=== PATIENT | female | born 1935 | race Caucasian/White ===

== ENCOUNTER → 2016-07-12 | Outpatient (CLI) | payer MEDICARE ==
[2015-09-02 19:00] VITALS: BP 165/85
[~2016-07-12] MED LIST: ALIS300T PO; DILT300C23 PO; MELO-156 PO; ORPH100T PO; TRAM50TA PO
--- NOTE | 2016-07-12 14:53 | RAD ---
Indication screening for osteoporosis. The lumbar spine and right hip were evaluated. Note is made of a previous examination 08/26/2008. The lumbar spine the average bone mineral density is approximately 1.28 g/cc. The average T score is 0.8 however the T score at L1 is -1.6 indicative of some demineralization associated with this vertebral body segment. In the right hip the average bone mineral density is approximately 0.84 g/cc. T score of -1.3 is indicative of osteopenia. Note is made that the right hip was osteopenic on the previous examination as well IMPRESSION: Bony demineralization at L1. The remainder of the lumbar vertebral body segments have normal bone mineral density. Osteopenic right hip similar to the previous exam
--- NOTE | 2016-07-12 15:47 | RAD ---
Indication calcification in the neck. Grayscale color Doppler and spectral imaging was performed. Examination was targeted to the carotid bifurcations. On the left there is some moderate atherosclerotic plaquing. The color Doppler images do not suggest significant turbulence. The common carotid waveform and velocities are normal. The internal carotid is somewhat tortuous. The waveform and velocities associated with the internal carotid are normal. The external carotid has a normal appearance. The left vert demonstrates antegrade flow. On the right there is some plaquing at the carotid bifurcations similar to the contralateral side. The color Doppler images do not suggest significant turbulence. The common carotid waveform and velocities are normal. The internal carotid waveform and velocities are normal. The internal carotid is noted to be tortuous similar to the contralateral side. The external carotid has a normal appearance. The vertebral is patent and demonstrates normal directional flow. IMPRESSION: Modest atherosclerotic plaquing at the carotid bifurcations. No evidence of hemodynamically significant stenosis at either carotid bifurcation. Stenosis 0-50%. Note: Stenosis calculations for CT, MR and conventional angiography are based upon determination of the distal ICA diameter in accordance with the NASCET methodology. Stenosis calculations for doppler studies are derived from validated velocity criteria which are known to correlate with NASCET methodology of determining stenosis.
--- NOTE | 2016-07-12 16:29 | RAD ---
DATE: 07/12/2016 EXAM: MAMMO PATEL SCREENING BILATERAL HISTORY: Screening COMPARISON: Digitized film screening examination 10/17/2012 This study was interpreted with the benefit of Computerized Aided Detection (CAD). FINDINGS: The breast parenchyma shows scattered fibroglandular densities. Breast parenchyma level B. There has been no significant change in the appearance of the breasts compared to the previous exam IMPRESSION: Benign finding BI-RADS CATEGORY: 2 BENIGN FINDING(S) RECOMMENDED FOLLOW-UP: 12M 12 MONTH FOLLOW-UP PQRS compliance statement: Patient information was entered into a reminder system with a target due date 07/12/2017 for the next mammogram. Mammography is a sensitive method for finding small breast cancers, but it does not detect them all and is not a substitute for careful clinical examination. A negative mammogram does not negate a clinically suspicious finding and should not result in delay in biopsying a clinically suspicious abnormality. "Our facility is accredited by the [employer] Mammography Program."
== END | disposition home or self-care (01) ==
LOC: US 13:03
PROVIDERS: ATTEND Family Medicine
DX: Z12.31 Encounter for screening mammogram for malignant neoplasm of breast (principal); Z13.820 Encounter for screening for osteoporosis; M85.80 Other specified disorders of bone density and structure, unspecified site; Z78.0 Asymptomatic menopausal state; I65.23 Occlusion and stenosis of bilateral carotid arteries; R22.1 Localized swelling, mass and lump, neck
CPT/HCPCS: 77063; 77080; 93880; G0202; 77067

== ENCOUNTER → 2016-09-29 | Outpatient (CLI) | payer MEDICARE ==
[2015-09-02 19:00] VITALS: BP 165/85
[~2016-09-29] MED LIST changes: -MELO-156 PO; +MELO7.5T29 PO; +ORPH-16 PO; -ORPH100T PO
--- NOTE | 2016-09-29 15:34 | RAD ---
CT of the chest without contrast, 09/29/2016: History: Infiltrates, COPD Noncontrast scans were obtained as requested. Comparison is made to a study from 06/16/2016. There are mild emphysematous changes in the lungs. Scattered linear parenchymal opacities are compatible with scars. There is unchanged right apical scarring. The small groundglass opacity seen posteriorly in the left upper lobe on the previous study is unchanged. It is currently best visualized on image 35 of series #2 and measures approximately 10 mm. No solid component is seen. A similar groundglass type opacity is noted in the right upper lobe on image 47 of series #2. It measures approximately 12 mm and is unchanged. A smaller hazy groundglass opacity in the superior segment of the right lower lobe as seen on image 80 of series #4 is also unchanged. No new or enlarging pulmonary opacities are seen. There is no evidence of pleural fluid. There is moderate calcific plaquing of the thoracic aorta and the coronary arteries. A small hiatal hernia is noted. Several small mediastinal lymph nodes are seen. The largest of these lies at the AP window level and measures 9 mm in short axis dimension. No definite adenopathy is seen. Incidental note is made of a nonobstructing intrarenal calculus in the upper pole of the left kidney. IMPRESSION: 1. Emphysema with bilateral parenchymal scarring. 2. Unchanged small bilateral groundglass opacities as described above. While these may represent scars, the possibility of atypical adenomatous hyperplasia or adenocarcinoma in situ persists. Further CT follow-up is suggested. According to the latest Fleischner guidelines (2017), follow-up CT in 2 years may be considered. 3. Extensive coronary artery calcifications. 4. Small hiatal hernia. 5. Small left intrarenal calculus. PQRS Compliance Statement: One or more of the following individualized dose reduction techniques were utilized for this examination: 1. Automated exposure control 2. Adjustment of the mA and/or kV according to patient size 3. Use of iterative reconstruction technique
== END | disposition home or self-care (01) ==
LOC: CT 12:41
PROVIDERS: ATTEND Internal Medicine Pulmonary Disease
DX: I25.10 Atherosclerotic heart disease of native coronary artery without angina pectoris (principal); J44.9 Chronic obstructive pulmonary disease, unspecified; K44.9 Diaphragmatic hernia without obstruction or gangrene; Z87.891 Personal history of nicotine dependence
CPT/HCPCS: 71250

== ENCOUNTER → 2016-11-22 | Outpatient (CLI) | payer MEDICARE ==
[2015-09-02 19:00] VITALS: BP 165/85
--- NOTE | 2016-11-22 10:10 | CARD ---
APPROVED REPORT EXAM: Two-dimensional and M-mode echocardiogram with Doppler and color Doppler. Other Information Quality : Average Rhythm : NSR INDICATION Cardiac Disease: CAD 2D DIMENSIONS RVDd3.0 (2.9-3.5cm)Left Atrium(2D)3.0 (1.6-4.0cm) IVSd0.8 (0.7-1.1cm)Aortic Root(2D)2.2 (2.0-3.7cm) LVDd4.4 (3.9-5.9cm)LVOT Diameter2.0 (1.8-2.4cm) PWd0.8 (0.7-1.1cm)LVDs2.9 (2.5-4.0cm) FS (%) 31.3 %SV53.8 ml LVEF(%)60.1 (>50%) Aortic Valve AoV Peak Calvin.121.9cm/sAoV VTI27.8cm AO Peak GR.5.9mmHgLVOT Peak Calvin.84.6cm/s LVOT VTI 22.05cmAO Mean GR.3mmHg FRANCESCO (VMAX)2.42aw9ZRL (VTI)2.50cm2 Mitral Valve MV E Bfmzhkft06.8cm/sMV DECEL DBCN899bt MV A Jpatkxsl80.3cm/sMV MMK42hi E/A Ratio0.7MV A Hrgovhvr344fg MVA (PHT)3.16cm2 Tricuspid Valve TR P. Otbtrnty014rt/sRAP KZMOMOAM9mcVc TR Peak Gr.19jqPfYHFI09niGt Pulmonary Vein S1 Iuxzvilw56.5cm/sD2 Bxwzqygv94.3cm/s LEFT VENTRICLE The left ventricle is normal size. There is normal left ventricular wall thickness. Left ventricle sy stolic function is normal. The Ejection Fraction is 55-60%. There is normal LV segmental wall motion. Tissue Doppler imaging reveals mild left ventricular diastolic dysfunction. There is no ventricular septal defect visualized. RIGHT VENTRICLE The right ventricle is normal size. The right ventricular systolic function is normal. ATRIA The left atrium size is normal. The right atrium size is normal. The interatrial septum is intact wit h no evidence for an atrial septal defect or patent foramen ovale as noted on 2-D or Doppler imaging. AORTIC VALVE The aortic valve is mildly sclerotic and grossly cannot determine if it is trileaflet but the valve a ppears to open well. Doppler and Color Flow revealed no significant aortic regurgitation. There is no significant aortic valvular stenosis. MITRAL VALVE Mitral annular calcification is mild. There is no mitral valve stenosis. Doppler and Color Flow revea led no mitral valve regurgitation noted. TRICUSPID VALVE The tricuspid valve is normal in structure and function. There is tricuspid annular calcification. Do ppler and Color Flow revealed trace to mild tricuspid regurgitation. The PA pressure was estimated at 36 mmHg. There is no tricuspid valve stenosis. PULMONIC VALVE The pulmonic valve is not well visualized. Doppler and Color Flow revealed no pulmonic valvular regur gitation. There is no pulmonic valvular stenosis. GREAT VESSELS The aortic root is normal in size. The ascending aorta is normal in size. Normal pulmonary venous katarina w (Doppler). The IVC is normal in size and collapses >50% with inspiration. PERICARDIAL EFFUSION There is no evidence of significant pericardial effusion. Critical Notification Critical Value: No <Conclusion> Left ventricle systolic function is normal. The Ejection Fraction is 55-60%. There is normal LV segmental wall motion.
== END | disposition home or self-care (01) ==
LOC: ECHO 09:04
PROVIDERS: ATTEND Internal Medicine Cardiovascular Disease
DX: I25.10 Atherosclerotic heart disease of native coronary artery without angina pectoris (principal)
CPT/HCPCS: 93306

== ENCOUNTER → 2017-03-03 | Outpatient (CLI) | payer MEDICARE ==
[2015-09-02 19:00] VITALS: BP 165/85
--- NOTE | 2017-03-03 12:31 | RAD ---
CT study of chest without contrast Indications: Lung nodule follow-up. COPD. Former smoker. Comparison: September 29, 2016. Technique: Noncontrast helical CT scanning of the chest was performed. Without contrast, the sensitivity to detect organ pathology is decreased. PQRS Compliance Statement: One or more of the following individualized dose reduction techniques were utilized for this examination: 1. Automated exposure control 2. Adjustment of the mA and/or kV according to patient size 3. Use of iterative reconstruction technique Findings: No enlarged thoracic lymphadenopathy is evident. Extensive calcified atheromatous disease of the coronary arteries is seen. The heart size is normal. Small hiatal hernia is evident. No focal aneurysmal dilatation of the thoracic aorta is seen. Groundglass nodular lung infiltrate is seen without solid component within the posterior segment of the left upper lobe and hasn't changed significantly. This is seen best on image 117 and series 2. Again seen is a groundglass nodular lung infiltrate within the lateral aspect of the right upper lobe seen best on image 145 and series 2. No solid component is seen. Again seen is chronic scarring within the lingula and both lower lobes and the lateral aspect of the right middle lobe which are stable. No new lung infiltrate is seen. No pleural effusion or pneumothorax is seen. The proximal bronchial tree is stable. No adrenal mass is seen. Punctate renal stone of the upper pole of the left kidney is seen. No osteolytic process is seen. Again seen is a mild compression fracture of T12 which is stable. IMPRESSION: Stable groundglass lung nodules. Recommend follow-up noncontrast chest CT in 2 years as per recommendations of Fleischner criteria guidelines. No acute lung infiltrate. Calcified atheromatous disease of the coronary arteries.
== END | disposition home or self-care (01) ==
LOC: CT 08:44
PROVIDERS: ATTEND Internal Medicine Cardiovascular Disease
DX: J98.4 Other disorders of lung (principal); I25.10 Atherosclerotic heart disease of native coronary artery without angina pectoris; K44.9 Diaphragmatic hernia without obstruction or gangrene; M48.54XD Collapsed vertebra, not elsewhere classified, thoracic region, subsequent encounter for fracture with routine healing; N20.0 Calculus of kidney
CPT/HCPCS: 71250

== ENCOUNTER → 2017-03-21 | Outpatient (CLI) | payer MEDICARE ==
[2015-09-02 19:00] VITALS: BP 165/85
[~2017-03-21] MED LIST changes: +IOHEXOL 300 MG/ML 75 ML VIAL. IV ONE
[2017-03-21 13:33] LABS: CALCIUM 9.3 mg/dL (8.5-10.1); CREATININE 0.9 mg/dL (0.6-1.0); GFR 60.4; POTASSIUM 3.6 mmol/L (3.5-5.1)
--- NOTE | 2017-03-21 15:09 | RAD ---
CT angiogram of the abdomen and pelvis Indication: Leg pain for last 2 days. Physician could not feel femoral pulse. Evaluate for AAA. Technique: CT angiogram of the abdomen and pelvis with 75 mL of Omnipaque 300 with multiplanar MIP reformats. Comparison: None Findings: Heart is normal in size. No pericardial or pleural effusion. Subsegmental atelectasis or scarring in the right lung base. Liver is normal in morphology without focal hepatic lesion. Spleen is not enlarged. Gallstone noted. No pericholecystic fluid or gallbladder wall thickening. Pancreas show no focal lesion. Adrenal glands are within normal limits. No suspicious renal lesion. 1.7 cm simple left renal cyst. No retroperitoneal or pelvic adenopathy. No bowel obstruction. No abnormal bowel wall thickening or enhancement. Bladder within normal limits. Uterus is present. No solid adnexal lesions. Bilateral ovaries are visualized and are within normal limits. Moderate sliding hiatal hernia. Diffuse atherosclerotic disease of the abdominal aorta noted. The infrarenal abdominal aorta measures 1.9 cm in diameter without aneurysmal dilation. Moderate atherosclerotic disease noted at the origin of the celiac axis. The left gastric artery, splenic artery, common hepatic artery are patent. Atherosclerotic disease of the splenic artery noted. SMA is patent with mild atherosclerotic disease at the level of the first jejunal branch takeoff. There is early bifurcation of the right renal artery after its origin without atherosclerotic disease at its origin. Mild atherosclerotic disease noted at the region of the left renal artery which is patent.. ZARIA is thin caliber but patent. There is partially calcified aortic wall with nodular mural thrombus in the infrarenal aorta. Severe atherosclerotic disease with multifocal areas of stenosis seen in the bilateral common iliac arteries and bilateral external/internal iliac arteries with segments demonstrating more than 70% stenosis. More than 70% stenosis noted of the bilateral common femoral arteries. Bilateral profunda femoris arteries are patent. Moderate to severe atherosclerotic disease noted of the bilateral proximal SFA. Old healed fracture deformity of the bilateral inferior pubic rami noted. No suspicious bony lesion. Degenerative disc disease noted at L2-L3 and L5-S1. Impression: 1. No evidence of abdominal aortic aneurysm or dissection. 2. Advanced atherosclerotic disease of the abdominal aorta and bilateral iliac arteries with multifocal areas of stenosis (more than 70%) as discussed above. 3. Cholelithiasis without acute cholecystitis. PQRS Compliance Statement: One or more of the following individualized dose reduction techniques were utilized for this examination: 1. Automated exposure control 2. Adjustment of the mA and/or kV according to patient size 3. Use of iterative reconstruction technique
== END | disposition home or self-care (01) ==
LOC: LAB 12:55
PROVIDERS: ATTEND Family Medicine
DX: I73.89 Other specified peripheral vascular diseases (principal); K44.9 Diaphragmatic hernia without obstruction or gangrene; I70.0 Atherosclerosis of aorta; K80.20 Calculus of gallbladder without cholecystitis without obstruction
CPT/HCPCS: 36415; 74174; 80048; Q9967

== ENCOUNTER 2017-03-22 06:01 | Emergency (ER) | payer MEDICARE ==
[~2017-03-22] VITALS: Ht 170.2 cm; Wt 74.9 kg
[~2017-03-22 06:01] MED LIST changes: -IOHEXOL 300 MG/ML 75 ML VIAL. IV ONE
--- NOTE | 2017-03-22 06:40 | EKG ---
[address] [address] Test Date: 2017-03-22 Test Time: 06:38:08 Pat Name: YOLA MENDOZA Department: Room: Gender: F Pattern Stamper: ALEX : 1935 Requested By: CHARITY WILSON Order Number: [id number] Reading MD: Rubio Velasco Measurements Intervals [place] Rate: 91 P: 39 AR: 134 QRS: -66 QRSD: 88 T: 65 QT: 354 QTc: 437 Interpretive Statements SINUS RHYTHM ABNORMAL LEFT AXIS DEVIATION LEFT ANTERIOR FASCICULAR BLOCK QRS(T) CONTOUR ABNORMALITY CONSIDER ANTEROSEPTAL MYOCARDIAL DAMAGE ABNORMAL ECG Electronically Signed On 03-27-2017 16:41:13 ARCHITECTURAL EXAMINER by Rubio Velasco
[2017-03-22 07:16] LABS: BASO % 0 % (0-3); EOS % 0 % (0-3); HEMATOCRIT 41.9 % (36.0-47.0); LYMPH % 20 % (24-48); MEAN CORPUSCULAR HEMOGLOBIN 31 pg (25-35); MEAN CORPUSCULAR HGB CONC 34 g/dL (31-37); MEAN CORPUSCULAR VOLUME 92 fL (79-100); MONO # 0.8 x10^3/uL (0.0-1.1); MONO % 8 % (0-9); NEUT # 7.3 x10^3uL (1.8-7.7); NEUT % 72 % (31-73); PLATELET COUNT 277 x10^3/uL (140-400); RED BLOOD COUNT 4.54 x10^6/uL (3.50-5.40); RED CELL DISTRIBUTION WIDTH 14.1 % (11.5-14.5); WHITE BLOOD COUNT 10.1 x10^3/uL (4.0-11.0)
--- NOTE | 2017-03-22 07:18 | RAD ---
Portable chest, 03/22/2017: History: COPD, shortness of breath Comparison is made to a study from 01/16/2015. The heart size is normal. There are minimal parenchymal scars. No pulmonary infiltrates are seen. There is no evidence of pleural fluid. IMPRESSION: No acute cardiopulmonary abnormality is detected.
--- NOTE | 2017-03-22 07:24 | PHYS DOC ---
Past History Past Medical History: COPD, Hypothyroid Past Surgical History: Tonsillectomy Alcohol Use: None Drug Use: None Adult General Chief Complaint Chief Complaint: SHORTNESS OF BREATH HPI HPI Patient is a 81-year-old female with a history of COPD who presents by EMS from home with shortness of air. Patient has been somewhat short of air lately. She saw her doctor recently and was started on an antibiotic and prednisone. She has been taking nebulized albuterol treatments at home. She does wear oxygen at night only. Patient was waking every 3 hours overnight last night to take albuterol treatments. This morning she woke up very short of air. Called 911. In route she was given 1 DuoNeb, 1 albuterol treatment, and Solu-Medrol 125 IV. On arrival she states she is feeling much better. PCP Dr. Bonds [employer] Dr. Jama Review of Systems Review of Systems Constitutional: Denies fever or chills [] Respiratory: As in history of present illness Cardiovascular: Denies chest pain GI: Denies vomiting, has had "a little bit" of diarrhea : Denies dysuria or hematuria [] Musculoskeletal: Denies back pain or joint pain [] Integument: Denies rash or skin lesions [] Neurologic: Denies headache, focal weakness or sensory changes [] All other systems were reviewed and found to be within normal limits, except as documented in this note. Allergies Allergies Allergies Coded Allergies Type Severity Reaction Last Updated Verified Tkqrbby-Mqj-Hcl Reductase Inhibitor Allergy Intermediate 03/22/17 Yes Physical Exam Physical Exam Constitutional: Well developed, well nourished, alert, mentating normally, warm and dry. She is mildly dyspneic at rest on the cart, persistent her lips to exhale, speaks in full sentences. HENT: Normocephalic, atraumatic, bilateral external ears normal, oropharynx moist, nose normal. [] Eyes: conjunctiva normal, no discharge. [] Neck: Normal range of motion, no stridor. [] Cardiovascular:Heart rate regular rhythm, no murmur [] Lungs & Thorax: Breath sounds are mildly decreased throughout. Prolonged expiratory phase. Expiratory wheezes present throughout. No consolidative changes. Abdomen: soft, no tenderness, no masses, no pulsatile masses. [] Skin: Warm, dry, no erythema, no rash. [] Extremities: No tenderness, no cyanosis, no clubbing, ROM intact, no edema. [] Neurologic: Alert and oriented X 3, normal motor function, no focal deficits noted. [] Current Patient Data Vital Signs Vital Signs Date Time Temp Pulse Resp B/P (MAP) Pulse Ox O2 Delivery O2 Flow Rate FiO2 03/22/17 06:28 98.5 87 18 94 Nasal Cannula 3.0 EKG EKG 12-lead EKG read by me. Sinus rhythm. Heart rate 91. There are no acute ST or T wave changes indicative of ischemia or infarction. No STEMI. [id number][] Radiology/Procedures Radiology/Procedures One view portable chest x-ray read by me. No acute infiltrates. Heart size normal. No pulmonary edema.[] Course & Med Decision Making Course & Med Decision Making Pertinent Labs and Imaging studies reviewed. (See chart for details) 81-year-old female with a history of COPD presents by EMS with shortness of air. EMS describes the patient as significantly dyspneic and an extremist on their arrival, however, she was given a DuoNeb plus an albuterol treatment plus Solu-Medrol 125 IV by EMS and on arrival to the ED she has improved. She remains slightly dyspneic at rest wearing oxygen, which is not her usual baseline. She will need to be hospitalized for pulmonary toilet, oxygen, IV steroids. I discussed this with the patient. Labs returned with elevated troponin. I revisited the patient. She has not had any chest pain. I reviewed the EKG. There is no STEMI pattern. I reviewed the patient's record. She did have a very similar presentation in 2014 when she presented with apparent COPD exacerbation, had elevated troponin, was transferred to [facility] for urgent cardiac catheterization where she had 3 stents placed. I discussed the case with Dr. Rodriguez, [facility]. She would like to consult cardiology on disposition [facility] versus [facility]. I discussed the case with Dr. Rowan, cardiology. He reviewed the patient's cardiac catheter and records. He recommends transfer to [facility] for hospitalization, cardiology evaluation. He feels that she may end up needing a heart catheter and so he wants her to be at [facility]. I discussed admission and transferred to [facility] with the patient and her family who are agreeable. The patient prefers not to be admitted to the hospital at all, but I discussed the reasoning behind admitting her and her family is agreeable to admitting her to [facility]. I discussed the case with Dr. Rangel, [facility]. He will accept the patient. Transfer paperwork was completed. The patient will be transferred in stable condition to [facility] for admission. We will give the patient aspirin and heparin here prior to transfer. Critical care time 60 minutes including bedside evaluation and reevaluation, evaluation and treatment of non-STEMI, reading EKG, discussion with [facility] hospitalist, discussion with die barber, discussion with [facility] hospitalist, discussion of diagnosis and transfer plans with patient and family, initiation of heparin, review of old records, documentation, writing orders, transfer arrangements. [] Dragon Disclaimer Dragon Disclaimer This electronic medical record was generated, in whole or in part, using a voice recognition dictation system. Departure Departure: Impression: Primary Impression: Non-STEMI (non-ST elevated myocardial infarction) Additional Impression: COPD exacerbation Referrals: IAN BONDS MD (PCP) Problem Qualifiers CHARITY WILSON MD Mar 22, 2017 07:24
[2017-03-22 07:42] LABS: ALBUMIN 3.4 g/dL (3.4-5.0); CALCIUM 8.9 mg/dL (8.5-10.1); GFR 53.5; POTASSIUM 3.7 mmol/L (3.5-5.1); TOTAL BILIRUBIN 0.3 mg/dL (0.2-1.0); TOTAL PROTEIN 6.9 g/dL (6.4-8.2)
[2017-03-22] MEDS ORDERED: HEPARIN 25,000UTS/500ML PREMIX 500 ML IV PRN (08:45)
[2017-03-22] MEDS ORDERED: ASPIRIN 81 MG TAB.CHEW PO ONE (09:00)
[2017-03-22] MEDS ORDERED: HEPARIN for IV BOLUS 10,000 UNIT/10 ML VIAL. IV ONE (09:00)
[2017-03-22] MEDS ORDERED: IPRATRPIUM/ALBUTEROL 0.5/2.5MG 3 ML NEBU. NEB ONE (10:00)
[2017-03-22 10:20] VITALS: BP 124/85
== END 2017-03-22 10:50 | disposition short-term general hospital (02) ==
LOC: ER 06:01
DX: J44.1 Chronic obstructive pulmonary disease with (acute) exacerbation (principal); I21.4 Non-ST elevation (NSTEMI) myocardial infarction; E03.9 Hypothyroidism, unspecified; Z99.81 Dependence on supplemental oxygen; Z88.8 Allergy status to other drugs, medicaments and biological substances
CPT/HCPCS: 36415; 71010; 80053; 82553; 83880; 84484; 85025; 93005; 94640; 96365; 96366; 99291; J1644; J7620

== ENCOUNTER 2017-06-02 15:37 | Emergency (ER) | payer MEDICARE ==
[~2017-06-02] VITALS: Ht 170.2 cm; Wt 74.9 kg
[2017-06-02] MEDS ORDERED: ASPIRIN 81 MG TAB.CHEW PO ONE (16:00)
[2017-06-02] MEDS ORDERED: methylPREDNISolone SOD SUCC PF 125 MG/2 ML VIAL. IV ONE (16:00)
[2017-06-02 16:14] LABS: BASO # 0.1 x10^3/uL (0.0-0.2); BASO % 1 % (0-3); EOS # 0.2 x10^3/uL (0.0-0.7); EOS % 2 % (0-3); HEMATOCRIT 44.4 % (36.0-47.0); HEMOGLOBIN 14.8 g/dL (12.0-15.5); LYMPH # 2.1 x10^3/uL (1.0-4.8); LYMPH % 20 % (24-48); MEAN CORPUSCULAR HEMOGLOBIN 30 pg (25-35); MEAN CORPUSCULAR HGB CONC 33 g/dL (31-37); MEAN CORPUSCULAR VOLUME 91 fL (79-100); MONO # 0.7 x10^3/uL (0.0-1.1); MONO % 7 % (0-9); NEUT # 7.4 x10^3uL (1.8-7.7); NEUT % 71 % (31-73); PLATELET COUNT 314 x10^3/uL (140-400); RED BLOOD COUNT 4.87 x10^6/uL (3.50-5.40); WHITE BLOOD COUNT 10.4 x10^3/uL (4.0-11.0)
--- NOTE | 2017-06-02 16:14 | RAD ---
Examination: Single frontal view the chest HISTORY: History of shortness of breath COMPARISON: None available FINDINGS: The cardiomediastinal silhouette grossly appears unremarkable. There is no acute infiltrate or visualized pneumothorax identified. IMPRESSION: No acute cardiopulmonary findings. Electronically signed by: Nagi Minor MD (06/02/2017 4:11 PM) [id number]
[2017-06-02 16:38] LABS: ALBUMIN 3.7 g/dL (3.4-5.0); ALBUMIN/GLOBULIN RATIO 1.1 (1.0-1.7); CALCIUM 10.2 mg/dL (8.5-10.1); CREATININE 0.9 mg/dL (0.6-1.0); GFR 60.4; INFLUENZA A PATIENT NEGATIVE (NEGATIVE); INFLUENZA B PATIENT NEGATIVE (NEGATIVE); POTASSIUM 4.1 mmol/L (3.5-5.1); TOTAL BILIRUBIN 0.4 mg/dL (0.2-1.0); TOTAL PROTEIN 7.1 g/dL (6.4-8.2)
--- NOTE | 2017-06-02 16:45 | PHYS DOC ---
General Chief Complaint: SHORTNESS OF BREATH Stated Complaint: SOA Time Seen by MD: 15:45 Source: patient Exam Limitations: no limitations Problems: History of Present Illness Initial Comments Patient is a 81-year-old female with history of COPD brought to the ED by EMS dyspnea. Patient states for the past 24 hours she's had shortness of breath and nonproductive cough. She has history of COPD and has home O2 for nighttime use however has been using it throughout the day today. She denies any chest pain fever chills or body aches, dyspnea primarily with activity none at rest. EMS reports symptomatic improvement with nebulizer treatment en route, on arrival vital signs: 98.1, 66, 20, 164/75, 93% on room air. Timing/Duration: 24 hours Severity: severe Modifying Factors: worse with movement, improves with rest Associated Symptoms: cough, shortness of breath, weakness Allergies: Coded Allergies: Kizofvz-Fgr-Tyi Reductase Inhibitor (Verified Allergy, Intermediate, 03/22) Past Medical History Medical History: other (COPD, hypothyroid) Surgical History: tonsillectomy Social History Smoker: quit greater than 1 year Alcohol: none Drugs: none Review of Systems Constitutional: see HPI Respiratory: see HPI Cardiovascular: denies chest pain, denies palpitations Gastrointestinal: denies abdominal pain, denies vomiting Musculoskeletal: denies back pain, denies joint swelling, denies neck pain Psychiatric/Neurological: denies headache, denies numbness, denies paresthesia Hematologic/Lymphatic: denies blood clots, denies easy bleeding, denies easy bruising Physical Exam General Appearance: WD/WN, mild distress Eyes: bilateral eye normal inspection, bilateral eye PERRL, bilateral eye EOMI Ear, Nose, Throat: hearing grossly normal, normal ENT inspection, normal pharynx Neck: non-tender, supple Respiratory: chest non-tender, respiratory distress, other (decreased breath sounds with fair air movement and slight wheeze, accessory muscle use,) Cardiovascular: normal peripheral pulses, regular rate, rhythm Gastrointestinal: non tender, soft Extremities: non-tender, normal inspection, no calf tenderness Neurologic/Psychiatric: ophthalmic asst II-XII nml as tested, no motor/sensory deficits, alert, normal mood/affect, oriented x 3 Skin: normal color, warm/dry Orders, Labs, Meds EKG: Normal sinus rhythm 64 bpm, no ST segment elevation interpreted by me PATIENT: YOLA MENDOZA ACCOUNT: [id number] : 1935 LOCATION: ER AGE: 81 SEX: F EXAM STATUS: REG ER ORD. PHYSICIAN: LIA IVERSON DO REASON: sob PROCEDURE: PORTABLE CHEST 1V Examination: Single frontal view the chest HISTORY: History of shortness of breath COMPARISON: None available FINDINGS: The cardiomediastinal silhouette grossly appears unremarkable. There is no acute infiltrate or visualized pneumothorax identified. IMPRESSION: No acute cardiopulmonary findings. Electronically signed by: Nagi Minor MD (06/02/2017 4:11 PM) [facility] DICTATED AND SIGNED BY: NAGI MINOR MD DATE: 06/02/171607 CC: IAN ALVARADO MD; LIA IVERSON DO ~ ABG: PH 7.446, PCO2 43.9, PO2 54, base excess 6, bicarbonate 30.2, PCO2 32, oxygen saturation 89% FiO2 21% Patient received multiple nebulizer treatments as well as Solu-Medrol 125 mg IV. Labs unremarkable influenza studies negative I discussed the need with the patient for inpatient treatment. Patient states that she will refused inpatient treatment as she wants to go home. She feels like she is doing better and oxygen saturation is hovering right at 90% on room air. With any activity or conversation does drop into the high 80s. I discussed risks and benefits of staying versus leaving. Potential benefits of staying are lifesaving, potential risks of leaving or loss of quality of life, worsening of condition, and . Patient asks to be ambulated and after ambulation the medic reports that her sats maintained above 90% on room air. Once she sat down sats intermittently drops to 89% with conversation. I reiterated the need for inpatient treatment, patient's family arrived and had a prolonged discussion with her proceeding with her to stay. Ultimately the patient has decided to leave AGAINST MEDICAL ADVICE she is alert and oriented 3 and not under the influence of any intoxicating substance, she exhibits UCAR capacity. I discussed departure instructions [id number] with her and advised her to return if she changed her mind. She expressed agreement and understanding of treatment plan. Departure Time of Disposition: 18:19 Disposition: 01 HOME, SELF-CARE Diagnosis: COPD Exac, Acute on Chronic Resp Failure Condition: GUARDED Patient Instructions: Chronic Obstructive Pulmonary Disease Exacerbation, Easy- to-Read, Hypoxemia Additional Instructions: As discussed, inpatient treatment has been recommended to you however you have declined for now. Risks and benefits of staying versus leaving have been discussed with you in detail and you are aware that you may return at any time for evaluation and treatment. Rest, no strenuous activity. Continue home medications including albuterol nebulizer treatments every 4 hours as needed. Prescription: DuoNeb, prednisone, Zithromax Follow-up with your doctor on Monday for recheck. Return to the ED if you change your mind or if new or changing symptoms. LIA IVERSON DO Jun 02, 2017 16:45
[2017-06-02] MEDS ORDERED: IPRATRPIUM/ALBUTEROL 0.5/2.5MG 3 ML NEBU. NEB ONE (17:00)
[2017-06-02 17:20] LABS: BGAS PH 7.45 (7.35-7.45)
[2017-06-02] MEDS ORDERED: PRED20TA PO (18:18)
[2017-06-02] MEDS ORDERED: IPRA3AMP NEB (18:18)
[2017-06-02] MEDS ORDERED: AZIT250T PO (18:18)
[2017-06-02 18:34] VITALS: BP 143/74
--- NOTE | 2017-06-02 19:06 | EKG ---
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 ABNORMAL ECG RI6.01 Compared to ECG 03/22/2017 06:38:08 No significant changes Electronically Signed On 06-05-2017 16:19:21 [employer] by Abdiel Mosher
== END 2017-06-02 18:36 | disposition home or self-care (01) ==
LOC: ER 15:37
DX: J44.1 Chronic obstructive pulmonary disease with (acute) exacerbation (principal); J96.20 Acute and chronic respiratory failure, unspecified whether with hypoxia or hypercapnia; E03.9 Hypothyroidism, unspecified; Z99.81 Dependence on supplemental oxygen; Z87.891 Personal history of nicotine dependence; Z88.8 Allergy status to other drugs, medicaments and biological substances
CPT/HCPCS: 36415; 71045; 80053; 82550; 82803; 83690; 83880; 84484; 85025; 87804; 93005; 94640; 96374; 99285; J2930; J7620

== ENCOUNTER 2017-06-12 18:47 | Inpatient (IN) | payer MEDICARE ==
[~2017-06-12] VITALS: Ht 170.2 cm; Wt 73.7 kg
[~2017-06-12 18:47] MED LIST changes: +AZIT250T PO; +IPRA3AMP NEB; +PRED20TA PO
--- NOTE | 2017-06-12 19:09 | ED.ADGEN ---
Past History Past Medical History: COPD, Hypothyroid Past Surgical History: Tonsillectomy Alcohol Use: None Drug Use: None Adult General Chief Complaint Chief Complaint "...I more short of breath again... " " I ve been in to [facility] three times over the past year..." " I do wear oxygen at night... " " But I am a lot more short of breath today..." HPI HPI Patient is a 81 year old female who presents with above hx and compliant of increased dyspnea. She has a history of COPD, 2 prior MIs, and episodes of bronchitis. Patient denies any travel or specific ill contacts. Patient noted she cannot walk across marked dyspnea. Patient ambulatory sat here in the emergency department was less than 80% upon walking to the bathroom. Patient normally follows with Dr. Bonds. Review of Systems Review of Systems Constitutional: subjective fever or chills [] Eyes: Denies change in visual acuity, redness, or eye pain [] HENT: Denies nasal congestion or sore throat [] Respiratory: Hx. cough and shortness of breath [] Cardiovascular: No additional information not addressed in HPI [] GI: Denies abdominal pain, nausea, vomiting, bloody stools or diarrhea [] : Denies dysuria or hematuria [] Musculoskeletal: Denies back pain or joint pain [] Integument: Denies rash or skin lesions [] Neurologic: Denies headache, focal weakness or sensory changes [] Endocrine: Denies polyuria or polydipsia [] All other systems were reviewed and found to be within normal limits, except as documented in this note. Family History Family History Non- contributory Current Medications Current Medications Current Medications Medications (Trade) Dose Ordered Sig/Chris Start Time Stop Time Status Last Admin Dose Admin Albuterol/ Ipratropium (Duoneb) 3 ml 1X ONCE 06/12/17 19:30 06/12/17 19:31 DC 06/12/17 19:45 3 ML Aspirin (Children'S Aspirin) 324 mg 1X ONCE 06/12/17 19:30 06/12/17 19:31 DC 06/12/17 19:57 324 MG Ceftriaxone Sodium 1 gm/ Sodium Chloride 50 ml @ 100 mls/hr 1X ONCE 06/12/17 19:15 06/12/17 19:44 UNV Ceftriaxone Sodium (Rocephin) 1 gm 1X ONCE 06/12/17 19:45 06/12/17 19:46 DC 06/12/17 20:36 1 GM Iohexol (Omnipaque 300 Mg/ml) 75 ml 1X ONCE 06/12/17 20:45 06/12/17 20:46 DC 06/12/17 20:52 75 ML Methylprednisolone Sodium Succinate (SOLU-Medrol 125MG VIAL) 125 mg 1X ONCE 06/12/17 19:30 06/12/17 19:31 DC 06/12/17 19:59 125 MG Allergies Allergies Allergies Coded Allergies Type Severity Reaction Last Updated Verified Rdxaunq-Xfh-Hzc Reductase Inhibitor Allergy Intermediate 03/22/17 Yes Physical Exam Physical Exam Constitutional: om acute distress, non-toxic appearance. [] HENT: Normocephalic, atraumatic, bilateral external ears normal, oropharynx moist, no oral exudates, nose rhinorrhea. Eyes: PERRLA, EOMI, conjunctiva normal, no discharge. [] Neck: Normal range of motion, no tenderness, supple, no stridor. [] Cardiovascular:Heart rate regular rhythm, no murmur []PMI to Lt. Lungs & Thorax: Bilateral breath sounds equal with scattered wheezes on auscultation [] Abdomen: Bowel sounds normal, soft, no tenderness, no masses, no pulsatile masses. [] Skin: Warm, dry, no erythema, no rash. [] Back: No tenderness, no CVA tenderness. [] Extremities: No tenderness, no cyanosis, no clubbing, ROM intact, no edema. Arthritis. No cording appreciated Neurologic: Alert and oriented X 3, normal motor function, normal sensory function, no focal deficits noted. [] Psychologic: Affect anxious, judgement normal, mood normal. [] Current Patient Data Vital Signs Vital Signs Date Time Temp Pulse Resp B/P (MAP) Pulse Ox O2 Delivery O2 Flow Rate FiO2 06/12/17 21:30 61 16 136/76 (96) 98 Nasal Cannula 2.0 06/12/17 18:50 98.4 Lab Results Laboratory Tests Test 06/12/17 19:18 06/12/17 19:25 06/12/17 19:35 Influenza Type A (Rapid) Negative (NEGATIVE) Influenza Type B (Rapid) Negative (NEGATIVE) Group A Streptococcus Rapid Negative (NEGATIVE) White Blood Count 14.0 x10^3/uL (4.0-11.0) H Red Blood Count 4.91 x10^6/uL (3.50-5.40) Hemoglobin 14.8 g/dL (12.0-15.5) Hematocrit 44.7 % (36.0-47.0) Mean Corpuscular Volume 91 fL (79-100) Mean Corpuscular Hemoglobin 30 pg (25-35) Mean Corpuscular Hemoglobin Concent 33 g/dL (31-37) Red Cell Distribution Width 13.8 % (11.5-14.5) Platelet Count 335 x10^3/uL (140-400) Neutrophils (%) (Auto) 60 % (31-73) Lymphocytes (%) (Auto) 26 % (24-48) Monocytes (%) (Auto) 10 % (0-9) H Eosinophils (%) (Auto) 4 % (0-3) H Basophils (%) (Auto) 1 % (0-3) Neutrophils # (Auto) 8.3 x10^3uL (1.8-7.7) H Lymphocytes # (Auto) 3.7 x10^3/uL (1.0-4.8) Monocytes # (Auto) 1.4 x10^3/uL (0.0-1.1) H Eosinophils # (Auto) 0.5 x10^3/uL (0.0-0.7) Basophils # (Auto) 0.1 x10^3/uL (0.0-0.2) Segmented Neutrophils % 54 % (35-66) Band Neutrophils % 4 % (0-9) Lymphocytes % 31 % (24-48) Monocytes % 10 % (0-10) Eosinophils % 1 % (0-5) Platelet Estimate Adequate (ADEQUATE) Prothrombin Time < 9.3 SEC (9.4-11.4) L Prothrombin Time INR 0.9 (0.9-1.1) PTT 23 SEC (23-33) D-Dimer (Lindsey) 0.91 mg/L (0.00-0.50) H Urine Collection Type Unknown Urine Color Yellow Urine Clarity Clear Urine pH 7.0 Urine Specific [place] 1.010 Urine Protein Neg (NEG-TRACE) Urine Glucose (UA) Neg mg/dL (NEG) Urine Ketones (Stick) Neg mg/dL (NEG) Urine Blood Neg (NEG) Urine Nitrite Neg (NEG) Urine Bilirubin Neg (NEG) Urine Urobilinogen Dipstick 0.2 mg/dL (0.2 mg/dL) Urine Leukocyte Esterase Neg (NEG) Urine RBC 0 /HPF (0-2) Urine WBC Occ /HPF (0-4) Urine Squamous Epithelial Cells Occ /LPF Urine Bacteria 0 /HPF (0-FEW) Sodium Level 139 mmol/L (136-145) Potassium Level 5.0 mmol/L (3.5-5.1) Chloride Level 99 mmol/L (98-107) Carbon Dioxide Level 34 mmol/L (21-32) H Anion Gap 6 (6-14) Blood Urea Nitrogen 11 mg/dL (7-20) Creatinine 0.8 mg/dL (0.6-1.0) Estimated GFR (Cockcroft-Gault) 69.2 Glucose Level 91 mg/dL (70-99) Lactic Acid Level 1.8 mmol/L (0.4-2.0) Calcium Level 9.3 mg/dL (8.5-10.1) Magnesium Level 2.0 mg/dL (1.8-2.4) Total Bilirubin 0.4 mg/dL (0.2-1.0) Direct Bilirubin < 0.1 mg/dL (0.0-0.2) Aspartate Amino Transferase (AST) 38 U/L (15-37) H Alanine Aminotransferase (ALT) 31 U/L (14-59) Alkaline Phosphatase 67 U/L (46-116) Creatine Kinase 99 U/L (26-192) Creatine Kinase MB (Mass) 3.1 ng/mL (0.0-3.6) Creatine Kinase MB Relative Index 3.1 % (0-4) Troponin I Quantitative < 0.017 ng/mL (0-0.055) PF-Cso-F-Type Natriuretic Peptide 393 pg/mL (0-449) Total Protein 7.2 g/dL (6.4-8.2) Albumin 3.5 g/dL (3.4-5.0) Lipase 231 U/L (73-393) Blood pH 7.42 (7.35-7.45) Blood Gas PCO2 46 mmHg (35-45) H Blood Gas PO2 62 mmHg (71-100) L Blood Gas HCO3 30 mmol/L (22-26) H Arterial Bld O2 Saturation (Calc) 91 % (92-99) L FiO2 21 % EKG EKG My interpretation EKG shows a sinus rhythm at 63 bpm. There is a left axis deviation. A fascicular block. There is some nonspecific anterior septal changes but no findings acute STEMI of contralateral changes.[] Radiology/Procedures Radiology/Procedures My interpretation of chest x-ray shows[] hyperexpansion since findings consistent with emphysema and COPD. No large consolidation appreciated. CT chest shows no findings of pulmonary embolism. Does have some apical findings consistent with chronic/possible infiltrates. See formal report when available Course & Med Decision Making Course & Med Decision Making Pertinent Labs and Imaging studies reviewed. (See chart for details) Discussed presentation, testing and treatment plan with Dr. Rodriguez . Will admit for further evaluation and treatment [] Final Impression Final Impression 1. Respiratory Failure- Hypoxia 2. COPD/Emphysema Exacerbation 3. Leukocytosis 4. Elevated D-dimer[] 5. Atypical pneumonia/ infiltrate Problems: Dragon Disclaimer Dragon Disclaimer This electronic medical record was generated, in whole or in part, using a voice recognition dictation system. MICHEAL MARTIN MD Jun 12, 2017 19:09
[2017-06-12] MEDS ORDERED: methylPREDNISolone SOD SUCC PF 125 MG/2 ML VIAL. IV ONE (19:30)
[2017-06-12] MEDS ORDERED: ASPIRIN 81 MG TAB.CHEW PO ONE (19:30)
[2017-06-12] MEDS ORDERED: IPRATRPIUM/ALBUTEROL 0.5/2.5MG 3 ML NEBU. NEB ONE ×2 (19:30→23:15)
[2017-06-12] MEDS ORDERED: cefTRIAXone IV Push 1 GM VIAL. IVP ONE (19:45)
[2017-06-12 19:49] LABS: BGAS PH 7.42 (7.35-7.45)
[2017-06-12 19:57] LABS: BASO # 0.1 x10^3/uL (0.0-0.2); BASO % 1 % (0-3); EOS # 0.5 x10^3/uL (0.0-0.7); EOS % 4 % (0-3); HEMATOCRIT 44.7 % (36.0-47.0); HEMOGLOBIN 14.8 g/dL (12.0-15.5); LYMPH # 3.7 x10^3/uL (1.0-4.8); LYMPH % 26 % (24-48); MEAN CORPUSCULAR HEMOGLOBIN 30 pg (25-35); MEAN CORPUSCULAR HGB CONC 33 g/dL (31-37); MEAN CORPUSCULAR VOLUME 91 fL (79-100); MONO # 1.4 x10^3/uL (0.0-1.1); MONO % 10 % (0-9); NEUT # 8.3 x10^3uL (1.8-7.7); NEUT % 60 % (31-73); PLATELET COUNT 335 x10^3/uL (140-400); RED BLOOD COUNT 4.91 x10^6/uL (3.50-5.40); RED CELL DISTRIBUTION WIDTH 13.8 % (11.5-14.5)
[2017-06-12 20:20] LABS: ALBUMIN 3.5 g/dL (3.4-5.0); ALK PHOS 67 U/L (46-116); ALT (SGPT) 31 U/L (14-59); ANION GAP 6 (6-14); AST (SGOT) 38 U/L (15-37); BLOOD UREA NITROGEN 11 mg/dL (7-20); CALCIUM 9.3 mg/dL (8.5-10.1); CARBON DIOXIDE 34 mmol/L (21-32); CHLORIDE 99 mmol/L (98-107); CREATININE 0.8 mg/dL (0.6-1.0); GFR 69.2; GLUCOSE 91 mg/dL (70-99); LIPASE 231 U/L (73-393); SODIUM 139 mmol/L (136-145); TOTAL BILIRUBIN 0.4 mg/dL (0.2-1.0); TOTAL PROTEIN 7.2 g/dL (6.4-8.2)
[2017-06-12 20:21] LABS: DIRECT BILIRUBIN < 0.1 mg/dL (0.0-0.2)
[2017-06-12 20:35] LABS: INFLUENZA A PATIENT NEGATIVE (NEGATIVE); INFLUENZA B PATIENT NEGATIVE (NEGATIVE)
[2017-06-12] MEDS ORDERED: IOHEXOL 300 MG/ML 75 ML VIAL. IV ONE (20:45)
--- NOTE | 2017-06-12 21:20 | RAD ---
EXAM: CT angiography of the chest with intravenous contrast. HISTORY: Dyspnea. TECHNIQUE: Computed tomographic images of the chest were obtained following the administration of 75 cc Omnipaque 300 intravenous contrast according to angiography protocol. Multiplanar reformatting was performed and 3-dimensional maximum intensity projection images were obtained. *One or more of the following individualized dose reduction techniques were utilized for this examination: 1. Automated exposure control. 2. Adjustment of the mA and/or kV according to patient size. 3. Use of iterative reconstruction technique. COMPARISON: 06/16/2016. FINDINGS: There is no pulmonary embolism. The heart is normal in size. There is coronary artery atherosclerosis. There is no aortic aneurysm or dissection. The left vertebral artery originates directly from the aortic arch, a normal there. No pathologically enlarged mediastinal or hilar lymph node is seen. There is pulmonary emphysema. There is no pneumothorax or pleural effusion. There is bilateral basilar atelectasis or scarring. There are irregular groundglass opacities within the bilateral upper lobes, measuring approximately 1.8 cm on the right and 1.7 cm on the left. There is biapical scarring. There is a small hiatal hernia. There is cholelithiasis. There are calcifications along the head of the pancreas which are likely extraparenchymal. There is a 3 mm nonobstructing left renal stone. There is no suspicious osseous lesion. IMPRESSION: 1. No evidence of pulmonary embolism. 2. Pulmonary emphysema. 3. 1.8 cm right and 1.7 cm left upper lobe groundglass opacities. These are similar compared to the prior study. These may be postinflammatory or postinfectious. However, continued CT follow-up is recommended to exclude a neoplasm such as bronchoalveolar cell carcinoma. 4. Cholelithiasis and left nephrolithiasis. Electronically signed by: Lisa Vuong MD (06/12/2017 9:16 PM) [facility]
[2017-06-12 22:08] LABS: BACTERIA,URINE 0 /HPF (0-FEW); BILIRUBIN,URINE NEG (NEG); CLARITY,URINE CLEAR; COLOR,URINE YELLOW; GLUCOSE,URINE NEG (NEG); NITRITE,URINE NEG (NEG); RBC,URINE 0 /HPF (0-2); SQUAMOUS EPITHELIAL CELL,UR OCC /LPF; UROBILINOGEN,URINE 0.2 mg/dL (0.2 mg/dL); WBC,URINE OCC /HPF (0-4)
[2017-06-12] MEDS ORDERED: ENOXAPARIN ** NOTE DOSE ** SYRINGE SQ ONE (22:30)
[2017-06-12] MEDS ORDERED: ONDANSETRON PF 4 MG/2 ML VIAL. IV PRN (22:30)
[2017-06-12] MEDS ORDERED: AZITHROMYCIN 250 MG TABLET. PO ONE (22:45)
[2017-06-12 23:23] LABS: % BANDS 4 % (0-9); % EOS 1 % (0-5); % LYMPHS 31 % (24-48); % MONOS 10 % (0-10); % SEGS 54 % (35-66)
[2017-06-12 23:24] LABS: PLT ESTIMATE ADEQUATE (ADEQUATE)
[2017-06-13 00:35] VITALS: BP 147/84
[2017-06-13 05:14] VITALS: BP 140/70
[2017-06-13] MEDS ORDERED: IPRATRPIUM/ALBUTEROL 0.5/2.5MG 3 ML NEBU. ONE (05:18)
[2017-06-13] MEDS: IPRATRPIUM/ALBUTEROL 0.5/2.5MG 3 ML NEBU. NEB SCH ×5 (06:13→21:54)
[2017-06-13 06:46] LABS: BASO % 0 % (0-3); EOS % 0 % (0-3); HEMATOCRIT 40.6 % (36.0-47.0); HEMOGLOBIN 13.4 g/dL (12.0-15.5); LYMPH # 1.5 x10^3/uL (1.0-4.8); LYMPH % 12 % (24-48); MEAN CORPUSCULAR HEMOGLOBIN 30 pg (25-35); MEAN CORPUSCULAR HGB CONC 33 g/dL (31-37); MEAN CORPUSCULAR VOLUME 91 fL (79-100); MONO # 0.2 x10^3/uL (0.0-1.1); MONO % 1 % (0-9); NEUT # 11.2 x10^3uL (1.8-7.7); NEUT % 87 % (31-73); PLATELET COUNT 296 x10^3/uL (140-400); RED BLOOD COUNT 4.44 x10^6/uL (3.50-5.40); WHITE BLOOD COUNT 12.8 x10^3/uL (4.0-11.0)
[2017-06-13 06:56] LABS: CALCIUM 9.4 mg/dL (8.5-10.1); CREATININE 1.1 mg/dL (0.6-1.0); GFR 47.9; POTASSIUM 3.9 mmol/L (3.5-5.1)
[2017-06-13] MEDS: methylPREDNISolone SOD SUCC PF 125 MG/2 ML VIAL. IV SCH (07:12)
[2017-06-13] MEDS ORDERED: LEVO75TA5 PO (07:53)
--- NOTE | 2017-06-13 08:30 | EKG ---
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
--- NOTE | 2017-06-13 08:50 | RAD ---
2 view CXR: Clinical indications: Dyspnea tonight. Comparison: June 02, 2017 Findings: Hyperinflation is seen consistent with COPD. No acute lung infiltrate or pleural effusion or pulmonary edema or lung mass or pneumothorax is seen. The heart size, pulmonary vasculature, mediastinum and both kala are unremarkable. The osseous structures appear intact. Impression: No acute radiographic abnormality is seen. COPD.
[2017-06-13] MEDS ORDERED: ENOXAPARIN ** NOTE DOSE ** SYRINGE SQ SCH (09:00)
[2017-06-13] MEDS ORDERED: CLOP75TA PO (10:00)
[2017-06-13] MEDS ORDERED: METO25TA4 PO (10:00)
[2017-06-13] MEDS ORDERED: LOSA100T6 PO (10:00)
[2017-06-13] MEDS ORDERED: PARO20TA3 PO (10:00)
[2017-06-13] MEDS ORDERED: MULT1TAB52 PO (10:07)
[2017-06-13] MEDS ORDERED: ASCO1TAB2 PO (10:07)
[2017-06-13] MEDS ORDERED: CHOL10003 PO (10:07)
[2017-06-13] MEDS ORDERED: GLUC1TAB33 PO (10:07)
[2017-06-13 10:25] VITALS: BP 166/70
--- NOTE | 2017-06-13 12:23 | RAD ---
Left leg venous Doppler study: Clinical indications: Left leg swelling and pain. Hypoxia. Elevated d-dimer. Findings: Duplex sonography (including menjivar scale evaluation and color flow and waveform spectral analysis) of the proximal aspect of the greater saphenous vein and the proximal aspect of the profunda femoral vein and the entire length of the common femoral and superficial femoral and popliteal veins and the tibioperoneal trunk and the proximal aspect of the posterior tibial and peroneal veins of the left leg was performed. Normal compressibility, augmentation of color Doppler flow after calf compression, and respiratory variation of Doppler flow is seen. Thus, there are no sonographic findings of deep venous thrombosis within these veins. Impression: There are no sonographic findings of deep venous thrombosis within the veins discussed above of the left lower extremity. Right leg venous Doppler study: Clinical indications: Right leg swelling and pain. Hypoxia. Elevated d-dimer. Findings: Duplex sonography (including menjivar scale evaluation and color flow and waveform spectral analysis) of the proximal aspect of the greater saphenous vein and proximal aspect of the profunda femoral vein and the entire length of the common femoral and superficial femoral and popliteal veins and the tibioperoneal trunk and the proximal aspect of the posterior tibial and peroneal veins of the right leg was performed. Normal compressibility, augmentation of color Doppler flow after calf compression, and respiratory variation of Doppler flow is seen. Thus, there are no sonographic findings of deep venous thrombosis within these veins. Impression: There are no sonographic findings of deep venous thrombosis within the veins discussed above of the right lower extremity.
[2017-06-13] MEDS ORDERED: CALCIUM CARBONATE 500 MG TAB.CHEW PO PRN (13:45)
--- NOTE | 2017-06-13 13:50 | HP ---
ADMIT DATE: 06/12/2017 REASON FOR ADMISSION: This is a 81-year-old female patient of Dr. Erasmo Bonds who presented to the Emergency Room complaining of increased dyspnea. She had been seen in Dr. Bonds's office and had been prescribed a Z-ISRAEL on 06/06. She has been able to be eating and drinking. She has been doing her breathing treatments. Denies fever, but she states her sats were less than 90 with exertion and they are in the 90s with rest. She uses nighttime oxygen. PAST MEDICAL HISTORY: COPD, acute bronchitis, anxiety, hypothyroidism, coronary artery disease, chronic bronchitis, major depression, hypercalcemia, peripheral vascular disease, intermittent claudication, hyperlipidemia, and osteoarthritis. She has a stress test scheduled for tomorrow actually for followup of her coronary artery disease. HEALTH MAINTENANCE: Last tetanus shot in 2002, pneumococcal PCV13 in 2015, flu shot in 2016, Pneumovax 23 in 2003, shingles vaccine in 2008. ALLERGIES: STATIN intolerance, SINGULAIR itching. MEDICATIONS: Reviewed and verified with the patient and corrected. REVIEW OF SYSTEMS: As per HPI. SOCIAL HISTORY: The patient quit smoking 3 years ago. Previous to that, she smoked 1 pack per day since age 22. No alcohol. REVIEW OF SYSTEMS: Denies fever, chills, or sputum production. Positive shortness of breath. Positive intermittent chest pain. Denies any bladder or bowel issues. OBJECTIVE: VITAL SIGNS: Blood pressure 140/70, temperature 98, pulse 81, respirations 20, pulse ox 96% on 2 liters, height 67 inches, weight 160 pounds. GENERAL: A 81-year-old mildly dyspneic with prolonged conversation. HEENT: Her ears were normal. Eyes were clear. Nose was patent. Throat with some postnasal drip. NECK: Supple, without adenopathy. LUNGS: With coarse breath sounds and expiratory wheezes. CARDIOVASCULAR: Regular rhythm and rate, 2/6 systolic murmur. ABDOMEN: Soft, nontender. EXTREMITIES: With trace edema. Lower extremity ultrasound negative. IMAGING: CT of the chest shows no pulmonary emphysema, 1.8 cm right and 1.7 cm left ground-glass opacities similar to previous study. She has cholelithiasis and nephrolithiasis as well. LABORATORY DATA: White count was 14.0, 12.8 this morning. Chemistry: Creatinine slightly elevated at 1.1. Urine is clear. D-dimer was 0.91. ABG shows mild hypercapnic hypoxemic respiratory failure. ASSESSMENT: 1. Hypercapnic hypoxemic respiratory failure. 2. Acute exacerbation of chronic obstructive pulmonary disease. 3. Hypertension. 4. Hypothyroidism. 5. History of coronary artery disease with stents. PLAN: IV steroids, breathing treatments, oxygen. We will schedule her stress test tomorrow if she can tolerate it and we will continue to support. SVETLANA REDDY DO DR: ADAMA/victorino JOB#: [id number] / [id number]
[2017-06-13] MEDS: CHOLECALCIFEROL (VITAMIN D3) 1,000 UNIT TABLET PO SCH (14:09)
[2017-06-13] MEDS: GLUCOSAMINE/CHOND 500/400MG CAPSULE PO SCH (14:09)
[2017-06-13] MEDS: LACTOBACILLUS RHAMNOSUS GG 1 CAPSULE. PO SCH ×2 (14:09→20:15)
[2017-06-13] MEDS: ASCORBIC ACID 500 MG TABLET PO SCH (14:10)
[2017-06-13] MEDS: PARoxetine 20 MG TABLET PO SCH (14:10)
[2017-06-13] MEDS: AZITHROMYCIN 250 MG TABLET. PO SCH (14:10)
[2017-06-13] MEDS: MULTIVITAMIN with MINERAL TABLET. PO SCH (14:10)
[2017-06-13] MEDS: LEVOTHYROXINE 75 MCG TABLET PO SCH (14:11)
[2017-06-13] MEDS: CLOPIDOGREL BISULFATE 75 MG TABLET PO SCH (14:11)
[2017-06-13] MEDS: LOSARTAN 50 MG TABLET. PO SCH (14:12)
[2017-06-13 15:00] VITALS: BP 145/78
[2017-06-13 19:57] VITALS: BP 185/71
[2017-06-13] MEDS ORDERED: cefTRIAXone IV Push 1 GM VIAL. IVP SCH (20:00)
[2017-06-13] MEDS: METOPROLOL TART IMMED RELEASE 25 MG TABLET PO SCH (20:16)
[2017-06-13 22:56] VITALS: BP 143/72
[2017-06-14 05:11] VITALS: BP 150/92
[2017-06-14] MEDS: methylPREDNISolone SOD SUCC PF 125 MG/2 ML VIAL. IV SCH (05:14)
[2017-06-14] MEDS: LEVOTHYROXINE 75 MCG TABLET PO SCH (05:14)
[2017-06-14] MEDS: IPRATRPIUM/ALBUTEROL 0.5/2.5MG 3 ML NEBU. NEB SCH ×3 (06:06→15:33)
[2017-06-14 07:16] LABS: BASO % 0 % (0-3); EOS % 0 % (0-3); HEMATOCRIT 40.4 % (36.0-47.0); HEMOGLOBIN 13.1 g/dL (12.0-15.5); LYMPH % 9 % (24-48); MEAN CORPUSCULAR HEMOGLOBIN 30 pg (25-35); MEAN CORPUSCULAR HGB CONC 32 g/dL (31-37); MEAN CORPUSCULAR VOLUME 92 fL (79-100); MONO # 1.2 x10^3/uL (0.0-1.1); MONO % 6 % (0-9); NEUT # 18.3 x10^3uL (1.8-7.7); NEUT % 85 % (31-73); PLATELET COUNT 302 x10^3/uL (140-400); RED BLOOD COUNT 4.42 x10^6/uL (3.50-5.40); WHITE BLOOD COUNT 21.6 x10^3/uL (4.0-11.0)
[2017-06-14 07:24] LABS: ALBUMIN 3.1 g/dL (3.4-5.0); CALCIUM 9.4 mg/dL (8.5-10.1); GFR 53.5; MAGNESIUM 1.9 mg/dL (1.8-2.4); POTASSIUM 4.1 mmol/L (3.5-5.1); TOTAL BILIRUBIN 0.2 mg/dL (0.2-1.0); TOTAL PROTEIN 6.2 g/dL (6.4-8.2)
[2017-06-14] MEDS ORDERED: REGADENOSON 0.4 MG/5 ML DISP.SYRIN. IV ONE (08:30)
[2017-06-14] MEDS ORDERED: ENOXAPARIN 30 MG/0.3 ML DISP.SYRIN. SQ SCH (09:00)
[2017-06-14 10:20] VITALS: BP 161/78
[2017-06-14 11:37] LABS: % BANDS 3 % (0-9); % LYMPHS 12 % (24-48); % MONOS 5 % (0-10); % SEGS 80 % (35-66); PLATELET CLUMP PRESENT; PLT ESTIMATE ADEQUATE (ADEQUATE)
--- NOTE | 2017-06-14 12:01 | PDOC2 ---
CONSULT Date of Admission DATE: 06/14/17 TIME: :29 Reason for Consult: CAD Problem List Problems Medical Problems: (1) Respiratory failure Status: Acute History of Present Illness Ms Stockton is a 81-year-old female with a history of coronary artery disease, s/ p PCI stents with NSTEMI in Nov, PAD, hypertension, hyperlipidemia and COPD who was scheduled for an outpatient stress test today to evaluate for progression of coronary disease. She presented to her PCP office on 06/06 with complaints of increasing dyspnea and was prescribed azithromycin. She apparently became progressively more dyspneic and her Sao2 levels were low at home so she presented to the ED, she was admitted for evaluation and management of her copd exacerbation and consult was called for coronary artery disease and the scheduled stress test. She is feeling better today with improved shortness of breath. She is currently free of chest pain though with her prior MIs she did not have typical angina. She denies palpitations, lightheadedness or syncope. Past Medical History Cardiovascular: CAD, HTN, [place], Hyperlipidemia, Other (carotid artery disease) Pulmonary: COPD Hepatobiliary: Cholelithiasis Psych: Anxiety Musculoskeletal: Osteoarthritis Rheumatologic: No pertinent hx Infectious disease: No pertinent hx ENT: No pertinent hx Renal/: No pertinent hx Endocrine: Hypothyroidism, Osteopenia Dermatology: No pertinent hx ECHOCARDIOGRAM ECHOCARDIOGRAM 03/22/17 Left ventricle systolic function is normal. The Ejection Fraction is 55-60%. Trace mitral regurgitation. Trace tricuspid regurgitation. The PA pressure was estimated at 21 mmHg. There is no evidence of significant pericardial effusion. Echo DATE: 05/28/15 1358 Severe hypokinesis of mid to distal segments globally and normal function of basal segments of myocardium, pattern suggestive of Takotsubo's cardiomyopathy. The Ejection Fraction is estimated at 25%. Transmitral Doppler flow pattern is Grade I-abnormal relaxation pattern. Trace mitral valve regurgitation. Trace tricuspid regurgitation. The PA pressure was estimated at 49 mmHg. There is no evidence of significant pericardial effusion. HEART CATH 03/22/17 FINDINGS 1. Hemodynamics: Left ventricular end-diastolic pressure of 19 mmHg. No pullback gradient across the aortic valve. 2. Coronary angiography: a. The left main coronary artery arose from the left sinus of Valsalva, gave rise to the left anterior descending and left circumflex arteries and showed 20 % proximal segment stenosis. b. The left anterior descending artery showed widely patent stent in the midsegment. c. The left circumflex artery showed widely patent stent in the midsegment. d. The right coronary artery was a large and dominant vessel arising from the right sinus of Valsalva that showed widely patent stent in the mid to distal segment. Conclusion No significant coronary artery disease with widely patent previously placed stents in the left anterior descending, left circumflex and right coronary arteries. Recommendations Optimization of medical therapy and cardiovascular risk factor reduction for coronary artery disease. Check 2-D echo to assess LV function in lieu of her history of Takotsubo's cardiomyopathy. Cardiac cath DATE: 01/17/15819 Conclusion Successful multivessel PCI/drug eluting stents placement to the right coronary artery, posterior descending branch, left circumflex artery and the left anterior descending artery. Recommendations 1. ASA 325 mg daily 2. Effient 10 mg daily for preferably one year 3. Cardiovascular risk factor modification including smoking cessation Past Surgical History PCI/ML to RCA, LCx, and LAD; bunionectomy; back surgery Family History noncontributory to CV Social History Smoke: Quit ALCOHOL: none Drugs: None Lives: with Family Current Medications Current Medications Aspirin (Children'S Aspirin) 324 mg 1X ONCE PO Last administered on 06/12/17at 19:57; Start 06/12/17 at 19:30; Stop 06/12/17 at 19:31; Status DC Albuterol/ Ipratropium (Duoneb) 3 ml 1X ONCE NEB Last administered on at 19:45; Start 06/12/17 at 19:30; Stop 06/12/17 at 19:31; Status DC Methylprednisolone Sodium Succinate (SOLU-Medrol 125MG VIAL) 125 mg 1X ONCE IV Last administered on 06/12/17at 19:59; Start 06/12/17 at 19:30; Stop 06/12/17 at 19:31; Status DC Ceftriaxone Sodium 1 gm/ Sodium Chloride 50 ml @ 100 mls/hr 1X ONCE IV ; Start 06/12/17 at 19:15; Stop 06/12/17 at 19:44; Status UNV Ceftriaxone Sodium (Rocephin) 1 gm 1X ONCE IVP Last administered on 06/12/17at 20:36; Start 06/12/17 at 19:45; Stop 06/12/17 at 19:46; Status DC Iohexol (Omnipaque 300 Mg/ml) 75 ml 1X ONCE IV Last administered on 06/12/17at 20:52; Start 06/12/17 at 20:45; Stop 06/12/17 at 20:46; Status DC Enoxaparin Sodium (Lovenox 80mg Syringe) 80 mg 1X ONCE SQ Last administered on 06/12/17at 23:27; Start 06/12/17 at 22:30; Stop 06/12/17 at 22:31; Status DC Azithromycin (Zithromax) 500 mg 1X ONCE PO Last administered on 06/12/17at 23: 30; Start 06/12/17 at 22:45; Stop 06/12/17 at 22:46; Status DC Ondansetron HCl (Zofran) 4 mg PRN Q4HRS PRN IV NAUSEA/VOMITING Last administered on 06/13/17at 14:09; Start 06/12/17 at 22:30; Stop 06/13/17 at 22:29 ; Status DC Enoxaparin Sodium (Lovenox 80mg Syringe) 70 mg BID SQ ; Start 06/13/17 at 09:00 ; Stop 06/13/17 at 09:59; Status DC Methylprednisolone Sodium Succinate (SOLU-Medrol 125MG VIAL) 125 mg DAILY06 IV Last administered on 06/14/17at 05:14; Start 06/13/17 at 06:00 Ceftriaxone Sodium 1 gm/ Sodium Chloride 50 ml @ 100 mls/hr 1X ONCE IV ; Start 06/12/17 at 22:30; Stop 06/12/17 at 22:59; Status UNV Azithromycin (Zithromax) 250 mg DAILY PO Last administered on 06/13/17at 14:10; Start 06/13/17 at 09:00 Albuterol/ Ipratropium (Duoneb) 3 ml RTQID NEB Last administered on 06/13/17at 09:58; Start 06/13/17 at 08:00; Stop 06/13/17 at 12:42; Status DC Ceftriaxone Sodium (Rocephin) 1 gm Q24H IVP Last administered on 06/13/17at 20: 16; Start 06/13/17 at 20:00 Lactobacillus Rhamnosus (Culturelle) 1 cap BID PO Last administered on at 20:15; Start 06/13/17 at 09:00 Albuterol/ Ipratropium (Duoneb) 3 ml 1X ONCE NEB Last administered on at 23:15; Start 06/12/17 at 23:15; Stop 06/12/17 at 23:16; Status DC Albuterol/ Ipratropium (Duoneb) 3 ml STK-MED ONCE .ROUTE ; Start 06/13/17 at 05: 18; Stop 06/13/17 at 05:19; Status DC Enoxaparin Sodium (Lovenox) 30 mg DAILY SQ ; Start 06/14/17 at 09:00; Stop 06/14 at 11:23; Status DC Vitamin D (Vitamin D3) 1,000 unit DAILY PO Last administered on 06/13/17at 14:09 ; Start 06/13/17 at 13:00 Clopidogrel Bisulfate (Plavix) 75 mg DAILY PO Last administered on 06/13/17at 14 :11; Start 06/13/17 at 13:00 Albuterol/ Ipratropium (Duoneb) 3 ml QID NEB Last administered on 06/14/17at 06: 06; Start 06/13/17 at 13:00 Levothyroxine Sodium (Synthroid) 75 mcg DAILY07 PO Last administered on at 05:14; Start 06/13/17 at 13:00 Metoprolol Tartrate (Lopressor) 25 mg BID PO Last administered on 06/13/17at 20: 16; Start 06/13/17 at 21:00 Paroxetine HCl (Paxil) 20 mg DAILY PO Last administered on 06/13/17at 14:10; Start 06/13/17 at 13:00 Ascorbic Acid (Vitamin C) 500 mg DAILY PO Last administered on 06/13/17at 14:10 ; Start 06/13/17 at 13:00 Glucosamine/ Chondroitin (Glucosamine-Chondroitin 500/400mg) 1 cap DAILY PO Last administered on 06/13/17at 14:09; Start 06/13/17 at 13:00 Losartan Potassium (Cozaar) 100 mg DAILY PO Last administered on 06/13/17at 14: 12; Start 06/13/17 at 13:00 Multivitamins/ Calcium (Thera-M Plus) 1 tab DAILY PO Last administered on at 14:10; Start 06/13/17 at 13:00 Calcium Carbonate/ Glycine (Tums) 500 mg PRN AFTMEALHC PRN PO INDIGESTION Last administered on 06/13/17at 14:09; Start 06/13/17 at 13:45 Regadenoson (Lexiscan) 0.4 mg 1X ONCE IV ; Start 06/14/17 at 08:30; Stop at 08:31; Status DC Enoxaparin Sodium (Lovenox) 40 mg DAILY SQ ; Start 06/15/17 at 09:00 Active Scripts Active Duoneb 0.5-3(2.5) Mg/3 Ml (Albuterol/Ipratropium) 3 Ml Ampul.neb 3 Ml NEB QID 7 Days Reported Glucosamine Chondroitin Tab (Gluc Simon/Chondro Simon A/Vit C/Mn) 1 Each Tablet 1 Each PO DAILY Multivitamins (Multivitamin) 1 Each Tablet 1 Tab PO DAILY Vitamin D3 (Cholecalciferol (Vitamin D3)) 1,000 Unit Tablet 1 Tab PO DAILY Jovita-C 500 Mg Tablet (Ascorbate Calcium/Bioflavonoid) 1 Each Tablet 1 Each PO DAILY Losartan Potassium 100 Mg Tablet 100 Mg PO DAILY Metoprolol Tartrate 25 Mg Tablet 25 Mg PO BID Paroxetine Hcl 20 Mg Tablet 20 Mg PO DAILY Clopidogrel (Clopidogrel Bisulfate) 75 Mg Tablet 75 Mg PO DAILY Levothyroxine Sodium 75 Mcg Tablet 75 Mcg PO DAILY07 Allergies: Coded Allergies: Rndclrz-Jap-Zrk Reductase Inhibitor (Verified Allergy, Intermediate, 03/22) Review of System as per HPI General: Alert, Oriented X3, Cooperative, No acute distress HEENT: Atraumatic, EOMI Lungs: Other (decreased bases) Heart: Regular rate, Normal S1, Normal S2 Abdomen: Normal bowel sounds, Soft Extremities: No cyanosis, No edema Neuro: Normal speech, Strength at 5/5 X4 ext Psych/Mental Status: Mental status NL, Mood NL VITALS Vital Signs Date Time Temp Pulse Resp B/P (MAP) Pulse Ox O2 Delivery O2 Flow Rate FiO2 06/14/17 10:20 97.7 84 20 161/78 (105) 94 Room Air 06/14/17 05:11 2.0 Labs Laboratory Tests Test 06/12/17 19:18 06/12/17 19:25 06/12/17 19:35 06/13/17 06:25 Influenza Type A (Rapid) Negative (NEGATIVE) Influenza Type B (Rapid) Negative (NEGATIVE) Group A Streptococcus Rapid Negative (NEGATIVE) White Blood Count 14.0 x10^3/uL (4.0-11.0) 12.8 x10^3/uL (4.0-11.0) Red Blood Count 4.91 x10^6/uL (3.50-5.40) 4.44 x10^6/uL (3.50-5.40) Hemoglobin 14.8 g/dL (12.0-15.5) 13.4 g/dL (12.0-15.5) Hematocrit 44.7 % (36.0-47.0) 40.6 % (36.0-47.0) Mean Corpuscular Volume 91 fL (79-100) 91 fL (79-100) Mean Corpuscular Hemoglobin 30 pg (25-35) 30 pg (25-35) Mean Corpuscular Hemoglobin Concent 33 g/dL (31-37) 33 g/dL (31-37) Red Cell Distribution Width 13.8 % (11.5-14.5) 14.0 % (11.5-14.5) Platelet Count 335 x10^3/uL (140-400) 296 x10^3/uL (140-400) Neutrophils (%) (Auto) 60 % (31-73) 87 % (31-73) Lymphocytes (%) (Auto) 26 % (24-48) 12 % (24-48) Monocytes (%) (Auto) 10 % (0-9) 1 % (0-9) Eosinophils (%) (Auto) 4 % (0-3) 0 % (0-3) Basophils (%) (Auto) 1 % (0-3) 0 % (0-3) Neutrophils # (Auto) 8.3 x10^3uL (1.8-7.7) 11.2 x10^3uL (1.8-7.7) Lymphocytes # (Auto) 3.7 x10^3/uL (1.0-4.8) 1.5 x10^3/uL (1.0-4.8) Monocytes # (Auto) 1.4 x10^3/uL (0.0-1.1) 0.2 x10^3/uL (0.0-1.1) Eosinophils # (Auto) 0.5 x10^3/uL (0.0-0.7) 0.0 x10^3/uL (0.0-0.7) Basophils # (Auto) 0.1 x10^3/uL (0.0-0.2) 0.0 x10^3/uL (0.0-0.2) Segmented Neutrophils % 54 % (35-66) Band Neutrophils % 4 % (0-9) Lymphocytes % 31 % (24-48) Monocytes % 10 % (0-10) Eosinophils % 1 % (0-5) Platelet Estimate Adequate (ADEQUATE) Prothrombin Time < 9.3 SEC (9.4-11.4) Prothromb Time International Ratio 0.9 (0.9-1.1) Activated Partial Thromboplast Time 23 SEC (23-33) D-Dimer (Lindsey) 0.91 mg/L (0.00-0.50) Urine Collection Type Unknown Urine Color Yellow Urine Clarity Clear Urine pH 7.0 Urine Specific Melrude 1.010 Urine Protein Neg (NEG-TRACE) Urine Glucose (UA) Neg mg/dL (NEG) Urine Ketones (Stick) Neg mg/dL (NEG) Urine Blood Neg (NEG) Urine Nitrite Neg (NEG) Urine Bilirubin Neg (NEG) Urine Urobilinogen Dipstick 0.2 mg/dL (0.2 mg/dL) Urine Leukocyte Esterase Neg (NEG) Urine RBC 0 /HPF (0-2) Urine WBC Occ /HPF (0-4) Urine Squamous Epithelial Cells Occ /LPF Urine Bacteria 0 /HPF (0-FEW) Sodium Level 139 mmol/L (136-145) 137 mmol/L (136-145) Potassium Level 5.0 mmol/L (3.5-5.1) 3.9 mmol/L (3.5-5.1) Chloride Level 99 mmol/L (98-107) 100 mmol/L (98-107) Carbon Dioxide Level 34 mmol/L (21-32) 28 mmol/L (21-32) Anion Gap 6 (6-14) 9 (6-14) Blood Urea Nitrogen 11 mg/dL (7-20) 15 mg/dL (7-20) Creatinine 0.8 mg/dL (0.6-1.0) 1.1 mg/dL (0.6-1.0) Estimated GFR (Cockcroft-Gault) 69.2 47.9 Glucose Level 91 mg/dL (70-99) 192 mg/dL (70-99) Lactic Acid Level 1.8 mmol/L (0.4-2.0) Calcium Level 9.3 mg/dL (8.5-10.1) 9.4 mg/dL (8.5-10.1) Magnesium Level 2.0 mg/dL (1.8-2.4) Total Bilirubin 0.4 mg/dL (0.2-1.0) Direct Bilirubin < 0.1 mg/dL (0.0-0.2) Aspartate Amino Transf (AST/SGOT) 38 U/L (15-37) Alanine Aminotransferase (ALT/SGPT) 31 U/L (14-59) Alkaline Phosphatase 67 U/L (46-116) Creatine Kinase 99 U/L (26-192) Creatine Kinase MB (Mass) 3.1 ng/mL (0.0-3.6) Creatine Kinase MB Relative Index 3.1 % (0-4) Troponin I Quantitative < 0.017 ng/mL (0-0.055) CW-Slk-B-Type Natriuretic Peptide 393 pg/mL (0-449) Total Protein 7.2 g/dL (6.4-8.2) Albumin 3.5 g/dL (3.4-5.0) Lipase 231 U/L (73-393) Thyroid Stimulating Hormone (TSH) 1.380 uIU/mL (0.358-3.740) Blood Gas pH 7.42 (7.35-7.45) Blood Gas PCO2 46 mmHg (35-45) Blood Gas PO2 62 mmHg (71-100) Blood Gas HCO3 30 mmol/L (22-26) Arterial Bld O2 Saturation (Calc) 91 % (92-99) FiO2 21 % Test 06/14/17 06:45 White Blood Count 21.6 x10^3/uL (4.0-11.0) Red Blood Count 4.42 x10^6/uL (3.50-5.40) Hemoglobin 13.1 g/dL (12.0-15.5) Hematocrit 40.4 % (36.0-47.0) Mean Corpuscular Volume 92 fL (79-100) Mean Corpuscular Hemoglobin 30 pg (25-35) Mean Corpuscular Hemoglobin Concent 32 g/dL (31-37) Red Cell Distribution Width 14.0 % (11.5-14.5) Platelet Count 302 x10^3/uL (140-400) Neutrophils (%) (Auto) 85 % (31-73) Lymphocytes (%) (Auto) 9 % (24-48) Monocytes (%) (Auto) 6 % (0-9) Eosinophils (%) (Auto) 0 % (0-3) Basophils (%) (Auto) 0 % (0-3) Neutrophils # (Auto) 18.3 x10^3uL (1.8-7.7) Lymphocytes # (Auto) 2.0 x10^3/uL (1.0-4.8) Monocytes # (Auto) 1.2 x10^3/uL (0.0-1.1) Eosinophils # (Auto) 0.0 x10^3/uL (0.0-0.7) Basophils # (Auto) 0.0 x10^3/uL (0.0-0.2) Sodium Level 141 mmol/L (136-145) Potassium Level 4.1 mmol/L (3.5-5.1) Chloride Level 104 mmol/L (98-107) Carbon Dioxide Level 31 mmol/L (21-32) Anion Gap 6 (6-14) Blood Urea Nitrogen 16 mg/dL (7-20) Creatinine 1.0 mg/dL (0.6-1.0) Estimated GFR (Cockcroft-Gault) 53.5 BUN/Creatinine Ratio 16 (6-20) Glucose Level 113 mg/dL (70-99) Calcium Level 9.4 mg/dL (8.5-10.1) Magnesium Level 1.9 mg/dL (1.8-2.4) Total Bilirubin 0.2 mg/dL (0.2-1.0) Aspartate Amino Transf (AST/SGOT) 22 U/L (15-37) Alanine Aminotransferase (ALT/SGPT) 25 U/L (14-59) Alkaline Phosphatase 53 U/L (46-116) Total Protein 6.2 g/dL (6.4-8.2) Albumin 3.1 g/dL (3.4-5.0) Albumin/Globulin Ratio 1.0 (1.0-1.7) Images CXR - no acute abnormality CTA - IMPRESSION: 1. No evidence of pulmonary embolism. 2. Pulmonary emphysema. 3. 1.8 cm right and 1.7 cm left upper lobe groundglass opacities. These are similar compared to the prior study. These may be postinflammatory or postinfectious. However, continued CT follow-up is recommended to exclude a neoplasm such as bronchoalveolar cell carcinoma. 4. Cholelithiasis and left nephrolithiasis. LEUS negative for DVT EKG - sinus rhythm, leftward axis, no acute changes Assessment/Plan 1. CAD with history of multivessel PCI/Stents and recent NSTEMI 2. Hx Takotsubo cardiomyopathy - normalized EF. 3. COPD exacerbation - per PCP 4. HTN 5. HLD - intolerant to statins /myalgia 6. severe PAD MPI today as scheduled with outpatient follow up. Problems: KD VILLALOBOS APRN Jun 14, 2017 12:01
[2017-06-14] MEDS: LACTOBACILLUS RHAMNOSUS GG 1 CAPSULE. PO SCH (13:08)
[2017-06-14] MEDS: ASCORBIC ACID 500 MG TABLET PO SCH (13:08)
[2017-06-14] MEDS: MULTIVITAMIN with MINERAL TABLET. PO SCH (13:08)
[2017-06-14] MEDS: CLOPIDOGREL BISULFATE 75 MG TABLET PO SCH (13:09)
[2017-06-14] MEDS: PARoxetine 20 MG TABLET PO SCH (13:09)
[2017-06-14] MEDS: CHOLECALCIFEROL (VITAMIN D3) 1,000 UNIT TABLET PO SCH (13:09)
[2017-06-14] MEDS: LOSARTAN 50 MG TABLET. PO SCH (13:10)
[2017-06-14] MEDS: METOPROLOL TART IMMED RELEASE 25 MG TABLET PO SCH (13:10)
[2017-06-14] MEDS: GLUCOSAMINE/CHOND 500/400MG CAPSULE PO SCH (13:10)
[2017-06-14] MEDS: AZITHROMYCIN 250 MG TABLET. PO SCH (13:10)
[2017-06-14 14:38] VITALS: BP 159/75
[2017-06-14] MEDS ORDERED: PRED-220 PO (15:38)
--- NOTE | 2017-06-14 16:08 | RAD ---
MR#: [id number] Date of Study: 06/14/2017 Ordering Physician: SVETLANA REDDY, Referring Physician: KALLIE MCCAIN Tech: RT Mehrdad (R) (N) APPROVED REPORT Test Type: Pharmacological Stress Nurse/Tech: Lorrie Wheeler Test Indications: CP Cardiac History: CAD Sent 2014 Resting Heart Rate: 79 bpm Resting Blood Pressure: 125/59mmHg Pretest Chest Pain: None Pharm. Details Pharmacologic stress testing was performed using 0.4mg per 5ml of regadenoson given intravenously ove r 7-10 seconds. Stress Symptoms Dyspnea, no acute changes on EKG POST EXERCISE Reason for Termination: Infusion complete Max HR: 132 bpm Chest Pain: No. Arrhythmia: No. INTERPRETATION Stress EKG Conclusion: The resting EKG shows a sinus rhythm with mild nonspecific ST-T wave changes. The stress EKG shows no significant changes from baseline. No EKG evidence of stressed induced ischemia. Imaging Protocol IMAGE PROTOCOL: Rest Tc-99m/stress Tc-99m 1 day Rest: Stress: Viability: Radiopharm.Tc99m [id number] Sestamibi [id number] 33mCi Duration 20min. 15min. Img Date 06/14/2017 06/14/2017 Inj-Img [id number]. 45min. Rest Admin Site:IV - Right AntecubitalAdministrator: RT Mehrdad (R)(N) Stress Admin Site: IV - Right AntecubitalAdministrator: RT Mehrdad (R)(N) STRESS DATA End Diast. Vol.80.0mlAv. Heart Rate85.0bpm LVEDV index BSA2.0mlCardiac Output0.1L/min End Syst. Vol.9.0mlCO Index BSA6.0L/min LVESV index BSA0.0mlMyocardial Bvyu351.0g Eject. Gvmxullq40.0% Stress Rates Pk. Fill Rate3.77EDV/secLVtime Pk. Fill 111.07msec Pk. Empty Rate4.74ESV/secLVtime Pk. Atqke973.72msec 04/26 Pk. Fill2.01EDV/sec Stress Scores Regional WT0.00Summed WT1.00 Regional WM0.00Summed WM0.00 LV Perfusion The stress scans show no significant defects. The rest scans show no significant defects. Nuclear imaging shows no reversible ischemia or infarct. Wall Motion Left ventricular systolic function is normal with an ejection fraction of greater than 70%. LV Perf. Quant 17 Seg. SSS2.00 17 Seg. SRS0.00 17 Seg. SDS2.00 Stress Defect Extent (% LAD)0.00Rest Defect Extent (% LAD)0.00Rev. Defect Extent (% LAD)0.00 Stress Defect Extent (% LCX) 0.00Rest Defect Extent (% LCX)0.00Rev. Defect Extent (% LCX)0.00 Stress Defect Extent (% RCA)0.00Rest Defect Extent (% RCA)0.00Rev. Defect Extent (% RCA)0.00 Stress Defect Extent (% KENN)0.00Rest Defect Extent (% KENN)0.00Rev. Defect Extent (% KENN)0.00 Conclusion 1. No EKG evidence of stressed induced ischemia. 2. Nuclear imaging shows no reversible ischemia or infarct. 3. Normal left ventricular systolic function with an ejection fraction of greater than 70%. 4. Low risk Lexiscan nuclear stress test. Signed by : Abdiel Mosher MD Electronically Approved : 06/14/2017 16:07:57
[2017-06-15] MEDS ORDERED: ENOXAPARIN 40 MG/0.4 ML DISP.SYRIN. SQ SCH (09:00)
== END 2017-06-14 18:46 | disposition home or self-care (01) | DRG 189 ==
LOC: ER 18:47 → 1 SOUTH 21:30
PROVIDERS: ADMIT Family Medicine; ATTEND Family Medicine
DX: J96.01 Acute respiratory failure with hypoxia (principal); Z99.81 Dependence on supplemental oxygen; I51.81 Takotsubo syndrome; J44.1 Chronic obstructive pulmonary disease with (acute) exacerbation; J96.02 Acute respiratory failure with hypercapnia; E03.9 Hypothyroidism, unspecified; E78.5 Hyperlipidemia, unspecified; I10 Essential (primary) hypertension; I25.10 Atherosclerotic heart disease of native coronary artery without angina pectoris; F32.9 Major depressive disorder, single episode, unspecified; F41.9 Anxiety disorder, unspecified; D72.829 Elevated white blood cell count, unspecified; M19.90 Unspecified osteoarthritis, unspecified site; I25.2 Old myocardial infarction; I73.9 Peripheral vascular disease, unspecified; M85.80 Other specified disorders of bone density and structure, unspecified site; Z87.891 Personal history of nicotine dependence; Z95.5 Presence of coronary angioplasty implant and graft; Z88.8 Allergy status to other drugs, medicaments and biological substances; Z90.49 Acquired absence of other specified parts of digestive tract
CPT/HCPCS: 36415; 36600; 71046; 71275; 78452; 80048; 80053; 80076; 81001; 82553; 82803; 83605; 83690; 83735; 83880; 84443; 84484; 85007; 85025; 85379; 85610; 85730; 87040; 87070; 87804; 87880; 93005; 93970; 94640; 96372; 96374; 96375; 96376; A9500; G0238; J0456; J0696; J1650; J2405; J2785; J2930; J7620; Q9967; 99285-25

== ENCOUNTER → 2018-02-09 | Outpatient (CLI) | payer MEDICARE ==
[~2018-02-09] MED LIST changes: +ASCO1TAB2 PO; +CHOL10003 PO; +CLOP75TA PO; +GLUC1TAB33 PO; -IPRA3AMP NEB; +IPRA3AMP29 NEB; +LEVO75TA5 PO; +LOSA100T7 PO; +METO25TA4 PO; +MULT1TAB52 PO; +PARO20TA3 PO; +PRED-220 PO
--- NOTE | 2018-02-09 11:22 | RAD ---
CT of the chest compared to similar study dated June 12, 2017 for lung nodule. TECHNIQUE: Contiguous helical 1 mm axial images are obtained from the thoracic inlet to the base of the diaphragm. No IV contrast was administered. Sagittal and coronal reformations are evaluated. FINDINGS: There are changes of emphysema bilaterally. There is a 1.2 x 1.3 cm spiculated nodular abnormality in the left upper lobe posteriorly on axial image #102, which was previously seen to be an area of groundglass disease, but appears now more confluent. This could reflect a consolidative infectious or inflammatory process, however neoplasm should also be considered. The focal spiculated groundglass opacity in the right upper lung peripherally seen on axial image 138 is unchanged in size and appearance. There is a small 4 mm nodule adjacent to the major fissure on axial image 144 which is unchanged. There is new patchy peripheral airspace disease within left upper lobe, likely atelectasis. Apical pleural scarring on the right is unchanged. There is moderate diffuse atherosclerosis with severe multifocal coronary artery calcification. There is redemonstration of several small pretracheal and AP window lymph nodes which are stable, with no suspicious morphologic features. No suspicious hilar or axillary adenopathy. Small sliding-type hiatal hernia is present. Visualized upper abdominal organs are limited by lack of IV contrast, however no gross morphologic anomalies are seen. Previously noted cholelith is not included on the current scan. There is a mixed lytic and sclerotic expansile abnormality of the manubrium, with no corresponding abnormality of the remainder of the sternum. Findings are grossly stable when compared to CT scan dated June 162016, and may be posttraumatic or perhaps related to Paget's disease. IMPRESSION: 1. Emphysema. 2. Redemonstrated speculated nodular opacity in the left upper lobe, which is stable in size but appears more confluent than on the prior examination. Differential diagnostic considerations include persistent infection, inflammation, or developing atypical neoplasm. 2. Stable appearing spiculated groundglass nodular opacity in the right upper lobe peripherally, with a similar differential diagnosis. 3. Extensive coronary artery calcifications. 4. Sliding type hiatal hernia. 5. Expansile mixed lesion of the manubrium, stable since May 2016, and most likely benign. Possibilities include history of trauma or Paget's disease. More sinister etiologies are unlikely, but should be considered if the patient has new or progressive pain attributed to this region. RS Compliance Statement: One or more of the following individualized dose reduction techniques were utilized for this examination: 1. Automated exposure control 2. Adjustment of the mA and/or kV according to patient size 3. Use of iterative reconstruction technique Electronically signed by: Eric Gonsalves MD (02/09/2018 11:19 AM) [id number]
== END | disposition home or self-care (01) ==
LOC: CT 08:51
PROVIDERS: ATTEND Internal Medicine Pulmonary Disease
DX: J43.8 Other emphysema (principal); I25.10 Atherosclerotic heart disease of native coronary artery without angina pectoris; K44.9 Diaphragmatic hernia without obstruction or gangrene; I71.4 Abdominal aortic aneurysm, without rupture
CPT/HCPCS: 71250

== ENCOUNTER → 2018-07-06 | Outpatient (CLI) | payer MEDICARE ==
[~2018-07-06] MED LIST changes: +LOSA100T14 PO; -LOSA100T7 PO
--- NOTE | 2018-07-06 15:56 | RAD ---
CT of the chest without contrast compared to similar study dated February 09, 2018 for pulmonary nodule, COPD, former smoker. TECHNIQUE: Contiguous helical 1 mm axial images are obtained from the thoracic inlet to the base of diaphragm. Sagittal and coronal reformations are evaluated. FINDINGS: Emphysematous changes are again observed. The irregular nodular opacity in the left upper lung is once again noted and is stable in size and character from the prior study. It remains suspicious. Apical pleural thickening on the right is stable. The spiculated groundglass opacity in the right upper lobe is also redemonstrated and unchanged in character and extent from the prior examination, and also remain suspicious. Patchy scarring is seen throughout both lungs. No new lung nodules or masses are evident. Small mediastinal lymph nodes are stable. No suspicious mediastinal, hilar, or axillary lymphadenopathy is seen. Extensive coronary artery calcifications are evident. Evaluation of the upper abdominal organs is limited by lack of IV contrast. Nonobstructing left renal calculi are seen. Sliding-type hernia is evident. Expansile mixed lesion of the manubrium is redemonstrated and unchanged as well, consistent with benignity. IMPRESSION: 1. Stable irregular nodular opacity in the left upper lobe, with no interval growth. Overall appearance of this lesion remains suspicious however and continued surveillance is warranted. 2. Stable appearing spiculated groundglass nodule in the right upper lung. This also remains suspicious. 3. No new lung nodules or masses. 4. COPD. 5. Hiatal hernia. 6. Extensive coronary artery calcifications. 7. Stable benign appearing expansile mixed lesion of the manubrium. This may reflect prior trauma or Paget's disease. Electronically signed by: Eric Gonsalves MD (07/06/2018 3:53 PM) [facility]
== END | disposition home or self-care (01) ==
LOC: CT 15:10
PROVIDERS: ATTEND Internal Medicine Pulmonary Disease
DX: R91.1 Solitary pulmonary nodule (principal); R91.8 Other nonspecific abnormal finding of lung field; I25.10 Atherosclerotic heart disease of native coronary artery without angina pectoris; K44.9 Diaphragmatic hernia without obstruction or gangrene; N20.0 Calculus of kidney; J43.9 Emphysema, unspecified
CPT/HCPCS: 71250

== ENCOUNTER → 2018-07-17 | Outpatient (CLI) | payer MEDICARE ==
--- NOTE | 2018-07-17 14:55 | CARD ---
MR#: [id number] Date of Study: 07/17/2018 Ordering Physician: JACE FABIAN, Referring Physician: JACE FABIAN Tech: Kareen Wyman RDCS APPROVED REPORT EXAM: Two-dimensional and M-mode echocardiogram with Doppler and color Doppler. Other Information Quality : Good INDICATION Cardiac Disease: CAD 2D DIMENSIONS RVDd2.4 (2.9-3.5cm)Left Atrium(2D)2.8 (1.6-4.0cm) IVSd0.8 (0.7-1.1cm)Aortic Root(2D)2.5 (2.0-3.7cm) LVDd4.3 (3.9-5.9cm)LVOT Diameter2.0 (1.8-2.4cm) PWd0.8 (0.7-1.1cm)LVDs2.9 (2.5-4.0cm) FS (%) 31.8 %SV50.0 ml LVEF(%)60.1 (>50%) Aortic Valve AoV Peak Calvin.121.8cm/sAoV VTI26.7cm AO Peak GR.5.9mmHgLVOT Peak Calvin.91.8cm/s LVOT VTI 20.65cmAO Mean GR.3mmHg FRANCESCO (VMAX)2.27lz4WCN (VTI)2.43cm2 Mitral Valve MV E Qpomdefc00.0cm/sMV DECEL APHP251fv MV A Gfvnzshm345.7cm/sE/A Ratio0.9 Tricuspid Valve TR P. Defpyqan722ge/sRAP DYIHZAFN0mlHa TR Peak Gr.79krRaWLYT32qoUw Pulmonary Vein S1 Efaubrjo34.5cm/sD2 Kfqtqmlv36.6cm/s LEFT VENTRICLE The left ventricle is normal size. There is normal left ventricular wall thickness. The left ventricu lar systolic function is normal and the ejection fraction is within normal range. The Ejection Fracti on is 55-60%. There is normal LV segmental wall motion. Transmitral Doppler flow pattern is Grade I-a bnormal relaxation pattern. RIGHT VENTRICLE The right ventricle is normal size. The right ventricular systolic function is normal. ATRIA The left atrium size is normal. The right atrium size is normal. The interatrial septum is intact wit h no evidence for an atrial septal defect or patent foramen ovale as noted on 2-D or Doppler imaging. AORTIC VALVE The aortic valve is calcified but opens well. Doppler and Color Flow revealed no significant aortic r egurgitation. There is no significant aortic valvular stenosis. MITRAL VALVE The mitral valve is calcified but opens well. Posterior mitral annular calcification is mild. There i s no evidence of mitral valve prolapse. There is no mitral valve stenosis. Doppler and Color Flow rev ealed no mitral valve regurgitation noted. TRICUSPID VALVE The tricuspid valve is normal in structure and function. Doppler and Color Flow revealed trace tricus pid regurgitation. The PA pressure was estimated at 35 mmHg. There is no tricuspid valve stenosis. PULMONIC VALVE Doppler and Color Flow revealed trace to mild pulmonic valvular regurgitation. There is no pulmonic v alvular stenosis. GREAT VESSELS The aortic root is normal in size. The ascending aorta is not well seen. The IVC is normal in size an d collapses >50% with inspiration. PERICARDIAL EFFUSION There is no evidence of significant pericardial effusion. Critical Notification Critical Value: No <Conclusion> The left ventricular systolic function is normal and the ejection fraction is within normal range. Th e Ejection Fraction is 55-60%. There is normal LV segmental wall motion. Signed by : Max Rowan, Electronically Approved : 07/17/2018 14:54:49
== END | disposition home or self-care (01) ==
LOC: ECHO 13:57
PROVIDERS: ATTEND Internal Medicine Cardiovascular Disease
DX: I08.0 Rheumatic disorders of both mitral and aortic valves (principal); I25.10 Atherosclerotic heart disease of native coronary artery without angina pectoris; R00.8 Other abnormalities of heart beat
CPT/HCPCS: 93306

== ENCOUNTER → 2018-07-24 | Outpatient (CLI) | payer MEDICARE ==
--- NOTE | 2018-07-24 14:46 | RAD ---
EXAM: Dual energy x-ray absorptiometry (DEXA). HISTORY: Postmenopausal female presents for osteoporosis screening. COMPARISON: 01/03/2006. TECHNIQUE: Dual energy x-ray absorptiometry of the lumbar spine and bilateral hips was performed. Calculation of bone mineral density based on standard deviations above or below the expected young adult normal value (T-score) was completed. FINDINGS: The average bone mineral density in the 1st through 4th lumbar vertebrae is 1.348 g/cmxcm, corresponding with a T-score of 1.4. There has been a 1.9% increase in density of the lumbar spine compared to the prior study. The average total bone mineral density in the left hip is 0.757 g/cmxcm, corresponding with a T-score of -1.6. There has been a 0.1% increase in density of the left hip compared to the prior study. The average total bone mineral density in the right hip is 0.751 g/cmxcm, corresponding with a T-score of -1.7. There has been a 0.0% increase in density of the left hip compared to the prior study. IMPRESSION: 1. Osteopenia measured at the bilateral hips. 2. Normal bone mineral density measured at the lumbar spine. Note: Definitions established by the World Health Organization: 1. Normal: T-score is -1.0 or above. 2. Osteopenia: T-score is between -1.0 and -2.5 . 3. Osteoporosis: T-score is -2.5 or below. Electronically signed by: Lisa Vuong MD (07/24/2018 2:43 PM) [facility]
== END | disposition home or self-care (01) ==
LOC: DXRAD 13:41
PROVIDERS: ATTEND Family Medicine
DX: Z13.820 Encounter for screening for osteoporosis (principal); M85.88 Other specified disorders of bone density and structure, other site
CPT/HCPCS: 77080

== ENCOUNTER 2018-07-30 16:05 | Emergency (ER) | payer MEDICARE ==
[~2018-07-30] VITALS: Ht 167.6 cm; Wt 74.4 kg
[2018-07-30 16:26] VITALS: BP 147/68
--- NOTE | 2018-07-30 16:45 | PHYS DOC ---
Past History Past Medical History: COPD, Hypothyroid Past Surgical History: Tonsillectomy Alcohol Use: None Drug Use: None Adult General Chief Complaint Chief Complaint: HEAD INJURY/TRAUMA HPI HPI Patient is a 83-year-old female presents complaining of head laceration, right wrist bruising and left elbow bruising. Patient was going to sit in her car when she missed. She struck her head on the pavement. There was no syncopal episode nor loss of consciousness. Patient is on Plavix as well as aspirin. Last tetanus vaccination was more than 5 years ago. Increased pain with movement. No nausea or vomiting.[] Review of Systems Review of Systems Constitutional: Denies fever or chills [] Eyes: Denies change in visual acuity, redness, or eye pain [] HENT: Denies nasal congestion or sore throat [] Respiratory: Denies cough or shortness of breath [] Cardiovascular: No chest pain or palpitations[] GI: Denies abdominal pain, nausea, vomiting, bloody stools or diarrhea [] : Denies dysuria or hematuria [] Musculoskeletal: Denies back pain, see history of present illness[] Integument: Denies rash or skin lesions [] Neurologic: Denies headache, focal weakness or sensory changes [] Endocrine: Denies polyuria or polydipsia [] All other systems were reviewed and found to be within normal limits, except as documented in this note. Allergies Allergies Allergies Coded Allergies Type Severity Reaction Last Updated Verified Nxiicbx-Idb-Rug Reductase Inhibitor Allergy Intermediate 03/22/17 Yes Physical Exam Physical Exam Constitutional: Well developed, well nourished, no acute distress, non-toxic appearance. [] HENT: Normocephalic, injury to the occipital region. No overt laceration noted. Blood mattered in the hair., bilateral external ears normal, oropharynx moist, no oral exudates, nose normal. [] Eyes: PERRLA, EOMI, conjunctiva normal, no discharge. [] Neck: Normal range of motion, no tenderness, supple, no stridor. [] Cardiovascular:Heart rate regular rhythm, no murmur [] Lungs & Thorax: Bilateral breath sounds clear to auscultation [] Abdomen: Bowel sounds normal, soft, no tenderness, no masses, no pulsatile masses. [] Skin: Warm, dry, no erythema, no rash. [] Back: No tenderness, no CVA tenderness. [] Extremities: Tenderness and bruising of the right wrist, distal ulnar region. Also bruising noted at the proximal forearm of the left elbow, is distal neurovascularly intact from both of these injuries. No joint above and a joined below were evaluated around both of these injuries and both were normal. No cyanosis, no clubbing, ROM intact, no edema. [] Neurologic: Alert and oriented X 3, normal motor function, normal sensory function, no focal deficits noted. [] Psychologic: Affect normal, judgement normal, mood normal. [] Current Patient Data Vital Signs Vital Signs Date Time Temp Pulse Resp B/P (MAP) Pulse Ox O2 Delivery O2 Flow Rate FiO2 07/30/18 16:26 98.2 76 20 98 Room Air EKG EKG [] Radiology/Procedures Radiology/Procedures PROCEDURE: CT HEAD AND CERVICAL SPINE WO INDICATION: Fall with head injury, headache and neck pain, patient on Plavix COMPARISON: December 2014 TECHNIQUE: Axial CT images obtained through the head and cervical spine. One or more of the following individualized dose reduction techniques were utilized for this examination: 1. Automated exposure control; 2. Adjustment of the mA and/or kV according to patient size; 3. Use of iterative reconstruction technique. Right wrist and left elbow showed no acute fracture or dislocation FINDINGS: Head: Left posterior scalp cephalohematoma. Scattered regions of low density within the white matter. No midline shift. Suprasellar cistern is not effaced. No definite acute intracranial hemorrhage. Cervical spine: Grade 1 anterolisthesis of C3 on 4. Multilevel degenerative changes throughout the cervical spine with central canal and neural foraminal stenosis. Calcific atherosclerosis. Uncovertebral and facet hypertrophy as well as osteophyte formation at vertebral body endplates. No definite acute fracture. Emphysematous changes at lung apices. IMPRESSION: 1. Scalp hematoma without definite acute intracranial hemorrhage. 2. Scattered foci of low density within the white matter. Nonspecific but can be seen with chronic small vessel ischemic disease. 3. Degenerative changes of the cervical spine without a definite acute fracture.[] Course & Med Decision Making Course & Med Decision Making Pertinent Labs and Imaging studies reviewed. (See chart for details) ED course: Patient arrived, was placed in bed, and tolerated exam well. She was transported to and from radiology with any complications. After return of the imaging findings, these were discussed with the patient. Patient had her head abrasions addressed with skin glue. Patient did receive tetanus vaccination updating while in the emergency department. She voiced understanding of the issues. She was discharged in improved condition. Medical decision making: There is no evidence of a fracture or dislocation, no intracranial bleeding, no skull fracture, no open fracture, no cervical spine injury, no neurologic compromise. No evidence of this being a syncopal episode[] Dragon Disclaimer Dragon Disclaimer This electronic medical record was generated, in whole or in part, using a voice recognition dictation system. Departure Departure: Impression: Primary Impression: Closed head injury Additional Impressions: Scalp abrasion Right wrist injury Injury of left elbow Disposition: HOME, SELF-CARE Condition: IMPROVED Referrals: IAN ALVARADO MD (PCP) Follow-up in 2 days Patient Instructions: Abrasions, Elbow Contusion, Head Injury, Adult, Wrist Pain Additional Instructions: Follow-up with your regular doctor in 2 days. You may take Tylenol as directed on the package as needed for pain. Return to the ER if worsening pain or any other concerns. Laceration Repair Lac Repair Indication: Deep abrasions to scalp [] Procedure: The patient was placed in the appropriate position and the area was then cleansed. The abrasion was covered with skin glue. Total repaired wound length: Approximately 2 cm area Other Items: none The patient tolerated the procedure well, hemostasis was achieved. Complications: None. Problem Qualifiers Primary Impression: Closed head injury Encounter type: initial encounter Qualified Codes: S09.90XA - Unspecified injury of head, initial encounter Additional Impressions: Scalp abrasion Encounter type: initial encounter Qualified Codes: S00.01XA - Abrasion of scalp, initial encounter Right wrist injury Encounter type: initial encounter Qualified Codes: S69.91XA - Unspecified injury of right wrist, hand and finger(s), initial encounter Injury of left elbow Encounter type: initial encounter Qualified Codes: S59.902A - Unspecified injury of left elbow, initial encounter STEF OLIVARES DO Jul 30, 2018 16:45
[2018-07-30] MEDS ORDERED: DIPHTH,PERTUSS(ACELL),TET TOX 0.5 ML DISP.SYRIN. VAX IM ONE (17:00)
--- NOTE | 2018-07-30 17:33 | RAD ---
INDICATION: Fall with head injury, headache and neck pain, patient on Plavix COMPARISON: December 2014 TECHNIQUE: Axial CT images obtained through the head and cervical spine. One or more of the following individualized dose reduction techniques were utilized for this examination: 1. Automated exposure control; 2. Adjustment of the mA and/or kV according to patient size; 3. Use of iterative reconstruction technique. FINDINGS: Head: Left posterior scalp cephalohematoma. Scattered regions of low density within the white matter. No midline shift. Suprasellar cistern is not effaced. No definite acute intracranial hemorrhage. Cervical spine: Grade 1 anterolisthesis of C3 on 4. Multilevel degenerative changes throughout the cervical spine with central canal and neural foraminal stenosis. Calcific atherosclerosis. Uncovertebral and facet hypertrophy as well as osteophyte formation at vertebral body endplates. No definite acute fracture. Emphysematous changes at lung apices. IMPRESSION: 1. Scalp hematoma without definite acute intracranial hemorrhage. 2. Scattered foci of low density within the white matter. Nonspecific but can be seen with chronic small vessel ischemic disease. 3. Degenerative changes of the cervical spine without a definite acute fracture. Electronically signed by: Dilshad Ly MD (07/30/2018 5:30 PM) [facility]
[2018-07-30] MEDS ORDERED: NEOMY/BACITR/POLYMYXIN OINT PACKET. TP ONE (19:15)
--- NOTE | 2018-07-30 23:27 | RAD ---
ELBOW LEFT 3V, WRIST 3V RIGHT Clinical Indication: Fall with left elbow and right wrist pain and bruising Comparison: None. Findings: There is age indeterminant fracture at the mid waist of the scaphoid. There is minimal separation of fracture fragments. There is no dislocation. Carpal articulations are maintained. Chondrocalcinosis of the TFCC. Mild dorsal soft tissue swelling. No acute fracture or dislocation of the elbow. No joint effusion is seen. The mineralization is normal. No soft tissue swelling. No radiopaque foreign body. IMPRESSION: 1. Age-indeterminate nondisplaced fracture at the mid waist of the scaphoid. 2. No acute fracture or dislocation of the elbow. Electronically signed by: Manuelito Barnes MD (07/30/2018 11:24 PM) [facility]
--- NOTE | 2018-07-30 23:27 | RAD ---
ELBOW LEFT 3V, WRIST 3V RIGHT Clinical Indication: Fall with left elbow and right wrist pain and bruising Comparison: None. Findings: There is age indeterminant fracture at the mid waist of the scaphoid. There is minimal separation of fracture fragments. There is no dislocation. Carpal articulations are maintained. Chondrocalcinosis of the TFCC. Mild dorsal soft tissue swelling. No acute fracture or dislocation of the elbow. No joint effusion is seen. The mineralization is normal. No soft tissue swelling. No radiopaque foreign body. IMPRESSION: 1. Age-indeterminate nondisplaced fracture at the mid waist of the scaphoid. 2. No acute fracture or dislocation of the elbow. Electronically signed by: Manuelito Barnes MD (07/30/2018 11:24 PM) [facility]
== END 2018-07-30 19:15 | disposition home or self-care (01) ==
LOC: ER 16:05
DX: S00.03XA Contusion of scalp, initial encounter (principal); S60.211A Contusion of right wrist, initial encounter; S50.02XA Contusion of left elbow, initial encounter; J44.9 Chronic obstructive pulmonary disease, unspecified; E03.9 Hypothyroidism, unspecified; Z88.8 Allergy status to other drugs, medicaments and biological substances; W17.89XA Other fall from one level to another, initial encounter; Y93.89 Activity, other specified; Y92.89 Other specified places as the place of occurrence of the external cause; Y99.8 Other external cause status
CPT/HCPCS: 12001; 70450; 72125; 73080; 73110; 90471; 90715; 99284-25

== ENCOUNTER 2018-08-26 17:14 | Emergency (ER) | payer MEDICARE ==
[~2018-08-26] VITALS: Ht 167.6 cm; Wt 74.2 kg
--- NOTE | 2018-08-26 17:23 | PHYS DOC ---
Past History Past Medical History: COPD, Hypothyroid (PAWAN GRAYSON Jr., DO) Past Medical History: CAD, Other (MICHEAL MARTIN MD) Past Surgical History: Tonsillectomy (PAWAN GRAYSON Jr., DO) Alcohol Use: None Drug Use: None (PAWAN GRAYSON Jr., DO) Adult General Chief Complaint Chief Complaint: shortness of breath [facility] HPI Patient is an 83-year-old female who presents with complaint of shortness of breath that she states started this morning when she first woke up. She states that just a couple of hours ago symptoms have gotten significantly worse and she had to call 911. EMS reports that when they had arrived patient was in back room giving herself nebulizer treatment. Patient states that she is normally on 2 L of oxygen but states that she had to turn her oxygen up to 4 L today. She states the shortness of breath is worsened with exertion. She states the cough is intermittently productive of sputum but she is not seeing any additional sputum than usual. She reports subjective fever and chills. She denies any chest pain. (PAWAN GRAYSON Jr. DO) Review of Systems Review of Systems Constitutional: Positive subjective fever and chills [] Respiratory: Complains of cough and shortness of breath [] Cardiovascular: No additional information not addressed in HPI [] GI: Denies abdominal pain, nausea, vomiting or diarrhea [] Integument: Denies rash or skin lesions [] Neurologic: Denies headache, focal weakness or sensory changes [] All other systems were reviewed and found to be within normal limits, except as documented in this note. (PAWAN GRAYSON Jr. DO) Allergies Allergies Allergies Coded Allergies Type Severity Reaction Last Updated Verified Ignrzul-Poh-Amb Reductase Inhibitor Allergy Intermediate 03/22/17 Yes (PAWAN GRAYSON Jr., DO) Physical Exam Physical Exam Constitutional: Well developed, well nourished, no acute distress, non-toxic appearance. [] HENT: Normocephalic, atraumatic, bilateral external ears normal, oropharynx moist, no oral exudates, nose normal. [] Eyes: PERRLA, EOMI, conjunctiva normal, no discharge. [] Neck: Normal range of motion, no tenderness, supple, no stridor. [] Cardiovascular:Heart rate regular rhythm, no murmur [] Lungs & Thorax: Mildly diminished breath sounds are noted bilaterally with fine rhonchi in the lung bases to auscultation [] Abdomen: Bowel sounds normal, soft, no tenderness. [] Skin: Warm, dry, no erythema, no rash. [] Extremities: No tenderness, no cyanosis, no clubbing, ROM intact. [] Neurologic: Alert and oriented X 3, no focal deficits noted. [] (PAWAN GRAYSON Jr., DO) Physical Exam Re-exam- Shift change Moderated Distress Chest- PMI to Lt., occasional PVC per monitor, scattered wheezes. Abdomen- bowel sounds. Obese. Strategies ankle edema. My interpretation EKG shows a sinus rhythm at 76. Left axis deviation and a fascicular block. Does have 2 Abnormalities. Take Anterior Septal Region.- Abnormal EKG. My interpretation of chest x-ray shows chronic changes consistent with COPD/emphysema. Flattening of diaphragm. Pt. last stents Mid and LAD, Proximal LAD 2017 and 07-31. Discussed presentation, testing and treatment with Dr. Rodriguez Cardiology and Dr. Núñez. Pt.to be transferred to [facility] intensive care cardiac unit. (MICHEAL MARTIN MD) EKG EKG [] (PAWAN GRAYSON Jr., DO) Radiology/Procedures Radiology/Procedures [] (PAWAN GRAYSON Jr., DO) Course & Med Decision Making Course & Med Decision Making Pertinent Labs and Imaging studies reviewed. (See chart for details) Patient is been moved to room upon arrival was evaluated by your medical staff after which an IV was established and blood work drawn. A chest x-ray is been ordered along with breathing treatment. At this time, patient's workup is pending and patient is being signed out to the oncoming ER physician, Dr. Vazquez hendrickson, at 6:00 PM. (PAWAN GRAYSON Jr., DO) Course & Med Decision Making Impression: 1. Acute NV- Trop.[id number] (MICHEAL MARTIN MD) Dragon Disclaimer Dragon Disclaimer This electronic medical record was generated, in whole or in part, using a voice recognition dictation system. (PAWAN GRAYSON Jr., DO) Departure Departure: Referrals: IAN ALVARADO MD (PCP) Discharge Summary Visit Information Final Diagnosis Problems Medical Problems: (1) Myocardial infarct Status: Acute (MICHEAL MARTIN MD) Brief Hospital Course Allergies Allergies Coded Allergies Type Severity Reaction Last Updated Verified Joedprx-Vsc-Mzo Reductase Inhibitor Allergy Intermediate 03/22/17 Yes Vital Signs Vital Signs Date Time Temp Pulse Resp B/P (MAP) Pulse Ox O2 Delivery O2 Flow Rate FiO2 08/26/18 19:25 79 24 99/67 (78) 96 Nasal Cannula 3.5 08/26/18 17:14 98.0 Lab Results Laboratory Tests Test 08/26/18 17:15 08/26/18 17:24 White Blood Count 10.5 x10^3/uL (4.0-11.0) Red Blood Count 4.89 x10^6/uL (3.50-5.40) Hemoglobin 14.8 g/dL (12.0-15.5) Hematocrit 44.1 % (36.0-47.0) Mean Corpuscular Volume 90 fL (79-100) Mean Corpuscular Hemoglobin 30 pg (25-35) Mean Corpuscular Hemoglobin Concent 34 g/dL (31-37) Red Cell Distribution Width 13.4 % (11.5-14.5) Platelet Count 357 x10^3/uL (140-400) Neutrophils (%) (Auto) 57 % (31-73) Lymphocytes (%) (Auto) 30 % (24-48) Monocytes (%) (Auto) 8 % (0-9) Eosinophils (%) (Auto) 4 % (0-3) Basophils (%) (Auto) 1 % (0-3) Neutrophils # (Auto) 6.0 x10^3uL (1.8-7.7) Lymphocytes # (Auto) 3.2 x10^3/uL (1.0-4.8) Monocytes # (Auto) 0.8 x10^3/uL (0.0-1.1) Eosinophils # (Auto) 0.4 x10^3/uL (0.0-0.7) Basophils # (Auto) 0.1 x10^3/uL (0.0-0.2) Prothrombin Time 9.3 SEC (9.4-11.4) Prothromb Time International Ratio 0.9 (0.9-1.1) Activated Partial Thromboplast Time 22 SEC (23-33) Sodium Level 136 mmol/L (136-145) Potassium Level 4.0 mmol/L (3.5-5.1) Chloride Level 98 mmol/L (98-107) Carbon Dioxide Level 26 mmol/L (21-32) Anion Gap 12 (6-14) Blood Urea Nitrogen 13 mg/dL (7-20) Creatinine 0.9 mg/dL (0.6-1.0) Estimated GFR (Cockcroft-Gault) 60.1 BUN/Creatinine Ratio 14 (6-20) Glucose Level 93 mg/dL (70-99) Calcium Level 9.5 mg/dL (8.5-10.1) Total Bilirubin 0.3 mg/dL (0.2-1.0) Aspartate Amino Transf (AST/SGOT) 37 U/L (15-37) Alanine Aminotransferase (ALT/SGPT) 26 U/L (14-59) Alkaline Phosphatase 60 U/L (46-116) Troponin I Quantitative 8.598 ng/mL (0-0.055) SZ-Ahu-Y-Type Natriuretic Peptide 204 pg/mL (0-449) Total Protein 6.8 g/dL (6.4-8.2) Albumin 3.5 g/dL (3.4-5.0) Albumin/Globulin Ratio 1.1 (1.0-1.7) Influenza Type A (Rapid) Negative (NEGATIVE) Influenza Type B (Rapid) Negative (NEGATIVE) Brief Hospital Course Ms. Stockton is a 83 old female who presented with acute onset dyspnea, found to have elevated Trop. Transfer to and Dr. Feliciano Cardiology [facility] ICU. (MICHEAL MARTIN MD) Discharge Information Condition at Discharge: Improved Dischare Medications Current Medications Albuterol/ Ipratropium (Duoneb) 3 ml 1X ONCE NEB Last administered on 08/26/18at 18:39; Start 08/26/18 at 17:30; Stop 08/26/18 at 17:31; Status DC Methylprednisolone Sodium Succinate (SOLU-Medrol 125MG VIAL) 125 mg 1X ONCE IV ; Start 08/26/18 at 17:30; Stop 08/26/18 at 17:31; Status DC Aspirin (Chiquita Aspirin) 325 mg 1X ONCE PO Last administered on 08/26/18at 18:39; Start 08/26/18 at 18:30; Stop 08/26/18 at 18:34; Status DC Nitroglycerin (Nitro-Bid Oint) 1 inch 1X ONCE TP Last administered on 08/26/18at 18:40; Start 08/26/18 at 18:30; Stop 08/26/18 at 18:34; Status DC Heparin Sodium (Porcine) (Heparin Sodium) 4,000 unit 1X ONCE IV Last administered on 08/26/18at 18:49; Start 08/26/18 at 18:45; Stop 08/26/18 at 18:46; Status DC Sodium Chloride 1,000 ml @ 75 mls/hr 1X ONCE IV Last administered on 08/26/18at 18:45; Start 08/26/18 at 18:45; Stop 08/26/18 at 20:08; Status DC Heparin Sodium/ Dextrose 500 ml @ 0 mls/hr CONT PRN IV SEE I/O RECORD Last administered on 08/26/18at 19:34; Start 08/26/18 at 19:15; Stop 08/26/18 at 20:08; Status DC Info (Anti-Coagulation Monitoring By Pharmacy) 1 each PRN DAILY PRN MC SEE COMMENTS; Start 08/26/18 at 19:30; Stop 08/26/18 at 20:08; Status DC Active Scripts Active Prednisone 10 Mg Tablet 10 Mg PO DAILY 20 MG PO DAILY X 5 DAYS, 10 PO DAILY X5 DAYS THEN STOP Duoneb 0.5-3(2.5) Mg/3 Ml (Albuterol/Ipratropium) 3 Ml Ampul.neb 3 Ml NEB QID 7 Days Reported Glucosamine Chondroitin Tab (Gluc Simon/Chondro Simon A/Vit C/Mn) 1 Each Tablet 1 Each PO DAILY LAST DOSE GIVEN: DATE: TODAY TIME: AM NEXT DOSE DUE: DATE: TOMORROW TIME: AM Multivitamins (Multivitamin) 1 Each Tablet 1 Tab PO DAILY LAST DOSE GIVEN: DATE: TODAY TIME: AM NEXT DOSE DUE: DATE: TOMORROW TIME: AM Vitamin D3 (Cholecalciferol (Vitamin D3)) 1,000 Unit Tablet 1 Tab PO DAILY LAST DOSE GIVEN: DATE: TODAY TIME: AM NEXT DOSE DUE: DATE: TOMORROW TIME: AM Jovita-C 500 Mg Tablet (Ascorbate Calcium/Bioflavonoid) 1 Each Tablet 1 Each PO DAILY LAST DOSE GIVEN: DATE: TODAY TIME: AM NEXT DOSE DUE: DATE: TOMORROW TIME: AM Losartan Potassium 100 Mg Tablet 100 Mg PO DAILY LAST DOSE GIVEN: DATE: TODAY TIME: AM NEXT DOSE DUE: DATE: TOMORR TIME: AM Metoprolol Tartrate 25 Mg Tablet 25 Mg PO BID LAST DOSE GIVEN: DATE: TODAY TIME: AM NEXT DOSE DUE: DATE: TODAY TIME: PM Paroxetine Hcl 20 Mg Tablet 20 Mg PO DAILY LAST DOSE GIVEN: DATE: TIME: AM NEXT DOSE DUE: DATE: ORR TIME: AM Clopidogrel (Clopidogrel Bisulfate) 75 Mg Tablet 75 Mg PO DAILY LAST DOSE GIVEN: DATE: TIME: AM NEXT DOSE DUE: DATE: TOMORR TIME: AM Levothyroxine Sodium 75 Mcg Tablet 75 Mcg PO DAILY07 LAST DOSE GIVEN: DATE: TIME: AM NEXT DOSE DUE: DATE: TIME: BEFORE BREAKFAST (MICHEAL MARTIN MD) Dragon Disclaimer This chart was dictated in whole or in part using Voice Recognition software in a busy, high-work load, and often noisy Emergency Department environment. It may contain unintended and wholly unrecognized errors or omissions. (MICHEAL MARTIN MD) PAWAN GRAYSON Jr. DO August 26, 2018 17:23 MICHEAL MARTIN MD August 27, 2018 05:53
[2018-08-26] MEDS ORDERED: methylPREDNISolone SOD SUCC PF 125 MG/2 ML VIAL. IV ONE (17:30)
[2018-08-26] MEDS ORDERED: IPRATRPIUM/ALBUTEROL 0.5/2.5MG 3 ML NEBU. NEB ONE (17:30)
[2018-08-26 17:34] LABS: BASO # 0.1 x10^3/uL (0.0-0.2); BASO % 1 % (0-3); EOS # 0.4 x10^3/uL (0.0-0.7); EOS % 4 % (0-3); HEMATOCRIT 44.1 % (36.0-47.0); HEMOGLOBIN 14.8 g/dL (12.0-15.5); LYMPH # 3.2 x10^3/uL (1.0-4.8); LYMPH % 30 % (24-48); MEAN CORPUSCULAR HEMOGLOBIN 30 pg (25-35); MEAN CORPUSCULAR HGB CONC 34 g/dL (31-37); MEAN CORPUSCULAR VOLUME 90 fL (79-100); MONO # 0.8 x10^3/uL (0.0-1.1); MONO % 8 % (0-9); NEUT % 57 % (31-73); PLATELET COUNT 357 x10^3/uL (140-400); RED BLOOD COUNT 4.89 x10^6/uL (3.50-5.40); RED CELL DISTRIBUTION WIDTH 13.4 % (11.5-14.5); WHITE BLOOD COUNT 10.5 x10^3/uL (4.0-11.0)
[2018-08-26 17:58] LABS: ALBUMIN 3.5 g/dL (3.4-5.0); ALBUMIN/GLOBULIN RATIO 1.1 (1.0-1.7); CALCIUM 9.5 mg/dL (8.5-10.1); CREATININE 0.9 mg/dL (0.6-1.0); GFR 60.1; TOTAL BILIRUBIN 0.3 mg/dL (0.2-1.0); TOTAL PROTEIN 6.8 g/dL (6.4-8.2)
[2018-08-26 18:01] LABS: INFLUENZA A PATIENT NEGATIVE (NEGATIVE); INFLUENZA B PATIENT NEGATIVE (NEGATIVE)
[2018-08-26] MEDS ORDERED: NITROGLYCERIN OINT 1 GM PACKET. TP ONE (18:30)
[2018-08-26] MEDS ORDERED: ASPIRIN 325 MG TABLET PO ONE (18:30)
[2018-08-26] MEDS ORDERED: IV NORMAL SALINE 1,000ML 1,000 ML IV ONE (18:45)
[2018-08-26] MEDS ORDERED: HEPARIN for IV BOLUS 10,000 UNIT/10 ML VIAL. IV ONE (18:45)
[2018-08-26] MEDS ORDERED: HEPARIN 25,000UTS/500ML PREMIX 500 ML IV PRN (19:15)
[2018-08-26 19:25] VITALS: BP 99/67
[2018-08-26] MEDS ORDERED: ANTI-COAG MONITOR BY PHARMACY. MC PRN (19:30)
--- NOTE | 2018-08-27 08:34 | RAD ---
Chest radiograph 08/26/2018 5:45 PM INDICATION: Dyspnea COMPARISON: CT chest July 06, 2018, chest radiograph June 12, 2017 TECHNIQUE: Frontal and lateral views of the chest are provided. FINDINGS: The cardiomediastinal silhouette is within normal limits. There are no pleural effusions. There is no pulmonary vascular congestion. There is no pneumothorax. Chronic interstitial changes are present. There is flattening of the diaphragms which may be seen with air trapping. Mild pulmonary emphysematous changes are present. There is subsegmental atelectasis at the left lung base. No significant osseous abnormality is identified. IMPRESSION: COPD changes with subsegmental atelectasis at the left lung base. Electronically signed by: Ellen Tolbert MD (08/27/2018 8:31 AM) [email or web address]
== END 2018-08-26 19:45 | disposition short-term general hospital (02) ==
LOC: ER 17:14
DX: I21.9 Acute myocardial infarction, unspecified (principal); J44.9 Chronic obstructive pulmonary disease, unspecified; E03.9 Hypothyroidism, unspecified; I25.10 Atherosclerotic heart disease of native coronary artery without angina pectoris; Z88.8 Allergy status to other drugs, medicaments and biological substances
CPT/HCPCS: 36415; 71046; 80053; 83880; 84484; 85025; 85610; 85730; 87804; 96374; 96376; 99285; J1644; J7620; J7030

== ENCOUNTER → 2018-12-07 | Outpatient (CLI) | payer MEDICARE ==
--- NOTE | 2018-12-07 16:25 | RAD ---
CT scan of the chest without contrast 12/07/2018 CLINICAL HISTORY: History of lung nodule. TECHNIQUE: Unenhanced, contiguous, 0.625 mm axial sections were obtained through the chest and upper abdomen. 1 mm reconstructed axial images were obtained. One or more of the following individualized dose reduction techniques were utilized for this study: 1. Automated exposure control. 2. Adjustment of the mA and/or kV according to patient size. 3. Use of iterative reconstruction technique. FINDINGS: Comparison study is dated 07/06/2018. Atherosclerotic calcification of the thoracic aorta and its branches is seen. The thoracic aorta is minimally tortuous but tapers normally. The heart is normal in size. Scattered coronary artery calcifications are noted. Slightly prominent likely reactive mediastinal lymph nodes are seen, unchanged. There is a small sliding hiatal hernia. Moderate emphysematous changes are seen involving both lungs. Areas of apical pleural thickening and scarring are seen bilaterally, right greater than left. A 1.3 cm irregular oval-shaped opacity is seen involving the left upper lobe, unchanged. A 5 mm nodular opacity is seen anteriorly within the left upper lobe (image #82), unchanged. An irregular groundglass opacity is seen involving the right upper lobe which measures 2 cm in greatest diameter. It is unchanged. No new pulmonary nodule is seen. Areas of subsegmental atelectasis and/or scarring are seen involving the right middle lobe and lingula of the left upper lobe. No area of consolidation is noted. No pneumothorax or pleural effusion is seen. Images through the upper abdomen demonstrate atherosclerotic calcification of the abdominal aorta and its branches. The osseous structures are unchanged. IMPRESSION: Stable CT appearance of the nodular opacities involving both lungs as outlined above. No acute abnormality is seen. Electronically signed by: Viraj Padilla MD (12/07/2018 4:22 PM) [facility]
== END | disposition home or self-care (01) ==
LOC: CT 15:03
PROVIDERS: ATTEND Internal Medicine Pulmonary Disease
DX: J98.11 Atelectasis (principal); J43.9 Emphysema, unspecified; J98.4 Other disorders of lung; R91.8 Other nonspecific abnormal finding of lung field; I70.0 Atherosclerosis of aorta; I25.10 Atherosclerotic heart disease of native coronary artery without angina pectoris; K44.9 Diaphragmatic hernia without obstruction or gangrene; Z87.891 Personal history of nicotine dependence
CPT/HCPCS: 71250

== ENCOUNTER 2019-08-17 02:14 | Emergency (ER) | payer MEDICARE ==
[~2019-08-17] VITALS: Ht 167.6 cm; Wt 65.2 kg
--- NOTE | 2019-08-17 02:19 | PHYS DOC ---
Past History Past Medical History: Angina, Anxiety, Bronchitis, CAD, COPD, Heart Disease, Hypertension, [place], Other Past Surgical History: Angioplasty, Tonsillectomy Smoking: Cigarettes Alcohol Use: None Drug Use: None General Adult HPI: HPI: ".. I ve been getting worse the last month.. but the last two days.. much worse... doing my treatments every hour... " .. " I think it my COPD.. but if it is my heart.... The last time I was this bad.. they had to put a stent in me .. ." Patient is a 84 year old female who presents with above hx and complaints increased dyspnea and cough. Patient states symptoms have been progressing over the past month but the last 2 days it become much worse. Patient states she has been using her inhalers almost every hour to 2 hours tonight. Patient does take a daily aspirin. Patient does have history of COPD, chronic bronchitis, anxiety, hypothyroidism, coronary artery disease, depression, hypercapnia, peripheral vascular disease, intermittent claudication, hyperlipidemia, and osteoarthritis. Patient states she has been self isolated since the coronavirus and has not been in contact with any ill individuals. Pt. states she has not smoked the last 4 yrs. No recent travel outside the [place] area. Did get a flu vaccination this season. Patient follows with Dr. Bonds and Dr. Velasco Cardiology. Pt. follows with Dr. Jama for pulmonology. Review of Systems: Review of Systems: Constitutional: Denies fever or chills Eyes: Denies change in visual acuity HENT: Denies nasal congestion or sore throat Respiratory: Complains of cough and shortness of breath Cardiovascular: Complains of chest heaviness. GI: Denies abdominal pain, nausea, vomiting, bloody stools or diarrhea : Denies dysuria Musculoskeletal: Denies back pain or joint pain Integument: Denies rash Neurologic: Denies headache, focal weakness or sensory changes Endocrine: Denies polyuria or polydipsia Lymphatic: Denies swollen glands Psychiatric: Denies depression or anxiety Heart Score: HEART Score for Chest Pain: HEART Score for Chest Pain Response (Comments) Value History Highly Suspicious 2 ECG Nonspecific Repolarizatio 1 Age > 65 2 Risk Factors >3 Risk Factors or Hx CAD 2 Troponin >3 x Normal Limit 2 Total 9 Risk Factors: Risk Factors: DM, Current or recent (<one month) smoker, HTN, HLP, family history of CAD, obesity. Risk Scores: Score 0 - 3: 2.5% MACE over next 6 weeks - Discharge Home Score 4 - 6: 20.3% MACE over next 6 weeks - Admit for Clinical Observation Score 7 - 10: 72.7% MACE over next 6 weeks - Early Invasive Strategies Family History: Family History: Noncontributory to presentation Current Medications: Current Meds: See nursing for home meds Allergies: Allergies: Allergies Coded Allergies Type Severity Reaction Last Updated Verified Tyurgrv-Tes-Rvh Reductase Inhibitor Allergy Intermediate 03/22/17 Yes Physical Exam: PE: Constitutional: Moderate acute distress, non-toxic appearance. [] HENT: Normocephalic, atraumatic, bilateral external ears normal, oropharynx moist, no oral exudates, nose normal. [] Eyes: PERRLA, EOMI, conjunctiva normal, no discharge. [] Neck: Normal range of motion, no tenderness, supple, no stridor. [] Cardiovascular:Heart rate regular rhythm, no murmur [. PMI to the left] Lungs & Thorax: Bilateral breath sounds equal at apex with scattered wheezes throughout on auscultation [Pt. has] few basilar crackles. Abdomen: Bowel sounds normal, soft, no tenderness, no masses, no pulsatile masses. [] Obese. Old surgery scars Skin: Warm, dry, no erythema, no rash. Poor turgor. Back: No tenderness, no CVA tenderness. [] Extremities: No tenderness, no cyanosis, no clubbing, ROM intact, ankle edema. [] No cording appreciated Neurologic: Alert and oriented X 3, n moves extremities on request. No focal deficits noted. [] Psychologic: Affect anxious, judgement poor insight to her medical condition, mood depressed EKG: EKG: My interpretation EKG shows a sinus rhythm at 75 bpm. There is left axis deviation. There is an anterior fascicular block. No findings acute STEMI with contralateral changes. [] Radiology/Procedures: Radiology/Procedures: [][address] [address] IMAGING REPORT Signed PATIENT: YOLA MENDOZA ACCOUNT: [id number] : 1935 LOCATION: ER AGE: 84 SEX: F EXAM STATUS: REG ER ORD. PHYSICIAN: MICHEAL MARTIN MD REASON: dyspnea, hx. copd PROCEDURE: PORTABLE CHEST 1V AP chest x-ray HISTORY: Dyspnea, COPD. COMPARISON: CT chest December 07, 2018. FINDINGS: Heart size normal. Mediastinal silhouette is normal. Pulmonary emphysema and hyperinflation of the lungs stable. No pneumothorax, pulmonary opacities or pleural effusions. Left upper lobe small 6 mm nodular density between the posterior fourth and fifth rib not apparent on the prior x-ray a small new nodule is not excluded. Bones are unremarkable. IMPRESSION: No acute cardiopulmonary process. There may be a new 6 mm left upper lobe pulmonary nodule since prior imaging. This could be further assessed with CT imaging. Electronically signed by: Erin Gould MD (08/17/2019 4:11 AM) [id number] DICTATED AND SIGNED BY: ERIN GOULD MD DATE: 08/17/19 0411 CC: IAN BONDS MD; MICHEAL MARTIN MD ~ Course & Med Decision Making: Course & Med Decision Making Pertinent Labs and Imaging studies reviewed. (See chart for details) Pt. requested transfer to [facility] . Discussed presentation, testing and tx. plan with Dr. Moreno. Will accept pt at [facility]. Plan Consults to Dr. Velasco and Dr. Jama Impression: 1. Chest Pain 2. Dyspnea 3. COPD 4. Elevated Trop. 2.374 [] Dragon Disclaimer: Dragon Disclaimer: This electronic medical record was generated, in whole or in part, using a voice recognition dictation system. Departure Departure: Disposition: 01 HOME/RESIDENCE PRIOR TO ADM Condition: STABLE Referrals: IAN BONDS MD (PCP) Dragon Disclaimer This chart was dictated in whole or in part using Voice Recognition software in a busy, high-work load, and often noisy Emergency Department environment. It may contain unintended and wholly unrecognized errors or omissions. Dragon Disclaimer This chart was dictated in whole or in part using Voice Recognition software in a busy, high-work load, and often noisy Emergency Department environment. It may contain unintended and wholly unrecognized errors or omissions. Dragon Disclaimer This chart was dictated in whole or in part using Voice Recognition software in a busy, high-work load, and often noisy Emergency Department environment. It may contain unintended and wholly unrecognized errors or omissions. MICHEAL MARTIN MD Aug 17, 2019 02:19
[2019-08-17] MEDS ORDERED: AZITHROMYCIN 250 MG TABLET. PO ONE (03:00)
[2019-08-17] MEDS ORDERED: ASPIRIN CHEWABLE 81 MG TABLET. PO ONE (03:00)
[2019-08-17] MEDS ORDERED: methylPREDNISolone SOD SUCC PF 125 MG/2 ML VIAL. IV ONE (03:00)
[2019-08-17] MEDS ORDERED: IV RINGERS SOLUTION,LACTATED 1,000 ML IV SCH (03:00)
--- NOTE | 2019-08-17 03:09 | EKG ---
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
[2019-08-17] MEDS ORDERED: cefTRIAXone SODIUM 1 GM VIAL ONE (03:16)
[2019-08-17] MEDS ORDERED: IV NORMAL SALINE 50ML 50 ML ONE (03:16)
[2019-08-17] MEDS ORDERED: IPRATRPIUM/ALBUTEROL 0.5/2.5MG 3 ML NEBU. ONE (03:54)
--- NOTE | 2019-08-17 04:14 | RAD ---
AP chest x-ray HISTORY: Dyspnea, COPD. COMPARISON: CT chest December 07, 2018. FINDINGS: Heart size normal. Mediastinal silhouette is normal. Pulmonary emphysema and hyperinflation of the lungs stable. No pneumothorax, pulmonary opacities or pleural effusions. Left upper lobe small 6 mm nodular density between the posterior fourth and fifth rib not apparent on the prior x-ray a small new nodule is not excluded. Bones are unremarkable. IMPRESSION: No acute cardiopulmonary process. There may be a new 6 mm left upper lobe pulmonary nodule since prior imaging. This could be further assessed with CT imaging. Electronically signed by: Yasir Gould MD (08/17/2019 4:11 AM) [id number]
[2019-08-17] MEDS ORDERED: IPRATRPIUM/ALBUTEROL 0.5/2.5MG 3 ML NEBU. NEB ONE ×3 (04:30→08:15)
[2019-08-17 05:17] LABS: BASO # 0.1 x10^3/uL (0.0-0.2); BASO % 0 % (0-3); EOS # 0.5 x10^3/uL (0.0-0.7); EOS % 4 % (0-3); HEMOGLOBIN 11.7 g/dL (12.0-15.5); LYMPH # 1.7 x10^3/uL (1.0-4.8); LYMPH % 12 % (24-48); MEAN CORPUSCULAR HEMOGLOBIN 27 pg (25-35); MEAN CORPUSCULAR HGB CONC 32 g/dL (31-37); MEAN CORPUSCULAR VOLUME 84 fL (79-100); MONO # 1.1 x10^3/uL (0.0-1.1); MONO % 8 % (0-9); NEUT # 10.4 x10^3uL (1.8-7.7); NEUT % 76 % (31-73); PLATELET COUNT 466 x10^3/uL (140-400); RED BLOOD COUNT 4.38 x10^6/uL (3.50-5.40); RED CELL DISTRIBUTION WIDTH 14.4 % (11.5-14.5); WHITE BLOOD COUNT 13.7 x10^3/uL (4.0-11.0)
[2019-08-17 06:02] LABS: CALCIUM 9.6 mg/dL (8.5-10.1); CREATININE 0.8 mg/dL (0.6-1.0); GFR 68.7; POTASSIUM 3.9 mmol/L (3.5-5.1)
[2019-08-17 06:05] LABS: ALBUMIN 3.6 g/dL (3.4-5.0); DIRECT BILIRUBIN 0.1 mg/dL (0.0-0.2); TOTAL BILIRUBIN 0.2 mg/dL (0.2-1.0); TOTAL PROTEIN 6.9 g/dL (6.4-8.2)
[2019-08-17 06:09] LABS: INFLUENZA A PATIENT NEGATIVE (NEGATIVE); INFLUENZA B PATIENT NEGATIVE (NEGATIVE)
[2019-08-17 06:55] VITALS: BP 151/79
[2019-08-17] MEDS ORDERED: HEPARIN for IV BOLUS 10,000 UNIT/10 ML VIAL. IV ONE (07:00)
[2019-08-17] MEDS ORDERED: HEPARIN 25,000UTS/250ML PREMIX 250 ML IV PRN ×2 (07:00→07:30)
[2019-08-17] MEDS ORDERED: HEPARIN for IV BOLUS 10,000 UNIT/10 ML VIAL. IV PRN (07:30)
[2019-08-17 09:22] LABS: % BANDS 1 % (0-9); % EOS 2 % (0-5); % LYMPHS 17 % (24-48); % MONOS 8 % (0-10); % SEGS 72 % (35-66)
[2019-08-17 09:23] LABS: PLT ESTIMATE ADEQUATE (ADEQUATE)
== END 2019-08-17 09:08 | disposition short-term general hospital (02) ==
LOC: ER 02:14
DX: J44.9 Chronic obstructive pulmonary disease, unspecified (principal); R06.00 Dyspnea, unspecified; R07.89 Other chest pain; R79.89 Other specified abnormal findings of blood chemistry; E03.9 Hypothyroidism, unspecified; I25.10 Atherosclerotic heart disease of native coronary artery without angina pectoris; I11.9 Hypertensive heart disease without heart failure; I25.2 Old myocardial infarction; F17.210 Nicotine dependence, cigarettes, uncomplicated; Z98.61 Coronary angioplasty status; Z88.8 Allergy status to other drugs, medicaments and biological substances
CPT/HCPCS: 36415; 71045; 80048; 80076; 82550; 83690; 83735; 83880; 84443; 84484; 85007; 85025; 85379; 85610; 85730; 87040; 87070; 87804; 87880; 93005; 94640; 96365; 96367; 96375; 96376; 99285; J0456; J0696; J1644; J2060; J2930; J7120; 36600

== ENCOUNTER → 2019-10-08 | Outpatient (CLI) | payer MEDICARE ==
[~2019-10-08] MED LIST changes: +MULT-445 PO; -MULT1TAB52 PO
--- NOTE | 2019-10-08 15:53 | RAD ---
MR#: [id number] Date of Study: 10/08/2019 Ordering Physician: JACE FABIAN, Referring Physician: JACE FABIAN, Tech: Becca Sunshine RVT,JEREL APPROVED REPORT Patient Location: OUT-PATIENT Indications PAD Grayscale images of the bilateral lower extremity arterial vessels demonstrate moderate diffuse plaqu e. Based on velocity criteria and spectral waveforms no critical stenosis identified bilaterally fro m the common femoral artery to the popliteal level. Below the knee there is three-vessel runoff bila terally with mildly diminished velocities but no critical stenosis identified. Risk Factors Hypertension Smoking VELOCITY AND DOPPLER WAVEFORM ANALYSIS RIGHT cm/secWaveformSeverity LEFT cm/secWaveform Severity pCFA 205.9TriphasicpCFA 144.1Triphasic Prof Fem Art. 92.0MonophasicProf Fem Art. 69.0Monophasic Fem Art Prox. 107.7BiphasicFem Art Prox. 115.7Biphasic Fem Art Mid. 128.1BiphasicFem Art Mid. 164.1Biphasic Fem Art Dist. 81.6BiphasicFem Art Dist. 89.1Biphasic Pop Art(Fossa) 113.5BiphasicPop Art(AK) 57.4Biphasic CRUSHER AND BLENDER OPERATOR Prox. 61.5BiphasicPTA Prox. 48.1Biphasic CRUSHER AND BLENDER OPERATOR Dist. 47.3BiphasicPTA Dist. 60.6Biphasic Per Art Prox. 35.1TriphasicPer Art Prox. 52.8Biphasic SHARONA Prox. 45.2BiphasicATA Prox. 38.3Biphasic DPA 37BiphasicDPA 48Biphasic Critical Notification Critical Value: No <Conclusion> 1. Moderate diffuse atherosclerotic plaque without any critical stenosis based on velocity criteria. Signed by : Max Rowan, Electronically Approved : 10/08/2019 15:53:33
== END | disposition home or self-care (01) ==
LOC: US 14:15
PROVIDERS: ATTEND Internal Medicine Cardiovascular Disease
DX: I25.10 Atherosclerotic heart disease of native coronary artery without angina pectoris (principal)
CPT/HCPCS: 93925

== ENCOUNTER 2019-10-26 04:27 | Inpatient (IN) | payer MEDICARE ==
[~2019-10-26] VITALS: Ht 170.2 cm; Wt 65.6 kg
--- NOTE | 2019-10-26 04:46 | PHYS DOC ---
Past History Past Medical History: Angina, Anxiety, Bronchitis, CAD, COPD, Heart Disease, Hypertension, MD, Other Additional Past Medical Histor: Coronary artery stents Past Surgical History: Angioplasty, Tonsillectomy Additional Past Surgical Histo: delmar knee arthroscopies; lower back surg; coronary stents Smoking: Cigarettes, Quit Greater Than 1 Year Alcohol Use: Occasionally Drug Use: None General Adult EDM: Chief Complaint: SHORTNESS OF BREATH HPI: HPI: ".. I ve been more short of breath... "..".. I got up to go pee... and when I came back .. I could not get my breath.. just so short of breath...I just left the Hospital at [facility]... I was on the the sixth floor.. I will not go back there... anywhere but the sixth floor...at [place]... " Patient is a 84 year old female who presents with above hx and complaints of onset of severe dyspnea. Patient has known history of COPD and has approximat yuri 1 severe exacerbation per year which requires hospitalization. Patient normally follows with Dr. Bonds for [facility] care. No recent travel outside the [place] area. Has been exposed to other sick patients during her admission at [facility]. Patient denies any contact with sick individuals at home. No changes in her meds. Patient states tonight when she became severely dyspneic breathing treatment did not help. Patient has known history of COPD, chronic bronchitis, anxiety, hypothyroidism, coronary artery disease, MD with stents, depression, hypercalcemia, peripheral vascular disease with claudication with walking, hyperlipidemia, osteoarthritis, history of hypercapnic and hypoxic respiratory failures. Patient does have a history of hypertension, renal stones, gallstones, and deconditioning. Pt. has a 55 pack year smoking hx. Patient normally follows with Dr. Jama or Dr. Lane for pulmonary, Dr. Velasco for Cardiology. Patient states she quit smoking in . Patient states the episodes of dyspnea tonight she did not have any significant sputum production. Patient not currently on any antibiotics. Review of Systems: Review of Systems: Constitutional: Denies fever or chills Eyes: Denies change in visual acuity HENT: Denies nasal congestion or sore throat Respiratory: Complains of cough and shortness of breath Cardiovascular: Denies chest pain or edema GI: Denies abdominal pain, nausea, vomiting, bloody stools or diarrhea : Denies dysuria Musculoskeletal: Denies back pain or joint pain Integument: Denies rash Neurologic: Denies headache, focal weakness or sensory changes Endocrine: Denies polyuria or polydipsia Lymphatic: Denies swollen glands Psychiatric: Denies depression or anxiety Heart Score: HEART Score for Chest Pain: HEART Score for Chest Pain Response (Comments) Value History Moderately Suspicious 1 ECG Nonspecific Repolarizatio 1 Age > 65 2 Risk Factors 1 or 2 Risk Factors 1 Total 5 Risk Factors: Risk Factors: DM, Current or recent (<one month) smoker, HTN, HLP, family history of CAD, obesity. Risk Scores: Score 0 - 3: 2.5% MACE over next 6 weeks - Discharge Home Score 4 - 6: 20.3% MACE over next 6 weeks - Admit for Clinical Observation Score 7 - 10: 72.7% MACE over next 6 weeks - Early Invasive Strategies Family History: Family History: Noncontributory Current Medications: Current Meds: See nursing for home meds Allergies: Allergies: Allergies Coded Allergies Type Severity Reaction Last Updated Verified Wvwehay-Nff-Gyw Reductase Inhibitor Allergy Intermediate 08/17/19 Yes Physical Exam: PE: Constitutional: Moderately acute distress, non-toxic appearance. [] HENT: Normocephalic, atraumatic, bilateral external ears normal, oropharynx moist, no oral exudates, nose normal. Poor dentition Eyes: PERRLA, EOMI, conjunctiva normal, no discharge. [] Neck: Normal range of motion, no tenderness, supple, no stridor. [] Cardiovascular:Heart rate regular rhythm, no murmur [] PMI to the left Lungs & Thorax: Bilateral breath sounds equal apex with scattered wheezes on auscultation [] Abdomen: Bowel sounds normal, soft, no tenderness, no masses, no pulsatile masses. [] Skin: Warm, dry, no erythema, no rash. Poor turgor Back: No tenderness, no CVA tenderness. [] Extremities: No tenderness, no cyanosis, no clubbing, ROM intact, no edema. Arthritic changes. No obvious cording appreciated Neurologic: Alert and oriented X 3, moves extremities on request, has distal sensory, no gross focal deficits noted. [] Psychologic: Affect anxious,, judgement normal, mood normal. [] Current Patient Data: Vital Signs: Vital Signs Date Time Temp Pulse Resp B/P (MAP) Pulse Ox O2 Delivery O2 Flow Rate FiO2 10/26/19 04:40 98.4 87 30 133/57 (82) 99 Nasal Cannula 4.0 EKG: EKG: My interpretation EKG shows a sinus rhythm at 84 bpm. Left axis deviation, nonspecific anterior fascicular block. No findings of acute STEMI with contralateral changes. Low voltage. Radiology/Procedures: Radiology/Procedures: [][address] [address] IMAGING REPORT Signed PATIENT: YOLA MENDOZA ACCOUNT: [id number] : 1935 LOCATION: ER AGE: 84 SEX: F EXAM STATUS: REG ER ORD. PHYSICIAN: MICHEAL MARTIN MD REASON: dyspnea PROCEDURE: PORTABLE CHEST 1V AP chest. HISTORY: Dyspnea AP view was taken of the chest. There is no pneumothorax or pleural effusion. Heart is normal in size. There are changes of chronic obstructive pulmonary disease. A new infiltrate is not identified. There is arthritis in both shoulders. IMPRESSION: 1. COPD. 2. No acute infiltrates. Electronically signed by: Roman Castillo MD (10/26/2019 5:06 AM) [id number] DICTATED AND SIGNED BY: ROMAN CASTILLO MD DATE: 10/26/19 0506 CC: IAN BONDS MD; MICHEAL MARTIN MD ~ Course & Med Decision Making: Course & Med Decision Making Pertinent Labs and Imaging studies reviewed. (See chart for details) Discussed presentation testing and treatment plan with . Will admit as observational status. Repeat troponin and cardiology consult. Will do a course of antibiotics. Impression: 1. Acute Dyspnea 2. COPD Exacerbation 3. Leukocytosis 13.8 4. Anemia. Hgb 10.2 5. Elevated Creat 1.2 6. Elevated troponin 0.666 7. Oxygen dependent at 4 L nasal cannula [] Dragon Disclaimer: Dragon Disclaimer: This electronic medical record was generated, in whole or in part, using a voice recognition dictation system. Departure Departure: Disposition: 01 HOME/RESIDENCE PRIOR TO ADM Condition: STABLE Referrals: IAN BONDS MD (PCP) Justification of Admission: Justification of Admission: Justification of Admission Dx: Yes Acute COPD Exacerbation: Acute COPD Exacerbation Dragon Disclaimer This chart was dictated in whole or in part using Voice Recognition software in a busy, high-work load, and often noisy Emergency Department environment. It may contain unintended and wholly unrecognized errors or omissions. Dragon Disclaimer This chart was dictated in whole or in part using Voice Recognition software in a busy, high-work load, and often noisy Emergency Department environment. It may contain unintended and wholly unrecognized errors or omissions. MICHEAL MARTIN MD Oct 26, 2019 04:46
--- NOTE | 2019-10-26 04:59 | EKG ---
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
[2019-10-26] MEDS ORDERED: cefTRIAXone SODIUM 1 GM VIAL ONE (05:04)
[2019-10-26] MEDS ORDERED: IV NORMAL SALINE 50ML 50 ML ONE (05:04)
--- NOTE | 2019-10-26 05:09 | RAD ---
AP chest. HISTORY: Dyspnea AP view was taken of the chest. There is no pneumothorax or pleural effusion. Heart is normal in size. There are changes of chronic obstructive pulmonary disease. A new infiltrate is not identified. There is arthritis in both shoulders. IMPRESSION: 1. COPD. 2. No acute infiltrates. Electronically signed by: Roman Castillo MD (10/26/2019 5:06 AM) [id number]
[2019-10-26] MEDS ORDERED: ASPIRIN CHEWABLE 81 MG TABLET. PO ONE (05:15)
[2019-10-26] MEDS ORDERED: methylPREDNISolone SOD SUCC PF 125 MG/2 ML VIAL. IV ONE (05:15)
[2019-10-26] MEDS ORDERED: IPRATRPIUM/ALBUTEROL 0.5/2.5MG 3 ML NEBU. NEB ONE (05:15)
[2019-10-26] MEDS ORDERED: AZITHROMYCIN 250 MG TABLET. PO ONE (05:15)
[2019-10-26] MEDS ORDERED: IV RINGERS SOLUTION,LACTATED 1,000 ML IV SCH (05:15)
[2019-10-26 05:30] LABS: BASO % 0 % (0-3); EOS # 0.4 x10^3/uL (0.0-0.7); EOS % 3 % (0-3); HEMATOCRIT 32.7 % (36.0-47.0); HEMOGLOBIN 10.2 g/dL (12.0-15.5); LYMPH # 2.1 x10^3/uL (1.0-4.8); LYMPH % 15 % (24-48); MEAN CORPUSCULAR HEMOGLOBIN 27 pg (25-35); MEAN CORPUSCULAR HGB CONC 31 g/dL (31-37); MEAN CORPUSCULAR VOLUME 86 fL (79-100); MONO # 1.1 x10^3/uL (0.0-1.1); MONO % 8 % (0-9); NEUT # 10.3 x10^3uL (1.8-7.7); NEUT % 74 % (31-73); PLATELET COUNT 419 x10^3/uL (140-400); RED BLOOD COUNT 3.81 x10^6/uL (3.50-5.40); WHITE BLOOD COUNT 13.8 x10^3/uL (4.0-11.0)
[2019-10-26 05:32] LABS: CREATININE 1.2 mg/dL (0.6-1.0)
[2019-10-26 05:46] LABS: ALBUMIN 3.2 g/dL (3.4-5.0); DIRECT BILIRUBIN 0.1 mg/dL (0.0-0.2); MAGNESIUM 2.1 mg/dL (1.8-2.4); TOTAL BILIRUBIN 0.2 mg/dL (0.2-1.0); TOTAL PROTEIN 6.4 g/dL (6.4-8.2)
[2019-10-26 05:55] LABS: BARBITURATES NEG (NEG); BENZODIAZEPINES NEG (NEG); BILIRUBIN,URINE NEG (NEG); CANNABINOIDS NEG (NEG); CLARITY,URINE CLEAR; COCAINE NEG (NEG); COLOR,URINE YELLOW; GLUCOSE,URINE NEG (NEG); METHADONE NEG (NEG); OPIATES NEG (NEG); PHENCYCLIDINE NEG (NEG)
[2019-10-26 05:56] LABS: BACTERIA,URINE FEW /HPF (0-FEW); GRANULAR CASTS,URINE FEW /HPF; NITRITE,URINE NEG (NEG); RBC,URINE OCC /HPF (0-2); SQUAMOUS EPITHELIAL CELL,UR FEW /LPF; UROBILINOGEN,URINE 0.2 mg/dL (0.2 mg/dL)
[2019-10-26 05:58] LABS: AMPHETAMINE/METHAMPHETAMINE NEG (NEG)
[2019-10-26] MEDS ORDERED: ONDANSETRON PF 4 MG/2 ML VIAL. IVP PRN (06:15)
[2019-10-26] MEDS ORDERED: ACETAMINOPHEN 325 MG TABLET PO PRN (06:15)
[2019-10-26] MEDS ORDERED: HEPARIN for SUB-Q USE 5,000 UNIT/ML VIAL. SQ ONE (06:30)
[2019-10-26] MEDS ORDERED: NITROGLYCERIN OINT 1 GM PACKET. TP ONE (06:30)
--- NOTE | 2019-10-26 08:15 | NUR ---
Patient arrived to unit via EMS. Patient upon arrival stated to this nurse "I need a nebulizer". This nurse told patient she would check chart and be in shortly with a breathing treatment. During assessment patient is very anxious. Dr. Moreno called and order received for Ativan 0.5mg PRN Q2 received. Ativan administered and breathing treatment. Patient is more comfortable now. Patient is eating breakfast at this time. Will continue to monitor.
[2019-10-26] MEDS: IPRATRPIUM/ALBUTEROL 0.5/2.5MG 3 ML NEBU. NEB SCH ×4 (08:35→20:00)
[2019-10-26] MEDS ORDERED: ASPIRIN 325 MG TABLET PO SCH (09:00)
[2019-10-26 09:11] VITALS: BP 162/74
[2019-10-26 10:18] VITALS: BP 137/77
[2019-10-26] MEDS ORDERED: METO-313 PO (12:10)
[2019-10-26] MEDS ORDERED: ASPI-612 PO (12:15)
[2019-10-26] MEDS ORDERED: UBID200C7 PO (12:15)
[2019-10-26] MEDS: NITROGLYCERIN OINT 1 GM PACKET. TP SCH ×2 (14:00→20:37)
[2019-10-26] MEDS ORDERED: FURO20TA3 PO (15:10)
[2019-10-26] MEDS ORDERED: ALBUTEROL SULFATE 8GM INHALER. INH PRN (15:30)
[2019-10-26] MEDS ORDERED: HEPARIN 25,000UTS/250ML PREMIX 250 ML IV PRN ×2 (15:45→16:00)
[2019-10-26 15:56] VITALS: BP 106/62
[2019-10-26] MEDS ORDERED: HEPARIN for IV BOLUS 10,000 UNIT/10 ML VIAL. IV PRN (16:00)
--- NOTE | 2019-10-26 16:16 | HP ---
ADMIT DATE: 10/26/2019 HISTORY OF PRESENT ILLNESS: The patient is an 84-year-old female patient, who came to the Emergency Room early this morning. She basically woke up, she dialed her grandson telephone number, but she could not talk, so he knew that she is in severe shortness of breath and they called the ambulance. The patient was brought to the Emergency Room where she was evaluated. She apparently was discharged from [facility] only recently. She stated that she will never go to [facility], especially going to the 6th floor. Her lab work showed a white cell count to be slightly elevated at 13,800. Her chemistry showed her troponin to be slightly elevated at 0.666. Beta natriuretic peptide was 183 and TSH was 0.680. Her D-dimer was elevated to 1.4 and was admitted to continue treatment and to do 2 more sets of cardiac enzyme, consult the Cardiology team. The patient herself denied any chest pain and did complain of shortness of breath and cough that is mostly dry. PAST MEDICAL HISTORY: Significant for coronary artery disease, status post myocardial infarction, status post multiple stent deployment. She is known to have hypertension, hyperlipidemia, carotid artery disease, chronic obstructive pulmonary disease, cholelithiasis, generalized osteoarthritis, hypothyroidism and osteopenia. PAST SURGICAL HISTORY: Significant for PCI and drug-eluting stent to the right coronary artery, left circumflex and left anterior descending. She underwent bunionectomy and back surgery, tonsillectomy as well as arthroscopic surgery to both knees. She has had cardiac catheterization done on 08/19/2019, which showed the patient has previously placed stents to left anterior descending, left circumflex, and right coronary arteries are patent. There was 50% stenosis involving the mid to distal segment of the left anterior descending. That was significantly physiologically insignificant based on IFR measurement of 0.93. She has hyperdynamic left ventricular systolic function, ejection fraction estimated at 75%. She also has acute on chronic diastolic heart failure as evidenced by elevated left ventricular end diastolic pressure. FAMILY HISTORY: Noncontributory. SOCIAL HISTORY: She is . Her grandson lives with her. She has not smoked for the last 40 years. She does not drink alcohol or use any recreational drugs. ALLERGIES: SHE IS ALLERGIC TO STATINS, HYDROXYMETHYL GLUTARYL COENZYME REDUCTASE INHIBITORS HAS CAUSE MUSCLE WASTING AND PAIN. REVIEW OF SYSTEMS: The patient denied any blurring of vision. She has cataracts. Denied any glaucoma or macular degeneration. Denied any earache, tinnitus or sensorineural deafness. Denied any nosebleeds, stuffy nose or postnasal drip. Denied any sore throat, sore tongue, toothache, hoarseness of voice or difficulty swallowing. Denied any nausea, vomiting, diarrhea or constipation. Denied any hematemesis, melena, hematochezia. Denied any dysuria, frequency, hematuria. Did complain of chest pain and shortness of breath. She has cough, mostly dry. Denied any phlegm or hemoptysis. MEDICATIONS: She is currently on following medications: She is on ipratropium bromide, albuterol sulfate by nebulizer 4 times a day, Plavix 75 mg daily, metoprolol tartrate 50 mg twice a day, losartan potassium 100 mg daily, aspirin 81 mg once a day, furosemide 20 mg daily, levothyroxine sodium 75 mcg once a day, ascorbic acid with bioflavonoid 1 tablet once a day, cholecalciferol 1000 international unit once a day, multivitamin 1 tablet once a day, glucosamine chondroitin sulfate tablet once a day, and CoQ10 100 mg once a day. PHYSICAL EXAMINATION: GENERAL: On arrival to the Emergency Room, the patient was clearly tachypneic, pale, but no jaundice, cyanosis or thyromegaly. No jugular venous distention. No lower limb edema. VITAL SIGNS: Her heart rate was 91, blood pressure was 133/57, temperature was 98.4, respiratory rate was 30 and oxygen saturation was 97% on 4 liters of oxygen. HEAD, EYES, EARS, NOSE AND THROAT: Showed normocephalic, atraumatic. NECK: Supple. HEART: Showed normal first and second heart sounds. No gallop, rub or murmur. CHEST: Clear to auscultation. Scattered rhonchi and wheezing bilaterally. I could not appreciate any crepitation. ABDOMEN: Distended, soft, nontender. No guarding or rigidity. No organomegaly. All hernial orifice intact. Bowel sounds normal. NEUROLOGIC: She is awake, alert, oriented x 3. She moves all extremities without difficulty. Psychologically, she is very anxious; however, her judgment and mood were normal. LABORATORY DATA: Her EKG showed that she was in sinus rhythm at 84 beats per minute with left axis deviation, nonspecific anterior fascicular block, no finding of acute ST segment elevation myocardial infarction. Her chest x-ray showed there is no pneumothorax or pleural effusion. The heart size is normal. There are changes of chronic obstructive pulmonary disease, new infiltrate is not identified. There is arthritis in both shoulders. Her lab work showed that her white cell count was 13,800, hemoglobin 10, hematocrit 33, MCV 86 and platelet count of 419,000. Her chemistry showed a serum sodium 138, potassium 4, chloride 100, bicarbonate 31, anion gap of 7, BUN 14, creatinine 1.2, estimated GFR was 43 mL per minute. Her glucose was 91, calcium was 9, magnesium was 2.1. Total bilirubin, AST, ALT, alkaline phosphatase were normal. Her first set of cardiac enzymes showed troponin to be 0.666. Her beta natriuretic peptide was 483. Total protein was 6.4, albumin was 3.2. Serum lipase was 254. TSH was 0.680. Her prothrombin time was 9.3, INR of 0.9, APTT was 21. Her D-dimer was slightly elevated to 1.4. Urinalysis showed the urine was yellow, clear with a pH of 6, specific gravity of 1.020. There was small amount of protein. The urine was negative for glucose, ketones. There was trace of blood, negative for nitrite and bilirubin. There was a trace of leukocyte esterase, occasional rbc's, 5-10 wbc's, and no bacteria. Her toxic screen was essentially negative. Her chest x-ray showed that there is no pneumothorax or pleural effusion. The heart size is normal. There are changes of chronic obstructive pulmonary disease, new infiltrate not identified. There is arthritis in both shoulders. The patient was admitted basically with COPD exacerbation. She has also elevated D-dimer. She also has chronic renal failure and leukocytosis. She apparently was discharged recently from [facility] and was on steroids. PLAN: My plan is to basically continue with methylprednisone, Solu-Medrol 40 mg IV every 8 hours. Continue with IV antibiotic in the form of ceftriaxone as well as Zithromax. Continue with ipratropium bromide, albuterol sulfate and continue with albuterol inhaler by nebulizer every 2 hours. I will add Singulair as well as Pulmicort and Mucinex. She has 2 sets of cardiac enzymes that are rising. Apparently, has similar presentation recently on July of this year and cardiac catheterization showed that the stents are patent and in consultation with Dr. Velasco. He recommended starting her on heparin, which we will do also. INDU YANES MD DR: ODILIA/victorino JOB#: [id number] / [id number]
[2019-10-26] MEDS ORDERED: HEPARIN for IV BOLUS 10,000 UNIT/10 ML VIAL. IV ONE (16:30)
[2019-10-26] MEDS: CLOPIDOGREL BISULFATE 75 MG TABLET PO SCH (16:50)
[2019-10-26] MEDS: methylPREDNISolone SOD SUCC PF 40 MG/ML VIAL. IV SCH ×2 (16:50→22:01)
[2019-10-26 18:50] VITALS: BP 115/57
[2019-10-26] MEDS: BUDESONIDE 0.5 MG/2 ML NEBU NEB SCH (20:00)
[2019-10-26] MEDS: LACTOBACILLUS RHAMNOSUS GG 1 CAPSULE. PO SCH (20:36)
[2019-10-26] MEDS: METOPROLOL TART IMMED RELEASE 50 MG TABLET PO SCH (20:36)
[2019-10-26] MEDS ORDERED: MONTELUKAST 10 MG TABLET. PO SCH (21:00)
--- NOTE | 2019-10-26 22:50 | NUR ---
Shannon thump from outside of the room. 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 Pt stated, "I was trying to put on my other sock." Pt's VS were done at this time and recorded. Pt has a round notch on her right forehead. Pt denies pain anywhere else. No bruises noted at this time. Got pt back in her bed x2 assist, and put bed alarm on pt. Will continue to monitor.
[2019-10-26 23:20] VITALS: BP 110/67
--- NOTE | 2019-10-26 23:34 | NUR ---
Upon entering the room to take pt to ct her right knee is swollen. Called MD and orders given. Will continue to monitor.
--- NOTE | 2019-10-27 00:03 | RAD ---
CT HEAD WO CONTRAST Date: 10/26/2019 11:16 PM Clinical Indication: Reason: fell and hit head on heparin gtt / Spl. Instructions: / History: Comparison: 07/30/2018. Technique: 5 mm axial tomographic images were obtained of the head without contrast. These were viewed on brain and bone windows. One or more of the following dose reduction techniques were utilized: Automated exposure control (AEC), Adjustment of mA and/or kV according to patient size, Use of iterative reconstruction technique such as ASiR, CT scan done according to ALARA and image gently/image wisely Findings: Mild generalized cerebral and cerebellar volume loss. Mild nonspecific periventricular hypoattenuation, most commonly seen with chronic small vessel ischemic disease. Calcified atherosclerosis of the bilateral cavernous and paraclinoid internal carotid arteries and intracranial vertebral arteries. No intra- or extra-axial mass or fluid collection. No acute hemorrhage. The ventricles are normal in size, shape, and morphology. The menjivar-white matter junction is normal. The subarachnoid cisterns are patent. The visualized paranasal sinuses are normal. The visualized portions of the orbits and globes are normal. The mastoid air cells are clear. The grinder operator tool topogram shows no lytic lesion or fracture. Right frontal scalp swelling. Impression: No acute intracranial process. Right frontal scalp swelling. Mild cerebral volume loss. Mild chronic small vessel ischemic disease. Electronically signed by: Albert Cotto MD (10/27/2019 12:00 AM) [facility]
--- NOTE | 2019-10-27 00:22 | RAD ---
KNEE RIGHT 3V DATE: 10/26/2019 11:31 PM INDICATION: Reason: Injury from fall tonight, right anterior knee swelling / Spl. Instructions: / History: COMPARISON: None. FINDINGS: Bones: There is no evidence of acute fracture or dislocation. Joints: Mild tricompartmental joint space narrowing. There is no joint effusion. Chondrocalcinosis of the menisci, nonspecific but often associated with CPPD arthropathy. Miscellaneous: Prepatellar soft tissue swelling. IMPRESSION: No evidence of acute fracture. Electronically signed by: Albert Cotto MD (10/27/2019 12:19 AM) [facility]
[2019-10-27] MEDS: IPRATRPIUM/ALBUTEROL 0.5/2.5MG 3 ML NEBU. NEB SCH ×5 (05:02→19:55)
[2019-10-27] MEDS: LEVOTHYROXINE 75 MCG TABLET PO SCH (05:41)
[2019-10-27] MEDS: methylPREDNISolone SOD SUCC PF 40 MG/ML VIAL. IV SCH ×3 (05:41→21:05)
[2019-10-27 05:57] VITALS: BP 132/70
--- NOTE | 2019-10-27 06:32 | NUR ---
Spoke to patient's son James Stockton to notify him that the patient fell last night.
[2019-10-27 07:20] LABS: BASO % 0 % (0-3); EOS % 0 % (0-3); HEMATOCRIT 24.2 % (36.0-47.0); HEMOGLOBIN 7.8 g/dL (12.0-15.5); LYMPH # 1.7 x10^3/uL (1.0-4.8); LYMPH % 11 % (24-48); MEAN CORPUSCULAR HEMOGLOBIN 27 pg (25-35); MEAN CORPUSCULAR HGB CONC 32 g/dL (31-37); MEAN CORPUSCULAR VOLUME 85 fL (79-100); MONO # 0.9 x10^3/uL (0.0-1.1); MONO % 6 % (0-9); NEUT # 12.9 x10^3uL (1.8-7.7); NEUT % 83 % (31-73); PLATELET COUNT 331 x10^3/uL (140-400); RED BLOOD COUNT 2.85 x10^6/uL (3.50-5.40); RED CELL DISTRIBUTION WIDTH 16.1 % (11.5-14.5); WHITE BLOOD COUNT 15.6 x10^3/uL (4.0-11.0)
[2019-10-27 07:40] LABS: ALBUMIN 2.8 g/dL (3.4-5.0); CALCIUM 8.7 mg/dL (8.5-10.1); GFR 53.1; POTASSIUM 4.1 mmol/L (3.5-5.1); TOTAL BILIRUBIN 0.2 mg/dL (0.2-1.0); TOTAL PROTEIN 5.6 g/dL (6.4-8.2)
[2019-10-27] MEDS: NITROGLYCERIN OINT 1 GM PACKET. TP SCH ×2 (09:00→14:00)
[2019-10-27] MEDS: CLOPIDOGREL BISULFATE 75 MG TABLET PO SCH (09:00)
[2019-10-27] MEDS ORDERED: ASPIRIN ENTERIC COATED 81 MG TABLET.DR. PO SCH (09:00)
[2019-10-27] MEDS ORDERED: LOSARTAN 50 MG TABLET. PO SCH (09:00)
[2019-10-27] MEDS ORDERED: methylPREDNISolone SOD SUCC PF 40 MG/ML VIAL. IV SCH (09:00)
[2019-10-27] MEDS: LACTOBACILLUS RHAMNOSUS GG 1 CAPSULE. PO SCH ×2 (09:01→21:04)
[2019-10-27] MEDS: FUROSEMIDE 20 MG TABLET PO SCH (09:01)
[2019-10-27] MEDS: MULTIVITAMIN with MINERAL TABLET. PO SCH (09:01)
[2019-10-27] MEDS: AZITHROMYCIN 250 MG TABLET. PO SCH (09:01)
[2019-10-27] MEDS: CHOLECALCIFEROL (VITAMIN D3) 1,000 UNIT TABLET PO SCH (09:01)
[2019-10-27] MEDS: ASCORBIC ACID 500 MG TABLET PO SCH (09:01)
[2019-10-27] MEDS: METOPROLOL TART IMMED RELEASE 50 MG TABLET PO SCH ×2 (09:02→21:04)
[2019-10-27] MEDS: UBIDECARENONE 50 MG CAPSULE. PO SCH (09:11)
[2019-10-27] MEDS: GLUCOSAMINE/CHOND 500/400MG CAPSULE PO SCH (09:11)
[2019-10-27] MEDS: BUDESONIDE 0.5 MG/2 ML NEBU NEB SCH ×2 (09:27→19:55)
[2019-10-27 10:54] VITALS: BP 116/61
--- NOTE | 2019-10-27 12:50 | PDOC2 ---
CONSULT Date of Admission DATE: 10/27/19 TIME: 12:49 Reason for Consult: Non-STEMI Referring Physician: Dr. Moreno Chief Complaint Shortness of breath Source: Chart review, Patient Problem List Problems Medical Problems: (1) COPD with acute exacerbation Status: Acute History of Present Illness 84-year-old female with known history of coronary artery disease s/p multivessel PCI/stents placement in the past presented complaining of severe shortness of breath associated with chest tightness. She was diagnosed with acute COPD exacerbation and admitted for further management. Her troponin level was elevated prompting cardiology consultation. She stated that her dyspnea improved significantly since admission and presently denied any chest pain. Last night she was attempting to get out of the bed and apparently fell down per nursing personnel, probably secondary to confusion. She complained of dizziness but denied any orthopnea/PND or palpitations. Past Medical History Coronary artery disease s/p multivessel PCI/stents placement with cardiac catheterization 08/19/19 showing patent stents in LAD, LCx and RCA with moderate stenosis involving the mid to distal segment of LAD that was insignificant based on IFR measurement. Ischemic cardiomyopathy with diminished LV function in the past but left ventriculography during recent cardiac catheterization actually showed hyperdynamic left ventricle systolic function with EF 75%. Hypertension Hyperlipidemia Peripheral artery disease s/p SCIENCES DEAN/stents placement to bilateral EIA COPD Past Surgical History Knee surgery Back surgery Family History Parkinson's disease, hypertension and prostate cancer Social History Patient quit smoking in 2014 I denied any alcohol or drug abuse Current Medications Current Medications Aspirin (Aspirin Chewable) 324 mg 1X ONCE PO Last administered on 10/26/19at 05:32; Start 10/26/19 at 05:15; Stop 10/26/19 at 05:16; Status DC Lactated Ringer's 1,000 ml @ 100 mls/hr Q10H IV Last administered on 10/26/19at 05:32; Start 10/26/19 at 05:15; Stop 10/26/19 at 15:14; Status DC Albuterol/ Ipratropium (Duoneb) 3 ml 1X ONCE NEB Last administered on 10/26/19at 05:31; Start 10/26/19 at 05:15; Stop 10/26/19 at 05:16; Status DC Ceftriaxone Sodium 1 gm/ Sodium Chloride 50 ml @ 100 mls/hr 1X ONCE IV Last administered on 10/26/19at 05:32; Start 10/26/19 at 05:15; Stop 10/26/19 at 05:44; Status DC Azithromycin (Zithromax) 500 mg 1X ONCE PO Last administered on 10/26/19at 05:31; Start 10/26/19 at 05:15; Stop 10/26/19 at 05:16; Status DC Methylprednisolone Sodium Succinate (SOLU-Medrol 125MG VIAL) 125 mg 1X ONCE IV Last administered on 10/26/19at 05:31; Start 10/26/19 at 05:15; Stop 10/26/19 at 05:16; Status DC Sodium Chloride 50 ml @ As Directed STK-MED ONCE .ROUTE ; Start 10/26/19 at 05:04; Stop 10/26/19 at 05:04; Status DC Ceftriaxone Sodium (Rocephin) 1 gm STK-MED ONCE .ROUTE ; Start 10/26/19 at 05:04; Stop 10/26/19 at 05:04; Status DC Nitroglycerin (Nitro-Bid Oint) 1 inch 1X ONCE TP ; Start 10/26/19 at 06:30; Stop 10/26/19 at 06:31; Status DC Heparin Sodium (Porcine) (Heparin Sodium) 5,000 unit 1X ONCE SQ Last administered on 10/26/19at 06:47; Start 10/26/19 at 06:30; Stop 10/26/19 at 06:31; Status DC Ondansetron HCl (Zofran) 4 mg PRN Q4HRS PRN IVP NAUSEA/VOMITING; Start 10/26/19 at 06:15; Stop 10/27/19 at 06:14; Status DC Acetaminophen (Tylenol) 650 mg PRN Q4HRS PRN PO FEVER > 100.3'F; Start 10/26/19 at 06:15; Stop 10/27/19 at 06:14; Status DC Albuterol/ Ipratropium (Duoneb) 3 ml RTQID NEB Last administered on 10/27/19at 09:26; Start 10/26/19 at 08:00; Stop 10/27/19 at 07:59; Status DC Aspirin (Chiquita Aspirin) 81 mg DAILY PO ; Start 10/26/19 at 09:00; Stop 10/26/19 at 15:33; Status DC Nitroglycerin (Nitro-Bid Oint) 1 inch TID TP ; Start 10/26/19 at 14:00 Ceftriaxone Sodium 1 gm/ Sodium Chloride 50 ml @ 100 mls/hr DAILY06 IV Last administered on 10/27/19at 05:41; Start 10/27/19 at 06:00 Azithromycin (Zithromax) 250 mg DAILY PO Last administered on 10/27/19at 09:01; Start 10/27/19 at 09:00 Methylprednisolone Sodium Succinate (SOLU-Medrol 40MG VIAL) 40 mg DAILY IV ; Start 10/27/19 at 09:00; Stop 10/26/19 at 15:23; Status DC Lactobacillus Rhamnosus (Culturelle) 1 cap BID PO Last administered on 10/27/19at 09:01; Start 10/26/19 at 21:00 Lorazepam (Ativan Inj) 0.5 mg PRN Q2HR PRN IVP ANXIETY / AGITATION Last administered on 10/26/19at 20:37; Start 10/26/19 at 08:30 Albuterol Sulfate (Ventolin Hfa Inhaler) 2 puff PRN Q2HRS PRN INH SHORTNESS OF AIR; Start 10/26/19 at 15:30 Methylprednisolone Sodium Succinate (SOLU-Medrol 40MG VIAL) 40 mg Q8HRS IV Last administered on 10/27/19at 05:41; Start 10/26/19 at 15:30 Guaifenesin (Mucinex Er) 600 mg BID PO Last administered on 10/27/19at 09:01; Start 10/26/19 at 21:00 Budesonide (Pulmicort) 0.5 mg RTBID NEB Last administered on 10/27/19at 09:27; Start 10/26/19 at 20:00 Montelukast Sodium (Singulair) 10 mg QHS PO ; Start 10/26/19 at 21:00; Stop 10/26/19 at 15:39; Status DC Aspirin (Aspirin Enteric Coated) 81 mg DAILY PO Last administered on 10/27/19at 09:02; Start 10/27/19 at 09:00 Vitamin D (Vitamin D3) 1,000 unit DAILY PO Last administered on 10/27/19at 09:01; Start 10/27/19 at 09:00 Clopidogrel Bisulfate (Plavix) 75 mg DAILY PO Last administered on 10/26/19at 16:50; Start 10/26/19 at 16:00 Furosemide (Lasix) 20 mg DAILY PO Last administered on 10/27/19at 09:01; Start 10/27/19 at 09:00 Levothyroxine Sodium (Synthroid) 75 mcg DAILY06 PO Last administered on 10/27/19at 05:41; Start 10/27/19 at 06:00 Ascorbic Acid (Vitamin C) 500 mg DAILY PO Last administered on 10/27/19at 09:01; Start 10/27/19 at 09:00 Glucosamine/ Chondroitin (Glucosamine-Chondroitin 500/400mg) 1 cap DAILY PO Last administered on 10/27/19at 09:11; Start 10/27/19 at 09:00 Losartan Potassium (Cozaar) 100 mg DAILY PO ; Start 10/27/19 at 09:00; Stop 10/26/19 at 15:39; Status DC Metoprolol Tartrate (Lopressor) 50 mg BID PO Last administered on 10/27/19at 09:02; Start 10/26/19 at 21:00 Multivitamins/ Calcium (Thera-M Plus) 1 tab DAILY PO Last administered on 10/27/19at 09:01; Start 10/27/19 at 09:00 Coenzyme Q10 (Coenzyme Q10) 200 mg DAILY PO Last administered on 10/27/19at 09:11; Start 10/27/19 at 09:00 Heparin Sodium/ Dextrose 250 ml @ 0 mls/hr CONT PRN IV SEE I/O RECORD; Start 10/26/19 at 15:45; Stop 10/26/19 at 15:54; Status DC Heparin Sodium/ Dextrose 250 ml @ 7.9 mls/hr CONT PRN IV PER PROTOCOL Last administered on 10/26/19at 16:56; Start 10/26/19 at 16:00; Stop 10/26/19 at 23:22; Status DC Heparin Sodium (Porcine) (Heparin Sodium) 3,950 unit 1X ONCE IV Last administered on 10/26/19at 16:51; Start 10/26/19 at 16:30; Stop 10/26/19 at 23:22; Status DC Heparin Sodium (Porcine) (Heparin Sodium) 1,650 unit PRN Q6HRS PRN IV FOR PTT LESS THAN 24 SECONDS; Start 10/26/19 at 16:00; Stop 10/26/19 at 23:22; Status DC Albuterol/ Ipratropium (Duoneb) 3 ml RTQID NEB ; Start 10/27/19 at 12:00 Active Scripts Active Duoneb 0.5-3(2.5) Mg/3 Ml (Albuterol/Ipratropium) 3 Ml Ampul.neb 3 Ml NEB QID 7 Days Reported Furosemide 20 Mg Tablet 20 Mg PO DAILY Co Q-10 (Ubidecarenone) 200 Mg Capsule 1 Cap PO DAILY 30 Days Aspirin Ec (Aspirin) 81 Mg Tablet.dr 81 Mg PO DAILY Lopressor (Metoprolol Tartrate) 100 Mg Tablet 50 Mg PO BID Glucosamine Chondroitin Tab (Gluc Simon/Chondro Simon A/Vit C/Mn) 1 Each Tablet 1 Each PO DAILY LAST DOSE GIVEN: DATE: TODAY TIME: AM NEXT DOSE DUE: DATE: TOMORROW TIME: AM Multivitamins (Multivitamin) 1 Each Tablet 1 Tab PO DAILY LAST DOSE GIVEN: DATE: TODAY TIME: AM NEXT DOSE DUE: DATE: TOMORROW TIME: AM Vitamin D3 (Cholecalciferol (Vitamin D3)) 1,000 Unit Tablet 1 Tab PO DAILY LAST DOSE GIVEN: DATE: TODAY TIME: AM NEXT DOSE DUE: DATE: TOMORROW TIME: AM Jovita-C 500 Mg Tablet (Ascorbate Calcium/Bioflavonoid) 1 Each Tablet 1 Each PO DAILY LAST DOSE GIVEN: DATE: TODAY TIME: AM NEXT DOSE DUE: DATE: TOMORROW TIME: AM Losartan Potassium 100 Mg Tablet 100 Mg PO DAILY LAST DOSE GIVEN: DATE: TODAY TIME: AM NEXT DOSE DUE: DATE: TOMORROW TIME: AM Clopidogrel (Clopidogrel Bisulfate) 75 Mg Tablet 75 Mg PO DAILY LAST DOSE GIVEN: DATE: TODAY TIME: AM NEXT DOSE DUE: DATE: TOMORROW TIME: AM Levothyroxine Sodium 75 Mcg Tablet 75 Mcg PO DAILY07 LAST DOSE GIVEN: DATE: TODAY TIME: AM NEXT DOSE DUE: DATE: TOMORROW TIME: BEFORE BREAKFAST Allergies: Coded Allergies: Jvcftep-Ofm-Cuw Reductase Inhibitor (Verified Allergy, Intermediate, 08/17/19) PSYCHOLOGICAL ROS: No: Hallucinations Eyes: No: Loss of vision HEENT: No: Epistaxis Respiratory: YES: Cough, Shortness of breath; No: Hemoptysis Cardiovascular: yes: Chest Pain Gastrointestinal: No: Vomiting Genitourinary: No: [place]ia Neurological: No: Seizures Skin: No: Rash General: Alert, Oriented X3 HEENT: Atraumatic Lungs: Other (Bilateral scattered crepitations) Heart: Regular rate Abdomen: Soft Extremities: No edema Psych/Mental Status: Mood NL VITALS Vital Signs Date Time Temp Pulse Resp B/P (MAP) Pulse Ox O2 Delivery O2 Flow Rate FiO2 10/27/19 10:54 98.4 82 18 116/61 (79) 99 Nasal Cannula 4.0 Labs Laboratory Tests Test 10/26/19 05:00 10/26/19 05:30 10/26/19 09:12 10/26/19 22:40 White Blood Count 13.8 x10^3/uL (4.0-11.0) Red Blood Count 3.81 x10^6/uL (3.50-5.40) Hemoglobin 10.2 g/dL (12.0-15.5) Hematocrit 32.7 % (36.0-47.0) Mean Corpuscular Volume 86 fL (79-100) Mean Corpuscular Hemoglobin 27 pg (25-35) Mean Corpuscular Hemoglobin Concent 31 g/dL (31-37) Red Cell Distribution Width 16.0 % (11.5-14.5) Platelet Count 419 x10^3/uL (140-400) Neutrophils (%) (Auto) 74 % (31-73) Lymphocytes (%) (Auto) 15 % (24-48) Monocytes (%) (Auto) 8 % (0-9) Eosinophils (%) (Auto) 3 % (0-3) Basophils (%) (Auto) 0 % (0-3) Neutrophils # (Auto) 10.3 x10^3uL (1.8-7.7) Lymphocytes # (Auto) 2.1 x10^3/uL (1.0-4.8) Monocytes # (Auto) 1.1 x10^3/uL (0.0-1.1) Eosinophils # (Auto) 0.4 x10^3/uL (0.0-0.7) Basophils # (Auto) 0.0 x10^3/uL (0.0-0.2) Prothrombin Time < 9.3 SEC (9.4-11.4) Prothromb Time International Ratio 0.9 (0.9-1.1) Activated Partial Thromboplast Time < 21 SEC (23-33) 87 SEC (23-33) D-Dimer (Lindsey) 1.40 mg/L (0.00-0.50) Sodium Level 138 mmol/L (136-145) Potassium Level 4.0 mmol/L (3.5-5.1) Chloride Level 100 mmol/L (98-107) Carbon Dioxide Level 31 mmol/L (21-32) Anion Gap 7 (6-14) Blood Urea Nitrogen 14 mg/dL (7-20) Creatinine 1.2 mg/dL (0.6-1.0) Estimated GFR (Cockcroft-Gault) 43.0 Glucose Level 91 mg/dL (70-99) Calcium Level 9.0 mg/dL (8.5-10.1) Magnesium Level 2.1 mg/dL (1.8-2.4) Total Bilirubin 0.2 mg/dL (0.2-1.0) Direct Bilirubin 0.1 mg/dL (0.0-0.2) Aspartate Amino Transf (AST/SGOT) 29 U/L (15-37) Alanine Aminotransferase (ALT/SGPT) 23 U/L (14-59) Alkaline Phosphatase 48 U/L (46-116) Creatine Kinase 65 U/L (26-192) Troponin I Quantitative 0.666 ng/mL (0-0.055) 1.513 ng/mL (0-0.055) SC-Lgz-J-Type Natriuretic Peptide 483 pg/mL (0-449) Total Protein 6.4 g/dL (6.4-8.2) Albumin 3.2 g/dL (3.4-5.0) Lipase 254 U/L (73-393) Thyroid Stimulating Hormone (TSH) 0.680 uIU/mL (0.358-3.740) Urine Collection Type Unknown Urine Color Yellow Urine Clarity Clear Urine pH 6.0 Urine Specific [place] 1.020 Urine Protein 100 mg/dl (NEG-TRACE) Urine Glucose (UA) Neg mg/dL (NEG) Urine Ketones (Stick) Neg mg/dL (NEG) Urine Blood Trace (NEG) Urine Nitrite Neg (NEG) Urine Bilirubin Neg (NEG) Urine Urobilinogen Dipstick 0.2 mg/dL (0.2 mg/dL) Urine Leukocyte Esterase Trace (NEG) Urine RBC Occ /HPF (0-2) Urine WBC 5-10 /HPF (0-4) Urine Squamous Epithelial Cells Few /LPF Urine Bacteria Few /HPF (0-FEW) Urine Cellular Casts Few /HPF Urine Granular Casts Few /HPF Urine Opiates Screen Neg (NEG) Urine Methadone Screen Neg (NEG) Urine Barbiturates Neg (NEG) Urine Phencyclidine Screen Neg (NEG) Urine Amphetamine/Methamphetamine Neg (NEG) Urine Benzodiazepines Screen Neg (NEG) Urine Cocaine Screen Neg (NEG) Urine Cannabinoids Screen Neg (NEG) Urine Ethyl Alcohol Neg (NEG) Test 10/27/19 06:41 White Blood Count 15.6 x10^3/uL (4.0-11.0) Red Blood Count 2.85 x10^6/uL (3.50-5.40) Hemoglobin 7.8 g/dL (12.0-15.5) Hematocrit 24.2 % (36.0-47.0) Mean Corpuscular Volume 85 fL (79-100) Mean Corpuscular Hemoglobin 27 pg (25-35) Mean Corpuscular Hemoglobin Concent 32 g/dL (31-37) Red Cell Distribution Width 16.1 % (11.5-14.5) Platelet Count 331 x10^3/uL (140-400) Neutrophils (%) (Auto) 83 % (31-73) Lymphocytes (%) (Auto) 11 % (24-48) Monocytes (%) (Auto) 6 % (0-9) Eosinophils (%) (Auto) 0 % (0-3) Basophils (%) (Auto) 0 % (0-3) Neutrophils # (Auto) 12.9 x10^3uL (1.8-7.7) Lymphocytes # (Auto) 1.7 x10^3/uL (1.0-4.8) Monocytes # (Auto) 0.9 x10^3/uL (0.0-1.1) Eosinophils # (Auto) 0.0 x10^3/uL (0.0-0.7) Basophils # (Auto) 0.0 x10^3/uL (0.0-0.2) Sodium Level 135 mmol/L (136-145) Potassium Level 4.1 mmol/L (3.5-5.1) Chloride Level 99 mmol/L (98-107) Carbon Dioxide Level 31 mmol/L (21-32) Anion Gap 5 (6-14) Blood Urea Nitrogen 24 mg/dL (7-20) Creatinine 1.0 mg/dL (0.6-1.0) Estimated GFR (Cockcroft-Gault) 53.1 BUN/Creatinine Ratio 24 (6-20) Glucose Level 139 mg/dL (70-99) Calcium Level 8.7 mg/dL (8.5-10.1) Total Bilirubin 0.2 mg/dL (0.2-1.0) Aspartate Amino Transf (AST/SGOT) 29 U/L (15-37) Alanine Aminotransferase (ALT/SGPT) 24 U/L (14-59) Alkaline Phosphatase 37 U/L (46-116) Total Protein 5.6 g/dL (6.4-8.2) Albumin 2.8 g/dL (3.4-5.0) Albumin/Globulin Ratio 1.0 (1.0-1.7) Assessment/Plan 1. Non-STEMI, most probably type II/demand ischemia secondary to COPD exacerbation. Troponin level peaked at 1.5. Patient has history of coronary artery disease s/p multivessel PCI/stents placement but recent cardiac catheterization 08/19/19 showed patent LAD/LCx/RCA stents without any lesions needing intervention. Chest pain on presentation probably secondary to bronchospasm. She is currently chest pain-free. Patient was placed on heparin infusion yesterday but was discontinued after she had a fall overnight. Stop aspirin secondary to decreasing hemoglobin and continue Plavix. Continue current secondary prevention measures. 2. Hypertension: Controlled 3. Acute respiratory failure secondary to acute COPD exacerbation: Improved since admission. Continue current treatment per IM. 4. Hyperlipidemia: On Repatha 5. PAD, clinically stable Thank you for your consultation JACE FABIAN MD Oct 27, 2019 12:50
--- NOTE | 2019-10-27 13:26 | PN ---
DATE: 10/27/2019 SUBJECTIVE: The patient is resting, slightly propped up in bed, clearly much less distress than yesterday. She apparently had attempted to walk to the bathroom on her own without asking for help and fell and hit her head and knees; however, CT scan of the head was unremarkable, showed no acute intracranial process, right frontal scalp swelling, mild cerebral volume loss, mild chronic small vessel ischemic disease and x-ray of the knee showed mild tricompartmental joint space narrowing. There is no joint effusion, chondrocalcinosis of the menisci nonspecific, but often associated with calcium pyrophosphate arthropathy. She does have prepatellar soft tissue swelling. PHYSICAL EXAMINATION: GENERAL: When I saw her this afternoon, she was resting, slightly propped up in bed, in no apparent respiratory distress, pale, but no jaundice or cyanosis. No lymphadenopathy, no thyromegaly. No jugular venous distention. No lower limb edema. VITAL SIGNS: Her heart rate was 82, blood pressure was 116/61, temperature was 98.4, respiratory rate was 18 and oxygen saturation was 99% on 4 liters of oxygen. HEAD, EYES, EARS, NOSE AND THROAT: Showed normocephalic, atraumatic. NECK: Supple. CARDIAC: Normal first and second heart sounds. No gallop, rub or murmur. CHEST: Showed central trachea, equally reduced expansion, reduced air entry, vesicular sounds. No crepitation or rhonchi. ABDOMEN: Distended, soft, nontender. No guarding or rigidity. No organomegaly. All hernial orifices intact. Bowel sounds normal. NEUROLOGIC: She is awake, alert, responding appropriately. All cranial nerves intact. She moves extremities without difficulty. Her intake over the last 24 hours and output are incompletely recorded. LABORATORY DATA: Her lab work this morning showed a white cell count of 15,600, hemoglobin 7.8, hematocrit 24, MCV 85 and platelet count of 331,000. Her serum sodium was 135, potassium 4.1, chloride 99, bicarbonate 31, anion gap of 5, BUN 24, creatinine 1, estimated GFR was 53 mL per minute. Her glucose was 139, calcium was 8.7. Total bilirubin, AST, ALT, alkaline phosphatase were normal. Her total protein was 5.6, albumin 2.8. Her TSH was 0.680. ASSESSMENT: 1. The patient was admitted with worsening shortness of breath due to chronic obstructive pulmonary disease exacerbation. Denied any chest pain; however, troponin was slightly elevated, for which she was started on heparin as per the cosmetic surgeon's recommendation. However, unfortunately, she fell last night, hitting her head and her right knee and her heparin, aspirin are all discontinued. 2. Community-acquired pneumonia for which she was started on IV ceftriaxone and Zithromax. 3. Other medical problems include [id number] diastolic congestive heart failure for which she is on Lasix and hypothyroidism for which she is on Synthroid. PLAN: 1. Continue with Zithromax and Rocephin. 2. Continue with bronchodilators and Solu-Medrol. Continue with Lasix. We will consult Physical and Occupational Therapy. Monitor her lab work and her response on a daily basis and will be discharged once she is stabilized. INDU YANES MD DR: ODILIA/victorino JOB#: [id number] / [id number]
[2019-10-27] MEDS: CALCIUM CARBONATE 500 MG TAB.CHEW PO PRN (14:39)
[2019-10-27 15:07] LABS: % BANDS 2 % (0-9); % LYMPHS 8 % (24-48); % MONOS 4 % (0-10); % SEGS 86 % (35-66); PLT ESTIMATE ADEQUATE (ADEQUATE)
[2019-10-27 15:41] VITALS: BP 136/74
[2019-10-27 19:49] VITALS: BP 124/66
[2019-10-27 22:55] VITALS: BP 121/74
[2019-10-28] MEDS: IPRATRPIUM/ALBUTEROL 0.5/2.5MG 3 ML NEBU. NEB SCH ×4 (05:02→21:02)
[2019-10-28] MEDS: LEVOTHYROXINE 75 MCG TABLET PO SCH (05:36)
[2019-10-28] MEDS: methylPREDNISolone SOD SUCC PF 40 MG/ML VIAL. IV SCH ×2 (05:36→18:13)
[2019-10-28 05:44] VITALS: BP 125/66
[2019-10-28 06:13] LABS: HEMATOCRIT 23.8 % (36.0-47.0); HEMOGLOBIN 7.5 g/dL (12.0-15.5); RED BLOOD COUNT 2.77 x10^6/uL (3.50-5.40); RED CELL DISTRIBUTION WIDTH 16.3 % (11.5-14.5); WHITE BLOOD COUNT 15.5 x10^3/uL (4.0-11.0)
[2019-10-28 06:26] LABS: CALCIUM 8.6 mg/dL (8.5-10.1); CREATININE 0.9 mg/dL (0.6-1.0); GFR 59.9; POTASSIUM 4.2 mmol/L (3.5-5.1)
--- NOTE | 2019-10-28 07:57 | PDOC ---
JUAN BARBOZA CERTIFIED PEDIATRIC NURSE PRACTITIONER 10/28/19 0757: CARDIO Progress Notes Date & Time Date of Service DATE: 10/28/19 TIME: 07:50 Time of Evaluation 07:50 Subjective Notes CP free Vitals Vitals Vital Signs Date Time Temp Pulse Resp B/P (MAP) Pulse Ox O2 Delivery O2 Flow Rate FiO2 10/28/19 05:44 98.2 90 20 125/66 (85) 95 Nasal Cannula 4.0 Weight Weight [ ] Input and Output I.O. Intake and Output 10/28/19 07:00 Intake Total 1390 ml Balance 1390 ml Intake Oral 1340 ml IV Total 50 ml # Voids 3 # Bowel Movements 2 Laboratory Labs Laboratory Tests Test 10/26/19 09:12 10/26/19 22:40 10/27/19 06:41 10/28/19 05:54 Troponin I Quantitative 1.513 ng/mL (0-0.055) Activated Partial Thromboplast Time 87 SEC (23-33) White Blood Count 15.6 x10^3/uL (4.0-11.0) 15.5 x10^3/uL (4.0-11.0) Red Blood Count 2.85 x10^6/uL (3.50-5.40) 2.77 x10^6/uL (3.50-5.40) Hemoglobin 7.8 g/dL (12.0-15.5) 7.5 g/dL (12.0-15.5) Hematocrit 24.2 % (36.0-47.0) 23.8 % (36.0-47.0) Mean Corpuscular Volume 85 fL (79-100) 86 fL (79-100) Mean Corpuscular Hemoglobin 27 pg (25-35) 27 pg (25-35) Mean Corpuscular Hemoglobin Concent 32 g/dL (31-37) 31 g/dL (31-37) Red Cell Distribution Width 16.1 % (11.5-14.5) 16.3 % (11.5-14.5) Platelet Count 331 x10^3/uL (140-400) 350 x10^3/uL (140-400) Neutrophils (%) (Auto) 83 % (31-73) Lymphocytes (%) (Auto) 11 % (24-48) Monocytes (%) (Auto) 6 % (0-9) Eosinophils (%) (Auto) 0 % (0-3) Basophils (%) (Auto) 0 % (0-3) Neutrophils # (Auto) 12.9 x10^3uL (1.8-7.7) Lymphocytes # (Auto) 1.7 x10^3/uL (1.0-4.8) Monocytes # (Auto) 0.9 x10^3/uL (0.0-1.1) Eosinophils # (Auto) 0.0 x10^3/uL (0.0-0.7) Basophils # (Auto) 0.0 x10^3/uL (0.0-0.2) Segmented Neutrophils % 86 % (35-66) Band Neutrophils % 2 % (0-9) Lymphocytes % 8 % (24-48) Monocytes % 4 % (0-10) Platelet Estimate Adequate (ADEQUATE) Sodium Level 135 mmol/L (136-145) 135 mmol/L (136-145) Potassium Level 4.1 mmol/L (3.5-5.1) 4.2 mmol/L (3.5-5.1) Chloride Level 99 mmol/L (98-107) 100 mmol/L (98-107) Carbon Dioxide Level 31 mmol/L (21-32) 30 mmol/L (21-32) Anion Gap 5 (6-14) 5 (6-14) Blood Urea Nitrogen 24 mg/dL (7-20) 23 mg/dL (7-20) Creatinine 1.0 mg/dL (0.6-1.0) 0.9 mg/dL (0.6-1.0) Estimated GFR (Cockcroft-Gault) 53.1 59.9 BUN/Creatinine Ratio 24 (6-20) Glucose Level 139 mg/dL (70-99) 128 mg/dL (70-99) Calcium Level 8.7 mg/dL (8.5-10.1) 8.6 mg/dL (8.5-10.1) Total Bilirubin 0.2 mg/dL (0.2-1.0) Aspartate Amino Transf (AST/SGOT) 29 U/L (15-37) Alanine Aminotransferase (ALT/SGPT) 24 U/L (14-59) Alkaline Phosphatase 37 U/L (46-116) Total Protein 5.6 g/dL (6.4-8.2) Albumin 2.8 g/dL (3.4-5.0) Albumin/Globulin Ratio 1.0 (1.0-1.7) Microbiology Micro Microbiology 10/26/19 Blood Culture - Preliminary, Resulted NO GROWTH AFTER 1 DAY... 10/26/19 Urine Culture - Final, Complete Physical Exams HEENT: Neck Supple W Full Motion Chest: Symmetric Heart: S1S2, RRR Abdomen: Soft N/T Extremities: No Edema Neurology: alert, oriented, follow commands Assessment Assessment 1. Acute respiratory failure with AE COPD 2. NSTEMI; trop peak 1.5. Most probably type II, demand ischemia 3. CAD s/p multi-vessel PCI/stents. [facility] 08/19/19 with patent stents in LAD, LCx and RCA with moderate stenosis involving the mid to distal segment of LAD that was insignificant based on IFR measurement. 4. Hypertension: Controlled 5. Hyperlipidemia: On Repatha 6. PAD, clinically stable 7. Anemia Recommendation Secondary prevention measures Continue Plavix. ASA discontinued due to downtrend hgb. Outpatient echo Supportive care KIRTI ALVARADO MD 10/29/19 1523: CARDIO Progress Notes Plan Plan Late entry for 10/28/2019 Patient seen and examined. Agree with above nurse practitioner note. Continue supportive care treatment of COPD. We will repeat cardiac enzymes. Thank you for this consultation. JUAN BARBOZA APRN Oct 28, 2019 07:57 KIRTI ALVARADO MD Oct 29, 2019 15:23
[2019-10-28] MEDS: CALCIUM CARBONATE 500 MG TAB.CHEW PO PRN (08:12)
[2019-10-28] MEDS: LACTOBACILLUS RHAMNOSUS GG 1 CAPSULE. PO SCH ×2 (08:13→20:08)
[2019-10-28] MEDS: MULTIVITAMIN with MINERAL TABLET. PO SCH (08:13)
[2019-10-28] MEDS: FUROSEMIDE 20 MG TABLET PO SCH (08:13)
[2019-10-28] MEDS: AZITHROMYCIN 250 MG TABLET. PO SCH (08:13)
[2019-10-28] MEDS: ASCORBIC ACID 500 MG TABLET PO SCH (08:13)
[2019-10-28] MEDS: BUDESONIDE 0.5 MG/2 ML NEBU NEB SCH ×2 (08:14→21:02)
[2019-10-28] MEDS: METOPROLOL TART IMMED RELEASE 50 MG TABLET PO SCH ×2 (08:14→20:08)
[2019-10-28] MEDS: GLUCOSAMINE/CHOND 500/400MG CAPSULE PO SCH (08:14)
[2019-10-28] MEDS: CHOLECALCIFEROL (VITAMIN D3) 1,000 UNIT TABLET PO SCH (08:14)
[2019-10-28] MEDS: UBIDECARENONE 50 MG CAPSULE. PO SCH (08:14)
[2019-10-28] MEDS: CLOPIDOGREL BISULFATE 75 MG TABLET PO SCH (08:14)
[2019-10-28 10:23] VITALS: BP 111/67
--- NOTE | 2019-10-28 13:07 | PN ---
DATE: 10/28/2019 SUBJECTIVE: The patient is resting, almost flat in bed, sleeping comfortably, in no apparent distress. She denied any chest pain or shortness of breath. Denied any cough, phlegm or hemoptysis. She fell while on heparin and sustained multiple bruises on her forehead, right side of the face, right shoulder and right knee and right leg. Her H and H have dropped from 10 and 32 down to 7.5 and 24. PHYSICAL EXAMINATION: GENERAL: When I examined her, she looked pale, but no jaundice, cyanosis or thyromegaly. No jugular venous distention. No limb edema. VITAL SIGNS: Her heart rate was 78, blood pressure was 111/67, temperature was 98, respiratory rate 24 and oxygen saturation was 100% on 4 liters of oxygen. HEAD, EYES, EARS, NOSE AND THROAT: Showed normocephalic, atraumatic. NECK: Supple. HEART: Showed normal first and second heart sounds. No gallop, rub or murmur. CHEST: Showed central trachea, equally reduced expansion, reduced air entry, vesicular breath sounds. I could not really appreciate any crepitation or rhonchi. ABDOMEN: Distended, soft, nontender. NEUROLOGICALLY: She is awake, alert, responding appropriately. All cranial nerves intact. She moves extremities without difficulty. She ambulates with a walker and she walked with physical therapy. Her intake over the last 24 hours was 514, output was recorded. LABORATORY DATA: As of this morning, her white cell count was 15,500, hemoglobin 7.5, hematocrit 24, MCV 86 and platelet count 350,000. Her chemistry showed a serum sodium 135, potassium 4.2, chloride 100, bicarbonate 30, anion gap of 5, BUN 23, creatinine was 0.9. Estimated GFR was 60 mL per minute. Her glucose 128, calcium was 8.6. Her prothrombin time, INR and aPTT were normal. Urinalysis was unremarkable. Toxic screen was negative. Her blood cultures showed no growth after 2 days and her urine culture showed no growth. ASSESSMENT: 1. Acute respiratory failure. 2. Chronic obstructive pulmonary disease exacerbation. 3. Questionable community-acquired pneumonia. 4. Non-ST segment elevation myocardial infarction, troponin peaked at 1.5, most probably type 2 demand ischemia. Coronary artery disease, status post multivessel percutaneous coronary intervention and stent deployment. Left heart catheterization on 08/19/2019 showed patent stents to left anterior descending, left circumflex and right coronary artery with moderate stenosis involving the mid to distal segment of left anterior descending that was nonsignificant. 5. Hypertension, well controlled. 6. Hyperlipidemia, for which she is on Repatha. 7. Peripheral arterial disease, stable. 8. Acute blood loss anemia. Plan is to cut down her steroids to twice a day. Continue with IV ceftriaxone and Zithromax and we will hopefully discharge her home tomorrow. Obviously, if her H and H dropped down further, we might be able to transfuse her before she can go home. INDU YANES MD DR: ODILIA/victorino JOB#: [id number] / [id number]
[2019-10-28 15:27] VITALS: BP 125/68
--- NOTE | 2019-10-28 18:22 | NUR ---
PT bed alarm on at all times today. Pt calling for help when needed. Pt is able to verbalize understanding of poc. PT family request we check pt heme stool. Will continue to monitor. Enriqueta MAYES
[2019-10-28 18:50] VITALS: BP 128/65
[2019-10-28] MEDS: CEFDINIR 300 MG CAPSULE PO SCH (20:08)
[2019-10-28 23:09] VITALS: BP 157/83
[2019-10-29] MEDS: IPRATRPIUM/ALBUTEROL 0.5/2.5MG 3 ML NEBU. NEB SCH ×3 (05:20→16:00)
[2019-10-29] MEDS: LEVOTHYROXINE 75 MCG TABLET PO SCH (05:26)
[2019-10-29] MEDS: methylPREDNISolone SOD SUCC PF 40 MG/ML VIAL. IV SCH (05:26)
[2019-10-29 06:07] VITALS: BP 134/72
--- NOTE | 2019-10-29 06:08 | NUR ---
Shift Note: Pt is a/ox4, VSS, no c/o pain or n/v at this time, pt continues to require 4liters of oxygen (as she uses at home), pt prefers nebulizer treatments over inhaler (per pt nebulizer treatments last longer), pt continues to be a fall risk d/t SOA (pt reminded to use call light when getting up to BSC or to chair, pt anticipating discharging to home today.
[2019-10-29 06:16] LABS: HEMATOCRIT 25.9 % (36.0-47.0); RED BLOOD COUNT 2.95 x10^6/uL (3.50-5.40); RED CELL DISTRIBUTION WIDTH 16.2 % (11.5-14.5); WHITE BLOOD COUNT 16.8 x10^3/uL (4.0-11.0)
[2019-10-29 06:24] LABS: CALCIUM 8.7 mg/dL (8.5-10.1); CREATININE 0.9 mg/dL (0.6-1.0); GFR 59.9; POTASSIUM 4.2 mmol/L (3.5-5.1)
--- NOTE | 2019-10-29 07:37 | NUR ---
NURSING NOTE CONSULT SEEN CONSULT ORDER FOR DR ARMSTRONG FROM 10/26/19, DO NOT SEE THAT REQUEST WAS FAXED UP. FAXED CONSULT REQUEST FOR DR ARMSTRONG FOR SEVER ANXIETY. SUGEY GARCIA.
[2019-10-29] MEDS: CEFDINIR 300 MG CAPSULE PO SCH (08:14)
[2019-10-29] MEDS: LACTOBACILLUS RHAMNOSUS GG 1 CAPSULE. PO SCH (08:14)
[2019-10-29] MEDS: METOPROLOL TART IMMED RELEASE 50 MG TABLET PO SCH (08:14)
[2019-10-29] MEDS: CHOLECALCIFEROL (VITAMIN D3) 1,000 UNIT TABLET PO SCH (08:14)
[2019-10-29] MEDS: AZITHROMYCIN 250 MG TABLET. PO SCH (08:14)
[2019-10-29] MEDS: ASCORBIC ACID 500 MG TABLET PO SCH (08:14)
[2019-10-29] MEDS: CLOPIDOGREL BISULFATE 75 MG TABLET PO SCH (08:14)
[2019-10-29] MEDS: MULTIVITAMIN with MINERAL TABLET. PO SCH (08:14)
[2019-10-29] MEDS: FUROSEMIDE 20 MG TABLET PO SCH (08:14)
[2019-10-29] MEDS: UBIDECARENONE 50 MG CAPSULE. PO SCH (08:19)
[2019-10-29] MEDS: GLUCOSAMINE/CHOND 500/400MG CAPSULE PO SCH (08:19)
--- NOTE | 2019-10-29 08:47 | PDOC ---
JUAN BARBOZA CORN SHREDDER 10/29/19 0847: CARDIO Progress Notes Date & Time Date of Service DATE: 10/29/19 TIME: 08:45 Time of Evaluation 08:45 Subjective Notes CP free Vitals Vitals Vital Signs Date Time Temp Pulse Resp B/P (MAP) Pulse Ox O2 Delivery O2 Flow Rate FiO2 10/29/19 08:23 Nasal Cannula 4.0 10/29/19 08:14 63 134/72 10/29/19 06:07 97.5 18 100 Weight Weight [ ] Input and Output I.O. Intake and Output 10/29/19 07:00 Intake Total 220 ml Balance 220 ml Intake Oral 220 ml # Voids 3 # Bowel Movements 2 Laboratory Labs Laboratory Tests Test 10/28/19 05:54 10/29/19 05:59 White Blood Count 15.5 x10^3/uL (4.0-11.0) 16.8 x10^3/uL (4.0-11.0) Red Blood Count 2.77 x10^6/uL (3.50-5.40) 2.95 x10^6/uL (3.50-5.40) Hemoglobin 7.5 g/dL (12.0-15.5) 8.0 g/dL (12.0-15.5) Hematocrit 23.8 % (36.0-47.0) 25.9 % (36.0-47.0) Mean Corpuscular Volume 86 fL (79-100) 88 fL (79-100) Mean Corpuscular Hemoglobin 27 pg (25-35) 27 pg (25-35) Mean Corpuscular Hemoglobin Concent 31 g/dL (31-37) 31 g/dL (31-37) Red Cell Distribution Width 16.3 % (11.5-14.5) 16.2 % (11.5-14.5) Platelet Count 350 x10^3/uL (140-400) 367 x10^3/uL (140-400) Sodium Level 135 mmol/L (136-145) 138 mmol/L (136-145) Potassium Level 4.2 mmol/L (3.5-5.1) 4.2 mmol/L (3.5-5.1) Chloride Level 100 mmol/L (98-107) 101 mmol/L (98-107) Carbon Dioxide Level 30 mmol/L (21-32) 35 mmol/L (21-32) Anion Gap 5 (6-14) 2 (6-14) Blood Urea Nitrogen 23 mg/dL (7-20) 22 mg/dL (7-20) Creatinine 0.9 mg/dL (0.6-1.0) 0.9 mg/dL (0.6-1.0) Estimated GFR (Cockcroft-Gault) 59.9 59.9 Glucose Level 128 mg/dL (70-99) 115 mg/dL (70-99) Calcium Level 8.6 mg/dL (8.5-10.1) 8.7 mg/dL (8.5-10.1) Microbiology Micro Microbiology 10/26/19 Blood Culture - Preliminary, Resulted NO GROWTH AFTER 2 DAYS... 10/26/19 Urine Culture - Final, Complete Physical Exams HEENT: Neck Supple W Full Motion Chest: Symmetric Lungs: Clear to Auscultation Heart: S1S2, RRR Abdomen: Soft N/T Extremities: No Edema Neurology: alert, oriented, follow commands Assessment Assessment 1. Acute respiratory failure with AE COPD 2. NSTEMI; trop peak 1.5. Most probably type II, demand ischemia 3. CAD s/p multi-vessel PCI/stents. [facility] 08/19/19 with patent stents in LAD, LCx and RCA with moderate stenosis involving the mid to distal segment of LAD that was insignificant based on IFR measurement. 4. Hypertension: Controlled 5. Hyperlipidemia: On Repatha 6. PAD, clinically stable 7. Anemia; no obvious bleeding. Hgb stable today Recommendation Repeat trop to note downtrend Secondary prevention measures Continue Plavix. ASA discontinued due to downtrend hgb. Outpatient echocardiogram Supportive care KIRTI ALVARADO MD 10/29/19 1525: CARDIO Progress Notes Plan Plan Patient seen and examined. Agree with above nurse practitioner note. Supportive care. Okay to discharge from cardiac standpoint. JUAN BARBOZA APRN Oct 29, 2019 08:47 KIRTI ALVARADO MD Oct 29, 2019 15:25
[2019-10-29] MEDS: BUDESONIDE 0.5 MG/2 ML NEBU NEB SCH (09:04)
[2019-10-29 10:21] VITALS: BP 130/72
[2019-10-29] MEDS ORDERED: IRON SUCROSE COMPLEX 200 MG in IV NORMAL SALINE 100ML 100 ML IV ONE (14:15)
[2019-10-29] MEDS ORDERED: FERUMOXYTOL for NON-DIALYSIS 510 MG in IV NORMAL SALINE 100ML 100 ML IV ONE (14:15)
[2019-10-29] MEDS ORDERED: AZIT250T PO (14:22)
[2019-10-29] MEDS ORDERED: CEFD300C PO (14:22)
[2019-10-29] MEDS ORDERED: PRED20TA PO (14:24)
[2019-10-29] MEDS ORDERED: ALBU2.5V8 IH (14:24)
[2019-10-29] MEDS ORDERED: LORA0.5T21 PO (14:24)
[2019-10-29 14:50] LABS: FECAL OB PT POSITIVE (NEG)
--- NOTE | 2019-10-29 16:09 | NUR ---
NURSING NOTE SCRIPTS PER FAMILY REQUEST TO CALL IN PRESCRIPTIONS, PT HAS 9 DISCHARGE PRESCRIPTIONS, CALLED JESSIE, ERNIE THAKKAR, UNABLE TO CALL THEM IN DUE TO HX OF PROBLEM WITH THIS PTS MEDICATIONS. PT MUST HAND CARRY SCRIPT. SUGEY GARCIA.
--- NOTE | 2019-10-29 16:33 | NUR ---
NURSING NOTE DISCHARGE PT DISCHARGED HOME VIA WHEELCHAIR, WRITTEN AND VERBAL DISCHARGE INSTRUCTIONS GIVEN TO PT, FOLLOW UP INFORMATION GIVEN TO PT FOR PCP AND CARDIOLOGY. NO COMPLICATIONS. SUGEY GARCIA.
== END 2019-10-29 16:37 | disposition home or self-care (01) | DRG 871 ==
LOC: ER 04:27 → 1 SOUTH 06:00 → OBSVTOIN 07:48
PROVIDERS: ADMIT Internal Medicine; ATTEND Internal Medicine
DX: A41.9 Sepsis, unspecified organism (principal); J18.9 Pneumonia, unspecified organism; J96.00 Acute respiratory failure, unspecified whether with hypoxia or hypercapnia; I21.A1 Myocardial infarction type 2; I50.33 Acute on chronic diastolic (congestive) heart failure; J44.1 Chronic obstructive pulmonary disease with (acute) exacerbation; J44.0 Chronic obstructive pulmonary disease with (acute) lower respiratory infection; D62 Acute posthemorrhagic anemia; I13.0 Hypertensive heart and chronic kidney disease with heart failure and stage 1 through stage 4 chronic kidney disease, or unspecified chronic kidney disease; F32.9 Major depressive disorder, single episode, unspecified; F41.9 Anxiety disorder, unspecified; E78.5 Hyperlipidemia, unspecified; E03.9 Hypothyroidism, unspecified; M19.012 Primary osteoarthritis, left shoulder; M19.011 Primary osteoarthritis, right shoulder; I73.9 Peripheral vascular disease, unspecified; I25.5 Ischemic cardiomyopathy; I25.10 Atherosclerotic heart disease of native coronary artery without angina pectoris; S00.83XA Contusion of other part of head, initial encounter; S40.011A Contusion of right shoulder, initial encounter; S80.01XA Contusion of right knee, initial encounter; N18.9 Chronic kidney disease, unspecified; W18.39XA Other fall on same level, initial encounter; M19.90 Unspecified osteoarthritis, unspecified site; Z79.899 Other long term (current) drug therapy; Z95.5 Presence of coronary angioplasty implant and graft; I25.2 Old myocardial infarction; Z87.891 Personal history of nicotine dependence; Z90.89 Acquired absence of other organs; Z87.442 Personal history of urinary calculi; Y93.89 Activity, other specified; Z88.8 Allergy status to other drugs, medicaments and biological substances; Z99.81 Dependence on supplemental oxygen; Y92.89 Other specified places as the place of occurrence of the external cause; Y99.8 Other external cause status; Z79.02 Long term (current) use of antithrombotics/antiplatelets; Z82.0 Family history of epilepsy and other diseases of the nervous system; Z82.49 Family history of ischemic heart disease and other diseases of the circulatory system
CPT/HCPCS: 36415; 70450; 71045; 73562; 80048; 80053; 80076; 80307; 81001; 82274; 82550; 83690; 83735; 83880; 84443; 84484; 85007; 85025; 85027; 85379; 85610; 85730; 87040; 87086; 93005; 94640; 94760; 96365; 96372; 96375; G0378; G0379; J0456; J0696; J1644; J1756; J2060; J2920; J2930; J7120; J7613; 99285-25

== ENCOUNTER → 2020-01-10 | Outpatient (CLI) | payer MEDICARE ==
[~2020-01-10] MED LIST changes: +ALBU2.5V8 IH; +ASPI-889 PO; +CEFD300C PO; +FURO20TA3 PO; +LORA0.5T21 PO; +METO-313 PO; +UBID200C7 PO
== END | disposition home or self-care (01) ==
LOC: LAB 10:39
PROVIDERS: ATTEND Nurse Anesthetist, Certified Registered
DX: Z20.828 Contact with and (suspected) exposure to other viral communicable diseases (principal)
CPT/HCPCS: U0003-CS

== ENCOUNTER → 2020-01-14 | Day surgery (SDC) | payer MEDICARE ==
[~2020-01-14] MED LIST changes: +BALANCED SALT IRRIG OPHTH SOLN 15 ML BOTTLE. IRR ONE; +CATARACT OPHTH GEL 0.5 ML SYRINGE. OD ONE; +CHONDROIT-SOD-HYALURONATE KIT. OD ONE; +EPINEPHrine AMPULE 0.5 MG in BALANCED SALT IRRIG SOLN PLUS 500 ML IO ONE; +ERYTHROMYCIN 0.5% OPHTH OINTMENT 1GM TUBE. OD ONE; +HYALURONIDASE 75UNITS in LIDOCAINE 2% PF OPHTH 10 ML SYRINGE. OD ONE; +HYALURONIDASE 75UNITS in LIDOCAINE 2% PF OPHTH 10 ML SYRINGE. ONE; +IPRATRPIUM/ALBUTEROL 0.5/2.5MG 3 ML NEBU. NEB PRN; +IV RINGERS SOLUTION,LACTATED 1,000 ML IV SCH; +KETOROLAC TROMETHAMINE 0.5% OPHTH SOLUTION BOTTLE. OD SCH; +KETOROLAC TROMETHAMINE 0.5% OPHTH SOLUTION BOTTLE. ONE; +MIDAZOLAM HCL PF 2 MG/2 ML VIAL. IV ONE; +MOXIFLOXACIN 0.5% OPHTH SOLUTION 3ML BOTTLE. OD SCH; +POVIDONE-IODINE 5% OPHTH SOLUTION 30ML BOTTLE. OD ONE; +TETRACAINE 0.5% OPHTH SOLUTION 4ML BOTTLE. OD ONE; +TETRACAINE 0.5% OPHTH SOLUTION 4ML BOTTLE. OU ONE; +prednisoLONE ACETATE 1% OPHTH SUSPENSION 5ML BOTTLE. OD SCH; +prednisoLONE ACETATE 1% OPHTH SUSPENSION 5ML BOTTLE. ONE
[2020-01-14] MEDS: MOXIFLOXACIN 0.5% OPHTH SOLUTION 3ML BOTTLE. OD SCH ×3 (07:25→07:35)
--- NOTE | 2020-01-14 08:53 | PDOC4 ---
Phaco/Toric IOL/OD Date of Procedure: Jan 14, 2020 Preoperative Diagnosis: 1. Senile Cataract, OD 2. Corneal astigmatism, OD Postoperative Diagnosis: 1. Senile Cataract, OD 2. Corneal astigmatism, OD Anesthesia: Local with monitored anesthesia care Surgeon: Josephine Mcgrath D.O. Procedure: Phacoemulsification with toric intraocular lens implant, OD Findings: 1. Senile Cataract, OD 2. Corneal astigmatism, OD Indications: Worsening vision interfering with patient's lifestyle Narrative: After discussing the risks, complications and alternatives, including but not limited to loss of vision, infection, bleeding, swelling, anesthetic reaction, capsule rupture with vitreous loss, etc., the patient was given a topical anesthetic in the eye. The eye was then marked at 3, 6 and 9:00 limbus. Periocular anesthesia was given and a Honan balloon was applied for 10 minutes. The patient was transferred to the main operating room and was prepped and draped in the usual sterile fashion and positioned under the microscope. A lid speculum was placed. A temporal clear corneal incision was made with a keratome and viscoelastic was injected into the end anterior chamber. A side port incision was made. A 5.5 mm diameter corneal aleisha was placed. A continuous tear capsulorrhexis was performed, and hydrodissection was accomplished with balanced salt solution. The phacoemulsification needle was placed in the eye and the nucleus was signal supplied. The remaining cortical material was removed with the irrigation and aspiration apparatus. The capsule was polished as needed. The posterior capsule was noted to be clean and intact. Viscoelastic was injected into the eye inflating the capsular bag. The cornea was marked at the appropriate Stanford for toric IOL implantation. An intraocular lens was injected into the eye, and folding as desired and was positioned in the capsular bag. The viscoelastic was aspirated from the eye and the toric IOL was positioned at the appropriate Stanford. The wound edges were hydrated with balanced salt solution and there were no leaks. Viscoelastic was injected over the limbal incisions. Antibiotic and steroids were placed on the eye. The lid speculum was removed and a patch and Saravia shield were applied. There were no complications and the patient was taken to the PACU in good condition. JOSEPHINE MCGRATH DO Jan 14, 2020 08:53
[2020-01-14 09:20] VITALS: BP 136/66
== END | disposition home or self-care (01) ==
LOC: SURG 07:00
PROVIDERS: ATTEND Ophthalmology
DX: H25.11 Age-related nuclear cataract, right eye (principal); H52.201 Unspecified astigmatism, right eye; I10 Essential (primary) hypertension; J44.9 Chronic obstructive pulmonary disease, unspecified; E03.9 Hypothyroidism, unspecified; Z87.891 Personal history of nicotine dependence; Z79.899 Other long term (current) drug therapy; Z88.8 Allergy status to other drugs, medicaments and biological substances; Z98.890 Other specified postprocedural states; Z79.82 Long term (current) use of aspirin; Z95.5 Presence of coronary angioplasty implant and graft; Z79.84 Long term (current) use of oral hypoglycemic drugs
CPT/HCPCS: 66984; J0171; V2787

== ENCOUNTER → 2020-01-24 | Outpatient (CLI) | payer MEDICARE ==
[2020-01-14 09:20] VITALS: BP 136/66
[~2020-01-24] MED LIST changes: -BALANCED SALT IRRIG OPHTH SOLN 15 ML BOTTLE. IRR ONE; -CATARACT OPHTH GEL 0.5 ML SYRINGE. OD ONE; -CHONDROIT-SOD-HYALURONATE KIT. OD ONE; -EPINEPHrine AMPULE 0.5 MG in BALANCED SALT IRRIG SOLN PLUS 500 ML IO ONE; -ERYTHROMYCIN 0.5% OPHTH OINTMENT 1GM TUBE. OD ONE; -HYALURONIDASE 75UNITS in LIDOCAINE 2% PF OPHTH 10 ML SYRINGE. OD ONE; -HYALURONIDASE 75UNITS in LIDOCAINE 2% PF OPHTH 10 ML SYRINGE. ONE; -IPRATRPIUM/ALBUTEROL 0.5/2.5MG 3 ML NEBU. NEB PRN; -IV RINGERS SOLUTION,LACTATED 1,000 ML IV SCH; -KETOROLAC TROMETHAMINE 0.5% OPHTH SOLUTION BOTTLE. OD SCH; -KETOROLAC TROMETHAMINE 0.5% OPHTH SOLUTION BOTTLE. ONE; -MIDAZOLAM HCL PF 2 MG/2 ML VIAL. IV ONE; -MOXIFLOXACIN 0.5% OPHTH SOLUTION 3ML BOTTLE. OD SCH; -POVIDONE-IODINE 5% OPHTH SOLUTION 30ML BOTTLE. OD ONE; -TETRACAINE 0.5% OPHTH SOLUTION 4ML BOTTLE. OD ONE; -TETRACAINE 0.5% OPHTH SOLUTION 4ML BOTTLE. OU ONE; -prednisoLONE ACETATE 1% OPHTH SUSPENSION 5ML BOTTLE. OD SCH; -prednisoLONE ACETATE 1% OPHTH SUSPENSION 5ML BOTTLE. ONE
== END | disposition home or self-care (01) ==
LOC: LAB 15:00
PROVIDERS: ATTEND Registered Nurse
DX: Z01.812 Encounter for preprocedural laboratory examination (principal); H26.8 Other specified cataract; Z20.828 Contact with and (suspected) exposure to other viral communicable diseases
CPT/HCPCS: U0003-CS

== ENCOUNTER → 2020-01-28 | Day surgery (SDC) | payer MEDICARE ==
[~2020-01-28] MED LIST changes: +BALANCED SALT IRRIG OPHTH SOLN 15 ML BOTTLE. IRR ONE; +CATARACT OPHTH GEL 0.5 ML SYRINGE. OS ONE; +CHONDROIT-SOD-HYALURONATE KIT. OS ONE; +EPINEPHrine AMPULE 0.5 MG in BALANCED SALT IRRIG SOLN PLUS 500 ML IO ONE; +ERYTHROMYCIN 0.5% OPHTH OINTMENT 1GM TUBE. OS ONE; +HYALURONIDASE 75UNITS in LIDOCAINE 2% PF OPHTH 10 ML SYRINGE. OS ONE; +IPRATRPIUM/ALBUTEROL 0.5/2.5MG 3 ML NEBU. NEB PRN; +IV RINGERS SOLUTION,LACTATED 1,000 ML IV SCH; +KETOROLAC TROMETHAMINE 0.5% OPHTH SOLUTION BOTTLE. ONE; +KETOROLAC TROMETHAMINE 0.5% OPHTH SOLUTION BOTTLE. OS SCH; +MIDAZOLAM HCL PF 2 MG/2 ML VIAL. IV ONE; +MOXIFLOXACIN 0.5% OPHTH SOLUTION 3ML BOTTLE. OS SCH; +POVIDONE-IODINE 5% OPHTH SOLUTION 30ML BOTTLE. OS ONE; +TETRACAINE 0.5% OPHTH SOLUTION 4ML BOTTLE. OS ONE; +TETRACAINE 0.5% OPHTH SOLUTION 4ML BOTTLE. OU ONE; +prednisoLONE ACETATE 1% OPHTH SUSPENSION 5ML BOTTLE. ONE; +prednisoLONE ACETATE 1% OPHTH SUSPENSION 5ML BOTTLE. OS SCH
[2020-01-28] MEDS: MOXIFLOXACIN 0.5% OPHTH SOLUTION 3ML BOTTLE. OS SCH ×3 (07:35→07:46)
--- NOTE | 2020-01-28 08:42 | PDOC4 ---
Phaco/Toric IOL/OS Date of Procedure: Jan 28, 2020 Preoperative Doagnosis: 1. Senile Cataract, OS 2. Corneal astigmatism, OS Postoperative Diagnosis: 1. Senile Cataract, OS 2. Corneal astigmatism, OS Anesthesia: Local with monitored anesthesia care Surgeon: Josephine Mcgrath D.O. Procedure: Phacoemulsification with toric intraocular lens implant at 175 degrees, OS Findings: 1. Senile Cataract, OS 2. Corneal astigmatism, OS Indications: Worsening vision interfering with patient's lifestyle Narrative: After discussing the risks, complications and alternatives, including but not limited to loss of vision, infection, bleeding, swelling, anesthetic reaction, capsule rupture with vitreous loss, etc., the patient was given topical anesthetic in the eye. The eye was then marked at the 3, 6 and 9 o'clock limbus. Wilma-ocular anesthesia was given and a Honan Balloon was applied for 10 minutes. The patient was transferred to the main operating room and was prepped and draped in the usual sterile fashion and positioned under the microscope. A lid speculum was placed. A temporal clear corneal incision was made with a keratome and viscoelastic was injected into the anterior chamber. A 5.5 mm diameter corneal aleisha was placed. A side port incision was made. A continuous tear capsulorrhexis was performed, then hydrodissection was accomplished with balanced salt solution. They phacoemulsification needle was placed in the eye and the nucleus was emulsified. The remaining cortical material was removed with the irrigation and aspiration apparatus. The capsule was polished as needed. The posterior capsule was noted to be clean and intact. Viscoelastic was injected into the eye inflating the capsular bag. The cornea was marked at the appropriate meridian for toric IOL implantation. An intraocular lens was i njected into the eye, unfolding as desired and was positioned in the meridian. The wound edges were hydrated with balanced salt solution and there were no leaks. Viscoelastic was injected over the limbal incisions. Antibiotic and steroid were placed on the eye. The lid speculum was removed and a patch and Saravia shield were applied. There were no complications and the patient was taken to the PACU in good condition. JOSEPHINE MCGRATH DO Jan 28, 2020 08:42
[2020-01-28 08:46] VITALS: BP 142/69
== END | disposition home or self-care (01) ==
LOC: SURG 07:03
PROVIDERS: ATTEND Ophthalmology
DX: H25.12 Age-related nuclear cataract, left eye (principal); H52.202 Unspecified astigmatism, left eye; I10 Essential (primary) hypertension; I25.10 Atherosclerotic heart disease of native coronary artery without angina pectoris; I25.2 Old myocardial infarction; J44.9 Chronic obstructive pulmonary disease, unspecified; E03.9 Hypothyroidism, unspecified; Z88.8 Allergy status to other drugs, medicaments and biological substances; Z87.891 Personal history of nicotine dependence; Z98.890 Other specified postprocedural states; Z79.899 Other long term (current) drug therapy; Z95.5 Presence of coronary angioplasty implant and graft
CPT/HCPCS: 66984; J0171; V2787

== ENCOUNTER 2020-03-24 04:05 | Emergency (ER) | payer MEDICARE ==
[~2020-03-24] VITALS: Ht 170.2 cm; Wt 65.6 kg
[~2020-03-24 04:05] MED LIST changes: -BALANCED SALT IRRIG OPHTH SOLN 15 ML BOTTLE. IRR ONE; -CATARACT OPHTH GEL 0.5 ML SYRINGE. OS ONE; -CHONDROIT-SOD-HYALURONATE KIT. OS ONE; -EPINEPHrine AMPULE 0.5 MG in BALANCED SALT IRRIG SOLN PLUS 500 ML IO ONE; -ERYTHROMYCIN 0.5% OPHTH OINTMENT 1GM TUBE. OS ONE; -HYALURONIDASE 75UNITS in LIDOCAINE 2% PF OPHTH 10 ML SYRINGE. OS ONE; -IPRATRPIUM/ALBUTEROL 0.5/2.5MG 3 ML NEBU. NEB PRN; -IV RINGERS SOLUTION,LACTATED 1,000 ML IV SCH; -KETOROLAC TROMETHAMINE 0.5% OPHTH SOLUTION BOTTLE. ONE; -KETOROLAC TROMETHAMINE 0.5% OPHTH SOLUTION BOTTLE. OS SCH; -MIDAZOLAM HCL PF 2 MG/2 ML VIAL. IV ONE; -MOXIFLOXACIN 0.5% OPHTH SOLUTION 3ML BOTTLE. OS SCH; -POVIDONE-IODINE 5% OPHTH SOLUTION 30ML BOTTLE. OS ONE; -TETRACAINE 0.5% OPHTH SOLUTION 4ML BOTTLE. OS ONE; -TETRACAINE 0.5% OPHTH SOLUTION 4ML BOTTLE. OU ONE; -prednisoLONE ACETATE 1% OPHTH SUSPENSION 5ML BOTTLE. ONE; -prednisoLONE ACETATE 1% OPHTH SUSPENSION 5ML BOTTLE. OS SCH
--- NOTE | 2020-03-24 04:11 | PHYS DOC ---
Past History Past Medical History: Angina, Anxiety, Arrhythmia, Bronchitis, CAD, COPD, Heart Disease, Hypertension, UT, Other Additional Past Medical Histor: Coronary artery stents, Hx. renal insuf. Past Surgical History: Angioplasty, Tonsillectomy Additional Past Surgical Histo: delmar knee arthroscopies; lower back surg; coronary stents Smoking: Cigarettes, Quit Greater Than 1 Year Alcohol Use: Occasionally Drug Use: None General Adult EDM: Chief Complaint: SHORTNESS OF BREATH HPI: HPI: ".. I did not want to come to the hospital.. I was okay to stay home.. but my grandson had called earlier on me...and the rough and trueing machine operator's came out. ,I did not want to go to the hospital.. but they said if they were called again.. I would have to go to the hospital... and he called them again tonight.. . they then made me come..in..".. I refused to come in.. but they made me come in anyway...." ".. I just had one of those coughing spell.. where my sputum gets stuck..." .. " I am okay.. but they would not let me stay home..".." I know I got bad lungs.. .".. "but I am not that bad tonight..." " Please just let me go home...". "It probably more risk to be in the hospital.. with all those COVID patients everywhere..." Patient is a 84 year old female who presents with above hx and complaints whee zing, cough, dyspnea. Patient denies any changes of her baseline meds or oxygen requirements. Patient states that she has not been on steroids recently. Pt. is not on antibiotics currently. Patient denies any recent travel or specific ill contacts. Patient has significant medical history of coronary artery disease, UT, status post multiple stent deployments, hypertension, hype rlipidemia, carotid artery disease, COPD, gall stones, kidney stones , osteoarthritis, hypothyroidism, osteopenia , recurrent episodes of bronchitis, and chronic hypoxia-O2 to dependent at 4 L. Patient has not smoked for over 40 years. Pt. follows with Dr. Bonds. Pt. follows with Dr. Velasco for cardiology. Pt. lives with her grandson. Review of Systems: Review of Systems: Constitutional: Denies fever or chills Eyes: Denies change in visual acuity HENT: Denies nasal congestion or sore throat Respiratory: Complains of cough and increased wheezing. Cardiovascular: Denies chest pain or edema GI: Denies abdominal pain, nausea, vomiting, bloody stools or diarrhea : Denies dysuria Musculoskeletal: Denies back pain or joint pain Integument: Denies rash Neurologic: Denies headache, focal weakness or sensory changes Endocrine: Denies polyuria or polydipsia Lymphatic: Denies swollen glands Psychiatric: Denies depression or anxiety Family History: Family History: Noncontributory to presentation Current Medications: Current Meds: See nursing for home meds Allergies: Allergies: Allergies Coded Allergies Type Severity Reaction Last Updated Verified Oggigck-Uke-Luc Reductase Inhibitor Allergy Intermediate 01/20/20 Yes montelukast Allergy Unknown 01/21/20 Yes Physical Exam: PE: Constitutional: no acute distress, non-toxic appearance. [] HENT: Normocephalic, atraumatic, bilateral external ears normal, oropharynx moist, no oral exudates, nose normal. Poor dentition Eyes: PERRLA, EOMI, conjunctiva normal, no discharge. [] Neck: Normal range of motion, no tenderness, supple, no stridor. [] Cardiovascular:Heart rate regular rhythm, no murmur, PMI to left Lungs & Thorax: Bilateral breath sounds equal apex with scattered wheezes on auscultation . Hyper expanded. Abdomen: Bowel sounds normal, soft, no tenderness, no masses, no pulsatile masses. Mild distention Skin: Warm, dry, no erythema, no rash. Poor turgor Back: No tenderness, no CVA tenderness. Old surgical scar lumbar. Kyphosis Extremities: No tenderness, no cyanosis, no clubbing, ROM intact, no edema. A rthritic changes. No cording. Bilateral knee scars Neurologic: Alert and oriented X 3, moves all extremities on request, has distal sensory, patient denies any new focal deficits noted. [] Psychologic: Affect normal, judgement normal, mood normal. [] EKG: EKG: My interpretation EKG shows heart rhythm of 79. There is some wavering baseline, left axis deviation and a fascicular block. EKG is similar to prior EKGs on file [] Radiology/Procedures: Radiology/Procedures: [][address] [address] IMAGING REPORT Signed PATIENT: YOLA MENDOZA ACCOUNT: [id number] : 1935 LOCATION: ER AGE: 84 SEX: F EXAM STATUS: REG ER ORD. PHYSICIAN: MICHEAL MARTIN MD REASON: dyspnea, cough PROCEDURE: PORTABLE CHEST 1V PORTABLE CHEST 1V INDICATION: Reason: dyspnea, cough / Spl. Instructions: / History: . COMPARISON STUDY: None. FINDINGS: Lungs: Hyperexpanded lung volume. No pulmonary mass or consolidation. The tracheobronchial tree and hilar structures are normal. Pleura: Pleural thickening versus trace effusions. Heart and Mediastinum: The cardiomediastinal silhouette is normal. Atherosclerosis of thoracic aorta. IMPRESSION: No consolidation. Electronically signed by: Lia Cotto MD (03/24/2020 5:04 AM) [facility] DICTATED AND SIGNED BY: LIA COTTO MD DATE: 03/24/20 0504 CC: IAN BONDS MD; MICHEAL MARTIN MD ~MTH0 0 Heart Score: HEART Score for Chest Pain: HEART Score for Chest Pain Response (Comments) Value History Moderately Suspicious 1 ECG Nonspecific Repolarizatio 1 Age > 65 2 Risk Factors >3 Risk Factors or Hx CAD 2 Troponin < Normal Limit 0 Total 6 Risk Factors: Risk Factors: DM, Current or recent (<one month) smoker, HTN, HLP, family history of CAD, obesity. Risk Scores: Score 0 - 3: 2.5% MACE over next 6 weeks - Discharge Home Score 4 - 6: 20.3% MACE over next 6 weeks - Admit for Clinical Observation Score 7 - 10: 72.7% MACE over next 6 weeks - Early Invasive Strategies Course & Med Decision Making: Course & Med Decision Making Pertinent Labs and Imaging studies reviewed. (See chart for details) Patient given albuterol treatments, Solu-Medrol 125, and Zithromax 500 mg. Patient maintaining her saturations at 95 or above on her normal oxygen requirements of 4 L per nasal cannula. Patient requesting repeatedly to be discharged home. Pt. refusing admission. Patient states she will continue her current regimen of pulmonary drugs. Patient will be started on prednisone 50 mg a day for 5 days. We will continue Zithromax 250 mg daily. Patient will be started on a course Eliquis 2.5 mg twice a day. Patient to follow-up with Dr. Huitron. Pt. to follow up with her stabilizing machine operator Dr. Velasco. Risk and benefits of discharge home reviewed repeatedly. Patient insistent on discharge home. Patient exhibited capacity and seems aware of risks for discharge home. Impression: 1. COPD Exacerbation 2. Bronchitis 3. Elevated D-dimer 1.33( Prior visits pt. has had elevated D-dimers) 4. Hx. CADz,(s/p stents) [] Dragon Disclaimer: Dragon Disclaimer: This electronic medical record was generated, in whole or in part, using a voice recognition dictation system. Departure Departure: Referrals: IAN BONDS MD (PCP) Scripts Azithromycin (ZITHROMAX) 250 Mg Tablet 250 MG PO DAILY for ANTI-BIOTIC for 5 Days, #5 TAB 0 Refills Prov: MICHEAL MARTIN MD 03/24/20 Apixaban (ELIQUIS) 2.5 Mg Tablet 2.5 MG PO BID for Elevated D-dimer for 10 Days, #20 TAB Prov: MICHEAL MARTIN MD 03/24/20 Prednisone (PREDNISONE) 50 Mg Tablet 50 MG PO DAILY for COPD for 5 Days, #5 TAB Prov: MICHEAL MARTIN MD 03/24/20 Dragon Disclaimer This chart was dictated in whole or in part using Voice Recognition software in a busy, high-work load, and often noisy Emergency Department environment. It may contain unintended and wholly unrecognized errors or omissions. Dragon Disclaimer This chart was dictated in whole or in part using Voice Recognition software in a busy, high-work load, and often noisy Emergency Department environment. It may contain unintended and wholly unrecognized errors or omissions. MICHEAL MARITN MD Mar 24, 2020 04:11
[2020-03-24] MEDS ORDERED: methylPREDNISolone SOD SUCC PF 125 MG/2 ML VIAL. IV ONE (04:15)
[2020-03-24] MEDS ORDERED: IPRATRPIUM/ALBUTEROL 0.5/2.5MG 3 ML NEBU. NEB ONE (04:15)
[2020-03-24] MEDS ORDERED: IV RINGERS SOLUTION,LACTATED 1,000 ML IV SCH (04:30)
[2020-03-24] MEDS ORDERED: ASPIRIN CHEWABLE 81 MG TABLET. PO ONE (04:30)
[2020-03-24] MEDS ORDERED: AZITHROMYCIN 250 MG TABLET. PO ONE (04:30)
[2020-03-24 05:02] LABS: BASO # 0.1 x10^3/uL (0.0-0.2); BASO % 1 % (0-3); CALCIUM 9.4 mg/dL (8.5-10.1); CREATININE 1.1 mg/dL (0.6-1.0); EOS # 0.3 x10^3/uL (0.0-0.7); EOS % 3 % (0-3); GFR 47.6; HEMATOCRIT 38.9 % (36.0-47.0); HEMOGLOBIN 12.6 g/dL (12.0-15.5); LYMPH # 2.1 x10^3/uL (1.0-4.8); LYMPH % 20 % (24-48); MEAN CORPUSCULAR HEMOGLOBIN 30 pg (25-35); MEAN CORPUSCULAR HGB CONC 33 g/dL (31-37); MEAN CORPUSCULAR VOLUME 91 fL (79-100); MONO # 1.1 x10^3/uL (0.0-1.1); MONO % 10 % (0-9); NEUT # 6.9 x10^3uL (1.8-7.7); NEUT % 66 % (31-73); PLATELET COUNT 337 x10^3/uL (140-400); POTASSIUM 3.9 mmol/L (3.5-5.1); RED BLOOD COUNT 4.26 x10^6/uL (3.50-5.40); RED CELL DISTRIBUTION WIDTH 13.7 % (11.5-14.5); WHITE BLOOD COUNT 10.4 x10^3/uL (4.0-11.0)
--- NOTE | 2020-03-24 05:07 | RAD ---
PORTABLE CHEST 1V INDICATION: Reason: dyspnea, cough / Spl. Instructions: / History: . COMPARISON STUDY: None. FINDINGS: Lungs: Hyperexpanded lung volume. No pulmonary mass or consolidation. The tracheobronchial tree and hilar structures are normal. Pleura: Pleural thickening versus trace effusions. Heart and Mediastinum: The cardiomediastinal silhouette is normal. Atherosclerosis of thoracic aorta. IMPRESSION: No consolidation. Electronically signed by: Albert Cotto MD (03/24/2020 5:04 AM) [facility]
[2020-03-24 05:15] LABS: ALBUMIN 3.1 g/dL (3.4-5.0); DIRECT BILIRUBIN 0.1 mg/dL (0.0-0.2); MAGNESIUM 1.9 mg/dL (1.8-2.4); TOTAL BILIRUBIN 0.2 mg/dL (0.2-1.0); TOTAL PROTEIN 6.6 g/dL (6.4-8.2)
[2020-03-24 05:23] LABS: % BANDS 6 % (0-9); % EOS 5 % (0-5); % LYMPHS 18 % (24-48); % MONOS 5 % (0-10); % SEGS 66 % (35-66); PLT ESTIMATE ADEQUATE (ADEQUATE)
[2020-03-24] MEDS ORDERED: PRED50TA PO (06:22)
[2020-03-24] MEDS ORDERED: APIX2.5T PO (06:22)
[2020-03-24] MEDS ORDERED: AZIT250T PO (06:22)
[2020-03-24] MEDS ORDERED: APIXABAN 2.5 MG TABLET PO ONE (06:30)
--- NOTE | 2020-03-24 06:44 | EKG ---
[address] [address] Test Date: 2020-03-24 Test Time: 04:56:59 Pat Name: YOLA MENDOZA Department: Room: Gender: F Roper Operator: [id number] : 1935 Requested By: MICHEAL MARTIN Order Number: [id number] Reading MD: Measurements Intervals [place] Rate: 79 P: AR: QRS: -59 QRSD: 80 T: 36 QT: 356 QTc: 409 Interpretive Statements ATRIAL FLUTTER ABNORMAL LEFT AXIS DEVIATION LEFT ANTERIOR FASCICULAR BLOCK ABNORMAL ECG RI6.02 No previous ECG available for comparison
[2020-03-24 07:10] VITALS: BP 152/71
[2020-03-24] MEDS ORDERED: ALBUTEROL SULFATE 2.5 MG/3 ML NEBU. NEB ONE (07:15)
[2020-03-24] MEDS ORDERED: APIXABAN 2.5 MG TABLET PO SCH ×2 (09:00→21:00)
== END 2020-03-24 07:20 | disposition home or self-care (01) ==
LOC: ER 04:05
DX: J44.1 Chronic obstructive pulmonary disease with (acute) exacerbation (principal); R79.1 Abnormal coagulation profile; I25.10 Atherosclerotic heart disease of native coronary artery without angina pectoris; F41.9 Anxiety disorder, unspecified; J44.9 Chronic obstructive pulmonary disease, unspecified; I11.9 Hypertensive heart disease without heart failure; I25.2 Old myocardial infarction; Z87.891 Personal history of nicotine dependence; Z98.61 Coronary angioplasty status; Z88.8 Allergy status to other drugs, medicaments and biological substances
CPT/HCPCS: 36415; 71045; 80048; 80076; 82550; 83690; 83735; 83880; 84443; 84484; 85007; 85025; 85379; 85610; 85730; 87040; 93005; 94640; 96361; 96374; 99285; J0456; J2930; J7120; J7613

== ENCOUNTER 2020-03-25 22:44 | Inpatient (IN) | payer MEDICARE ==
[~2020-03-25] VITALS: Ht 170.2 cm; Wt 65.7 kg
[~2020-03-25 22:44] MED LIST changes: +APIX2.5T PO; +PRED50TA PO
[2020-03-25] MEDS ORDERED: DEXAMETHASONE SOD PHOS 10 MG/ML VIAL. IV ONE (23:00)
--- NOTE | 2020-03-25 23:14 | EKG ---
[address] [address] Test Date: 2020-03-25 Test Time: 23:05:58 Pat Name: YOLA MENDOZA Department: Room: Gender: F Vacuum Extractor Operator: : 1935 Requested By: ADA RESENDEZ Order Number: [id number] Reading MD: Measurements Intervals [place] Rate: 78 P: 63 TX: 146 QRS: -38 QRSD: 80 T: 29 QT: 368 QTc: 423 Interpretive Statements SINUS RHYTHM VENTRICULAR PREMATURE COMPLEX(ES) ABNORMAL LEFT AXIS DEVIATION LEFT ANTERIOR FASCICULAR BLOCK ABNORMAL ECG RI6.02 No previous ECG available for comparison
[2020-03-25] MEDS ORDERED: CONTRAST GIVEN. MC PRN (23:15)
--- NOTE | 2020-03-25 23:29 | PHYS DOC ---
Past History Past Medical History: Angina, Anxiety, Arrhythmia, Bronchitis, CAD, COPD, Heart Disease, Hypertension, UT, Other Additional Past Medical Histor: Coronary artery stents, Hx. renal insuf. Past Surgical History: Angioplasty, Tonsillectomy Additional Past Surgical Histo: delmar knee arthroscopies; lower back surg; coronary stents Smoking: Cigarettes, Quit Greater Than 1 Year Alcohol Use: Occasionally Drug Use: None General Adult EDM: Chief Complaint: SHORTNESS OF BREATH HPI: HPI: Patient is an 84 year old female who presents with SOA. She was in the ED yesterday with the same symptoms and had a full workup done. She reports the same symptoms today with no resolution. She took all medications Dr. Leavitt prescribed yesterday except Eliquis because her daughter called her PCP who said she was already on a blood thinner, Plavix. She had 2 episodes of SOA yesterday after leaving the ED and 2-3 episodes again today. She is normally on 4L oxygen at home. Episodes coincide with exertion such as getting up to go to the ba throom. She denies cough, fever, or exposure to Covid. She reports that normally her family is encouraging her to come to the ED and she is reluctant, but today she was amendable to coming because of the persistence of symptoms. Review of Systems: Review of Systems: Constitutional: Denies fever or chills Eyes: Denies redness or eye pain HENT: Denies nasal congestion or sore throat Respiratory: Denies cough, Reports shortness of breath Cardiovascular: Denies chest pain or palpitations GI: Denies abdominal pain, nausea, or vomiting Musculoskeletal: Denies back pain or joint pain Integument: Denies rash or skin lesions Neurologic: Denies headache, focal weakness or sensory changes Complete systems were reviewed and found to be within normal limits, except as documented in this note. Current Medications: Current Meds: Current Medications Medications (Trade) Dose Ordered Sig/Chris Start Time Stop Time Status Last Admin Dose Admin Dexamethasone Sodium Phosphate (Decadron) 10 mg 1X ONCE 03/25/20 23:00 03/25/20 23:02 DC Info (Do NOT chart on this entry -- for MONITORING) 1 each PRN DAILY PRN 03/25/20 23:15 03/27/20 23:14 Iohexol (Omnipaque 350 Mg/ml) 100 ml 1X ONCE 03/25/20 23:30 03/25/20 23:31 Sodium Chloride 1,000 ml @ 1,000 mls/hr 1X ONCE 03/25/20 23:45 03/26/20 00:44 Allergies: Allergies: Allergies Coded Allergies Type Severity Reaction Last Updated Verified Krtckht-Ixx-Lbo Reductase Inhibitor Allergy Intermediate 03/24/20 Yes montelukast Allergy Unknown 03/24/20 Yes Physical Exam: PE: Constitutional: Well developed, well nourished, no acute distress, non-toxic appearance HENT: Normocephalic, atraumatic Eyes: PERRL, EOMI, conjunctiva normal, no discharge Neck: Normal range of motion, no tenderness, supple Lungs & Thorax: No respiratory distress, equal chest rise and fall, oxygen saturation of 99% on 4L oxygen Abdomen: Soft, no tenderness Skin: Warm, dry, no erythema, no rash, bruising present throughout Back: No tenderness, no CVA tenderness Extremities: No tenderness, ROM intact, no edema Neurologic: Alert and oriented X 3, normal motor function, normal sensory function, no focal deficits noted Psychologic: Affect normal, judgment normal EKG: EKG: @2305 NSR at 78bpm, occasional PVC, LAFB, NO ST elevation, QRS 80ms, QT/QTc 368/423ms Radiology/Procedures: Radiology/Procedures: PROCEDURE: CT ANGIOGRAPHY CHEST CT ANGIOGRAPHY CHEST INDICATION: SOA, hx of elevated d-dimer Comparison: 12/07/2018. TECHNIQUE: Following the uneventful administration of intravenous contrast, 75 cc Omnipaque 350, axial CT sections were obtained through the lungs and upper abdomen. Multiplanar reconstructions and MIP images were obtained. PQRS compliance statement: One or more of the following individualized dose reduction techniques were utilized for this examination: 1. Automated exposure control 2. Adjustment of the mA and/or kV according to patient size 3. Use of iterative reconstruction technique FINDINGS: Pulmonary arteries: No evidence of pulmonary thromboembolic disease. Lungs and Airways: Left upper lobe spiculated 13 mm nodule previously measured 6 mm (series 6 image 39, series 4 image 35). Left upper lobe part solid perifissural nodule has solid component measuring 11 mm, previously 7 mm when measured in the same fashion (series 4 image 47). Stable right upper lobe groundglass nodule (image 71) Centrilobular emphysema. No abnormality of the central airways. Pleura: The pleural spaces are normal. Heart and Mediastinum: The visualized thyroid is normal in size and attenuation. No axillary or supraclavicular lymphadenopathy. No mediastinal, hilar or retrocrural lymphadenopathy. Normal cardiac size. No pericardial effusion. Coronary artery atherosclerotic disease. Atherosclerosis of the thoracic aorta. Small hiatal hernia. Abdomen: Cholelithiasis. Colonic diverticulosis. Bones and Soft Tissues: Degenerative changes of the spine. IMPRESSION: 1. No evidence of pulmonary thromboembolic disease. 2. 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 Based on size, these may be amenable to PET/CT. 3. No thoracic lymphadenopathy. Electronically signed by: Lia Cotto MD (03/26/2020 12:02 AM) [facility] DICTATED AND SIGNED BY: LIA COTTO MD DATE: 03/26/20 0002 Course & Med Decision Making: Course & Med Decision Making Pertinent Labs and Imaging studies reviewed. (See chart for details) Patient is an 84 year old female who presents with SOA. She was in the ED yesterday and had a full work up performed but was not willing to be admitted. EKG as noted previously with no acute abnormalities. CT angio chest concerning for primary lung neoplasm. Labs (to include BNP and lactic acid) and UA ordered. Elevated lactic acid, fluid bolus provided. Patient requiring admission for further evaluation and treatment. Discussed with Dr. Moreno who is in agreement with admission. Discussed findings and plan with patient, who acknowledges understanding and agreement. Estephania Disclaimer: Estephania Disclaimer: This electronic medical record was generated, in whole or in part, using a voice recognition dictation system. Departure Departure: Impression: Primary Impression: Dyspnea on exertion Additional Impressions: COPD (chronic obstructive pulmonary disease) Qualified Codes: J44.9 - Chronic obstructive pulmonary disease, unspecified Pulmonary nodules Lactic acidosis Disposition: 09 ADMITTED INPT THIS HOSP Admitting Physician: Panfilo Moreno Condition: STABLE Referrals: IAN ALVARADO MD (PCP) ADA RESENDEZ DO Mar 25, 2020 23:29
[2020-03-25] MEDS ORDERED: IOHEXOL 350 MG/ML 100 ML VIAL. IV ONE (23:30)
[2020-03-25] MEDS ORDERED: IV NORMAL SALINE 1,000ML 1,000 ML IV ONE (23:45)
[2020-03-25 23:54] LABS: CALCIUM 9.9 mg/dL (8.5-10.1); CREATININE 1.1 mg/dL (0.6-1.0); GFR 47.6; POTASSIUM 4.9 mmol/L (3.5-5.1)
--- NOTE | 2020-03-26 00:05 | RAD ---
CT ANGIOGRAPHY CHEST INDICATION: SOA, hx of elevated d-dimer Comparison: 12/07/2018. TECHNIQUE: Following the uneventful administration of intravenous contrast, 75 cc Omnipaque 350, axial CT sections were obtained through the lungs and upper abdomen. Multiplanar reconstructions and MIP images were obtained. PQRS compliance statement: One or more of the following individualized dose reduction techniques were utilized for this examination: 1. Automated exposure control 2. Adjustment of the mA and/or kV according to patient size 3. Use of iterative reconstruction technique FINDINGS: Pulmonary arteries: No evidence of pulmonary thromboembolic disease. Lungs and Airways: Left upper lobe spiculated 13 mm nodule previously measured 6 mm (series 6 image 39, series 4 image 35). Left upper lobe part solid perifissural nodule has solid component measuring 11 mm, previously 7 mm when measured in the same fashion (series 4 image 47). Stable right upper lobe groundglass nodule (image 71) Centrilobular emphysema. No abnormality of the central airways. Pleura: The pleural spaces are normal. Heart and Mediastinum: The visualized thyroid is normal in size and attenuation. No axillary or supraclavicular lymphadenopathy. No mediastinal, hilar or retrocrural lymphadenopathy. Normal cardiac size. No pericardial effusion. Coronary artery atherosclerotic disease. Atherosclerosis of the thoracic aorta. Small hiatal hernia. Abdomen: Cholelithiasis. Colonic diverticulosis. Bones and Soft Tissues: Degenerative changes of the spine. IMPRESSION: 1. No evidence of pulmonary thromboembolic disease. 2. 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 Based on size, these may be amenable to PET/CT. 3. No thoracic lymphadenopathy. Electronically signed by: Albert Cotto MD (03/26/2020 12:02 AM) [facility]
[2020-03-26 00:10] LABS: ALBUMIN 3.3 g/dL (3.4-5.0); ALBUMIN/GLOBULIN RATIO 1.1 (1.0-1.7); MAGNESIUM 2.1 mg/dL (1.8-2.4); TOTAL BILIRUBIN 0.1 mg/dL (0.2-1.0); TOTAL PROTEIN 6.2 g/dL (6.4-8.2)
[2020-03-26 00:43] LABS: BASO % 0 % (0-3); EOS % 0 % (0-3); HEMATOCRIT 37.8 % (36.0-47.0); HEMOGLOBIN 11.9 g/dL (12.0-15.5); LYMPH # 0.8 x10^3/uL (1.0-4.8); LYMPH % 6 % (24-48); MEAN CORPUSCULAR HEMOGLOBIN 29 pg (25-35); MEAN CORPUSCULAR HGB CONC 31 g/dL (31-37); MEAN CORPUSCULAR VOLUME 92 fL (79-100); MONO # 0.3 x10^3/uL (0.0-1.1); MONO % 2 % (0-9); NEUT # 13.2 x10^3uL (1.8-7.7); NEUT % 92 % (31-73); PLATELET COUNT 364 x10^3/uL (140-400); RED BLOOD COUNT 4.12 x10^6/uL (3.50-5.40); RED CELL DISTRIBUTION WIDTH 13.8 % (11.5-14.5); WHITE BLOOD COUNT 14.4 x10^3/uL (4.0-11.0)
[2020-03-26] MEDS ORDERED: ACETAMINOPHEN 325 MG TABLET PO PRN (00:45)
[2020-03-26] MEDS ORDERED: ONDANSETRON PF 4 MG/2 ML VIAL. IVP PRN (00:45)
[2020-03-26] MEDS ORDERED: IPRATRPIUM/ALBUTEROL 0.5/2.5MG 3 ML NEBU. ONE (00:58)
[2020-03-26] MEDS ORDERED: ASPIRIN ENTERIC COATED 325 MG TABLET.DR. PO ONE (01:00)
--- NOTE | 2020-03-26 01:42 | NUR ---
The patient, YOLA MENDOZA, 84 y/o, F admitted by INDU YANES MD, was given written information regarding hospital policies, unit procedures and contact persons. Valuables were checked and noted. PT's purse placed in bedside drawer. Reviewed with PT her PMH, PSH, SH, FH and medications. PT unsure of medications. Medications were verified with PT's daughter via phone. PT states she uses her nebulizer every 2 hours, waking herself up to use throughout the night. PT very anxious.
[2020-03-26 02:04] VITALS: BP 122/66
--- NOTE | 2020-03-26 03:05 | NUR ---
Oxygen tank provided to PT for use to bathroom with walker, gait belt and LATHE SPOTTER assistance for tank mobility. PT on side of bed, refusing to move off side of bed. Informed PT how she is sitting is unsafe. PT refuses to move. PT very anxious at this time. PT able to use walker appropriately. PT on 5L O2 at this time, saturating well.
[2020-03-26 05:22] LABS: % LYMPHS 10 % (24-48); % MONOS 1 % (0-10); % PROS 1 % (0-0); % SEGS 88 % (35-66)
[2020-03-26 05:23] LABS: PLT ESTIMATE ADEQUATE (ADEQUATE)
[2020-03-26 06:16] VITALS: BP 135/63
[2020-03-26] MEDS: ALBUTEROL SULFATE 2.5 MG/3 ML NEBU. NEB PRN ×4 (07:44→23:00)
[2020-03-26] MEDS: LORazepam 0.5 MG TABLET PO PRN ×2 (07:44→17:07)
[2020-03-26 11:02] VITALS: BP 122/68
[2020-03-26] MEDS ORDERED: ALBUTEROL SULFATE 2.5 MG/3 ML NEBU. IH PRN (12:30)
--- NOTE | 2020-03-26 14:11 | HP ---
ADMIT DATE: 03/26/2020 HISTORY OF PRESENT ILLNESS: The patient is an 84-year-old female patient who presented to the Emergency Room with a complaint of shortness of breath after she left the Emergency Department and had 2-3 episodes yesterday. She is normally on 4 liters of oxygen at home episodes coincide with exertion such as getting up to go to the bathroom. She denies any cough, fever, or exposure to COVID. She reports that normally her family is encouraging her to come to the ED and she is reluctant, but on the day of admission, she was amenable to coming in because of persistence of her symptoms. On arrival, the patient was according to the ER physician, in no respiratory distress. She has equal chest rise and fall. Her oxygen saturation was 99% on 4 liters of oxygen. The patient was extensively investigated again and was admitted with COPD exacerbation. Apparently, her lab work showed leukocytosis and mild lactic acidosis. She was given dexamethasone as well as albuterol and Atrovent inhaler, nebulizer and was started also on some Ativan as the patient was extremely anxious. She was seen in the Emergency Room on 03/24 and at that time, she also had an extensive investigation including lab work and has had a chest x-ray, which showed that she has hyperexpanded lung volumes, no pulmonary masses or consolidation, the tracheobronchial tree and hilar structures are normal. She does have pleural thickening versus trace effusion; however, the cardiomediastinal silhouette is normal, atherosclerosis of thoracic aorta and at that time, she was discharged home with azithromycin, apixaban and prednisone was diagnosed with COPD exacerbation, acute bronchitis, elevated D-dimer and coronary artery disease with status post stent deployment obviously only to come back after she had multiple episodes of shortness of air. PAST MEDICAL HISTORY: Significant for coronary artery disease, status post myocardial infarction, status post multiple stent deployment. She is known to have hypertension, hyperlipidemia, carotid artery disease, chronic obstructive pulmonary disease, cholelithiasis, generalized osteoarthritis, hypothyroidism and osteopenia. PAST SURGICAL HISTORY: Significant for PCI and drug-eluting stent to the right coronary artery, left circumflex and left anterior descending. She underwent bunionectomy and back surgery, tonsillectomy as well as arthroscopic surgery to both knees. She has had cardiac catheterization done on 08/19/2019, which showed the patient has previously placed stents to left anterior descending, left circumflex, and right coronary arteries that are all patent. There was 50% stenosis involving the mid to distal segment of the left anterior descending that was significantly physiologically insignificant based on IFR measurement of 0.93. She has hyperdynamic left ventricular systolic function, ejection fraction estimated at 75%. She also has an acute on chronic diastolic heart failure as well as evidenced by elevated left ventricular end diastolic pressure. FAMILY HISTORY: Noncontributory. SOCIAL HISTORY: She is . Her grandson lives with her. She has not smoked for the last 40 years. She does not drink alcohol or use any recreational drugs. ALLERGIES: SHE IS ALLERGIC TO STATINS, HYDROXYMETHYLGLUTARYL-COENZYME REDUCTASE, INHIBITORS HAS CAUSE MUSCLE WASTING AND PAIN. REVIEW OF SYSTEMS: The patient denied any blurring of vision. She has had cataracts. Denied any glaucoma or macular degeneration. Denied any earache, tinnitus or sensorineural deafness. Denied any nosebleeds, stuffy nose or postnasal drip. Denied any sore throat, sore tongue, toothache, hoarseness of voice or difficulty swallowing. She denied any nausea, vomiting, diarrhea or constipation. Denied any hematemesis, melena or hematochezia. Denied any dysuria, frequency or hematuria. Denied any chest pain. Did complain obviously shortness of breath. Her cough is mostly dry. MEDICATIONS: She is currently on following medications: She was on cefdinir 300 mg twice a day, azithromycin 250 mg once a day, ipratropium bromide and albuterol sulfate in 3 mL by nebulizer 4 times a day, albuterol sulfate 2 puffs every 4-6 hours, Plavix 75 mg once a day, metoprolol tartrate 50 mg twice a day, losartan potassium 100 mg daily, lorazepam 0.5 mg 3 times a day as needed, furosemide 20 mg once a day, ____ prednisone 50 mg daily. She is on levothyroxine sodium 75 mcg once a day, Ascorbate calcium plus bioflavonoid. She is on cholecalciferol (vitamin D3) 1000 international unit once a day, multivitamin 1 tablet once a day, glucosamine chondroitin sulfate 1 tablet once a day, CoQ10 200 mg once a day. REVIEW OF SYSTEMS: As per history of present illness. PHYSICAL EXAMINATION: GENERAL: On arrival to the Emergency Room, she looked well and was clearly in no apparent respiratory distress. She was somewhat pale, but no jaundice, cyanosis or thyromegaly. No jugular venous distention. No lower limb edema. VITAL SIGNS: Her heart rate was 81, blood pressure was 126/72, temperature was 97.6, respiratory rate was 18 and oxygen saturation was 99%. HEAD, EYES, EARS, NOSE AND THROAT: Showed normocephalic and atraumatic. NECK: Supple. HEART: Showed normal first and second heart sounds. No gallop, rub or murmur. CHEST: Clear to auscultation. No crepitation or rhonchi. ABDOMEN: Distended, soft, nontender. NEUROLOGIC: She is awake, alert, responding appropriately. All cranial nerves intact. EXTREMITIES: She moves extremities spontaneously. LABORATORY DATA: Her lab work on arrival showed a white cell count of 14,400; hemoglobin 11.9; hematocrit 37.8; MCV 92; and platelet count of 364,000 with a manual differential showed 92% polymorphs, 6% lymphocytes. Her chemistry showed a serum sodium 134, potassium 4.9, chloride 98, bicarbonate 31, anion gap of 5, BUN 17, creatinine 1.1, estimated GFR was 47 mL per minute. Her glucose was 128. Lactic acid was slightly elevated at 2.2. Calcium was 9.9, magnesium was 2.1. Total bilirubin, AST, ALT, alkaline phosphatase were normal. Total protein was 6.2, albumin was 3.3. IMAGING STUDIES: While in the Emergency Room, she has had CT angio of the chest, which showed the patient basically showed no evidence of pulmonary thromboembolic disease, increasing size of left upper lobe spiculated solid nodule and additional left upper lobe ____ solid nodule concerning for ____ primary lung neoplasm based on size. These may be amenable to PET or CT scan of the thoracic lymphadenopathy. ASSESSMENT AND PLAN: The patient was admitted with increasing shortness of breath, chronic obstructive pulmonary disease, pulmonary nodules, mild lactic acidosis. She has chronic diastolic congestive heart failure, coronary artery disease, status post multiple stents, hypertension, hyperlipidemia. My plan is to reconcile all her home medications and I will check her blood gases and discuss with our case work aide the possible arrangement for [facility]. We will decide the further management accordingly. INDU YANES MD DR: ODILIA/victorino JOB#: [id number] / [id number]
[2020-03-26] MEDS: IPRATRPIUM/ALBUTEROL 0.5/2.5MG 3 ML NEBU. NEB SCH ×2 (15:19→20:40)
[2020-03-26 15:24] VITALS: BP 104/56
[2020-03-26 15:43] LABS: BGAS PH 7.37 (7.35-7.45)
--- NOTE | 2020-03-26 18:06 | NUR ---
PT IN BED UPON MEDICATION ADMINISTRATION AND ASSESSMENT. PT EXPERIENCED INCREASING ANXIETY THROUGHOUT THE DAY. PT REQUESTING NEBULIZER TREATMENTS Q2HRS. PT INFORMED THESE ARE ORDERED TO BE GIVEN PRN Q3HRS. PT VERBALIZED UNDERSTANDING. PT GIVEN ANXIETY MEDICATION. PT RESTING IN BED. WILL CONTINUE TO MONITOR. SUGEY SILVA
[2020-03-26] MEDS: CEFDINIR 300 MG CAPSULE PO SCH (20:35)
[2020-03-26] MEDS: METOPROLOL TART IMMED RELEASE 50 MG TABLET PO SCH (20:36)
[2020-03-26] MEDS: LACTOBACILLUS RHAMNOSUS GG 1 CAPSULE. PO SCH (20:36)
[2020-03-26 20:43] VITALS: BP 110/67
[2020-03-26 22:39] VITALS: BP 122/70
[2020-03-27] MEDS: LORazepam 0.5 MG TABLET PO PRN ×2 (01:31→08:15)
[2020-03-27] MEDS: ALBUTEROL SULFATE 2.5 MG/3 ML NEBU. NEB PRN ×5 (02:01→15:55)
--- NOTE | 2020-03-27 02:12 | PN ---
DATE: 03/26/2020 SUBJECTIVE: The patient was admitted yesterday with severe shortness of breath, although even the ER physician's description showed that she was not in any respiratory distress. When I saw her this afternoon, she was just lying flat in bed, in no apparent respiratory distress. She was on 4 liters oxygen, maintaining her oxygen saturation at 99%. PHYSICAL EXAMINATION: GENERAL: When I examined her, she looked pale. No jaundice, cyanosis or thyromegaly. No jugular venous distention. No lower limb edema. VITAL SIGNS: Her heart rate was 88, blood pressure was 122/68, temperature was 97.8, respiratory rate was 24 and oxygen saturation was 99% on 4 liters of oxygen. HEAD, EYES, EARS, NOSE AND THROAT: Normocephalic, atraumatic. NECK: Supple. HEART: Showed normal first and second heart sounds. No gallop, rub or murmur. CHEST: Showed central trachea, equally reduced expansion, reduced air entry, vesicular sounds. I could not appreciate any crepitation or rhonchi. ABDOMEN: Soft, nontender. No guarding or rigidity. No organomegaly. All hernial orifices intact. Bowel sounds normal. NEUROLOGIC: She was somewhat sleepy, but arousable. All cranial nerves intact. She moves extremities without difficulty. LABORATORY DATA: Her lab work as of yesterday showed a white cell count of 14,400, hemoglobin 11.9, hematocrit 37.8, MCV 92 and platelet count of 364,000. Her chemistry showed a serum sodium 134, potassium 4.9, chloride 98, bicarbonate 31, anion gap of 5, BUN 17, creatinine 1.1, estimated GFR was 47 mL per minute. Her glucose 128, lactic acid is 1.9. Calcium was 9.9, magnesium 2.1. Total bilirubin, AST, ALT, alkaline phosphatase were normal. Total protein was 6.2, albumin 3.3. ASSESSMENT AND PLAN: This is an 84-year-old male patient who was admitted for what seemed to be probably severe anxiety and panic attack. She has severe emphysema and chronic obstructive pulmonary disease. She has multiple other medical problems including coronary artery disease, status post percutaneous coronary intervention with stent deployment to the right coronary, left circumflex and anterior descending artery. She also has history of chronic diastolic congestive heart failure as well as hypertension, hyperlipidemia, cholelithiasis, osteoarthritis, osteoporosis and hypothyroidism. I had a lengthy discussion with her family and they were wondering about Trelegy as well as hospice. I explained that she does have nodules in her left lung that compared to another two CT scans done before, has not really changed a lot, but she is not a candidate for any surgical intervention and treatment of her anxiety is probably going to help and the hospice would be a reasonable option given her overall poor prognosis, INDU YANES MD DR: ODILIA/victorino JOB#: [id number] / [id number]
--- NOTE | 2020-03-27 02:20 | NUR ---
Pt remains very anxious throughout the shift, requesting breathing treatments whenever staff is in the room. Reeducated pt on frequency of treatments. PRN ativan given as ordered.
[2020-03-27 04:44] VITALS: BP 148/100
[2020-03-27] MEDS: IPRATRPIUM/ALBUTEROL 0.5/2.5MG 3 ML NEBU. NEB SCH ×2 (05:25→10:05)
[2020-03-27] MEDS ORDERED: LEVOTHYROXINE 75 MCG TABLET PO SCH (06:00)
[2020-03-27 06:02] LABS: HEMATOCRIT 37.9 % (36.0-47.0); HEMOGLOBIN 11.9 g/dL (12.0-15.5); RED BLOOD COUNT 4.08 x10^6/uL (3.50-5.40); RED CELL DISTRIBUTION WIDTH 14.2 % (11.5-14.5); WHITE BLOOD COUNT 12.6 x10^3/uL (4.0-11.0)
[2020-03-27 06:15] LABS: ALBUMIN 3.4 g/dL (3.4-5.0); CALCIUM 9.1 mg/dL (8.5-10.1); CREATININE 1.1 mg/dL (0.6-1.0); GFR 47.6; POTASSIUM 4.7 mmol/L (3.5-5.1); TOTAL BILIRUBIN 0.3 mg/dL (0.2-1.0); TOTAL PROTEIN 6.7 g/dL (6.4-8.2)
[2020-03-27] MEDS: LACTOBACILLUS RHAMNOSUS GG 1 CAPSULE. PO SCH (08:15)
[2020-03-27] MEDS: METOPROLOL TART IMMED RELEASE 50 MG TABLET PO SCH (08:16)
[2020-03-27] MEDS: CEFDINIR 300 MG CAPSULE PO SCH (08:16)
[2020-03-27] MEDS ORDERED: ASCORBIC ACID 500 MG TABLET PO SCH (09:00)
[2020-03-27] MEDS ORDERED: FUROSEMIDE 20 MG TABLET PO SCH (09:00)
[2020-03-27] MEDS ORDERED: GLUCOSAMINE/CHOND 500/400MG CAPSULE PO SCH (09:00)
[2020-03-27] MEDS ORDERED: LOSARTAN 50 MG TABLET. PO SCH (09:00)
[2020-03-27] MEDS ORDERED: predniSONE 20 MG TABLET PO SCH ×2 (09:00)
[2020-03-27] MEDS ORDERED: MULTIVITAMIN with MINERAL TABLET. PO SCH (09:00)
[2020-03-27] MEDS ORDERED: CHOLECALCIFEROL (VITAMIN D3) 1,000 UNIT TABLET PO SCH (09:00)
[2020-03-27] MEDS ORDERED: AZITHROMYCIN 250 MG TABLET. PO SCH (09:00)
[2020-03-27] MEDS ORDERED: CLOPIDOGREL BISULFATE 75 MG TABLET PO SCH (09:00)
[2020-03-27] MEDS ORDERED: UBIDECARENONE 50 MG CAPSULE. PO SCH (09:00)
[2020-03-27 10:17] VITALS: BP 136/81
[2020-03-27] MEDS ORDERED: methylPREDNISolone SOD SUCC PF 125 MG/2 ML VIAL. IV ONE (12:00)
[2020-03-27 12:20] LABS: BGAS PH 7.35 (7.35-7.45)
[2020-03-27 14:31] VITALS: BP 106/59
--- NOTE | 2020-03-27 16:04 | NUR ---
NURSING NOTE: DISCHARGE PT DISCHARGED FROM UNIT VIA WC. PICKED UP BY FAMILY. PT DISCHARGED HOME TO HOSPICE CARE WITH [facility]. WRITTEN AND VERBAL DISCHARGE INSTRUCTIONS GIVEN. VERBAL UNDERSTANDING RECEIVED. RX FOR ROXINOL AND ATIVAN SENT WITH HOSPICE COMPANY. SUGEY SILVA
--- NOTE | 2020-03-27 23:29 | DS ---
DATE OF DISCHARGE: 03/27/2020 HOSPITAL COURSE: The patient is an 84-year-old female patient who was admitted with chronic obstructive pulmonary disease exacerbation, acute on chronic hypoxic hypercapnic respiratory failure. She also is known to have coronary artery disease, status post multiple stents and acute on chronic diastolic congestive heart failure. The patient apparently has also extreme anxiety and opted to go home on hospice. PHYSICAL EXAMINATION: GENERAL: When I saw her this afternoon, she was resting, almost slightly propped up in bed, in no apparent respiratory distress. She was somewhat pale, but no jaundice, cyanosis, or thyromegaly. No jugular venous distension. No limb edema. VITAL SIGNS: Her heart rate prior to discharge was 88, blood pressure was 106/59, temperature was 98.9, respiratory rate was 20, and oxygen saturation was 95% on 4 liters of oxygen. HEAD, EYES, EARS, NOSE AND THROAT: Showed normocephalic, atraumatic. NECK: Supple. HEART: Showed normal first and second heart sounds with no gallop or murmur. CHEST: Showed central trachea, equally reduced expansion, reduced air entry, vesicular sounds. I could not really appreciate any crepitation or rhonchi. ABDOMEN: Scaphoid, soft, nontender. NEUROLOGIC: She is somewhat sleepy, but arousable. All cranial nerves intact. EXTREMITIES: She moves extremities without difficulty. LABORATORY DATA: Showed a white cell count 12,600, hemoglobin 11.9, hematocrit 37, MCV 93, and platelet count of 379,000. Her chemistry showed a serum sodium 140, potassium 4.7, chloride 103, bicarbonate 32, anion gap of 5, BUN 15, creatinine 1.1. Her blood gases showed a pH of 7.35, pCO2 of 60, pO2 of 129, bicarbonate 33 and oxygen saturation was 99% on FiO2 of 36%. DISCHARGE MEDICATIONS: She was discharged home to continue with all her medications. I will also discharge her on Roxanol and Ativan. Dictation Ends Here. INDU YANES MD DR: ODILIA/victorino JOB#: [id number] / [id number]
--- NOTE | 2020-03-28 04:49 | PN ---
DATE: 03/27/2020 SUBJECTIVE: The patient was sitting on the edge of the bed in a tripod position in severe respiratory distress. Her oxygen saturation on 4 liters dropped down to 84%. She apparently was told by the nurse that she had her breathing treatment only on 2 liters and apparently she became extremely anxious and distressed immediately after giving her a nebulizer treatment. She was lying in bed, almost flat. Her oxygen saturation was 97% on 4 liters. PHYSICAL EXAMINATION: GENERAL: When I examined her during her distress, she was extremely tachypneic, pale, but not jaundiced, cyanosis or thyromegaly. No jugular venous distention. No lower limb edema. VITAL SIGNS: Her heart rate was 110, blood pressure was 136/81, temperature was 97.7, respiratory rate was 30. Her oxygen saturation was 84% on 4 liters of oxygen that has improved up to 98% on 4 liters immediately after she had a breathing treatment. HEAD, EYES, NOSE, AND THROAT: Normocephalic, atraumatic. NECK: Supple. HEART: Showed normal first and second heart sounds with no gallop, rub or murmur. CHEST: Shows central trachea, equal bilateral chest expansion, air entry, vesicular sounds. She had a very few scattered rhonchi, could not appreciate any crepitation. ABDOMEN: Distended, soft, nontender. NEUROLOGIC: She was awake, alert, responding by nodding her head initially, she was immediately relaxed after a breathing treatment, and she was lying flat in bed without the use of any accessory muscles. We did actually have blood gases done at the time of this episode, which showed that her pH was 7.34, pCO2 of 59 and pO2 of 115 and a bicarbonate of 30. I spoke with Dr. Jama, and apparently, with this number, she does not qualify for Trelegy. I did consult Dr. Ureña, and I will probably speak to him personally to come and see her to assist us with management of her anxiety. INDU YANES MD DR: ODILIA/victorino JOB#: [id number] / [id number]
== END 2020-03-27 16:11 | disposition hospice, home (50) | DRG 291 ==
LOC: ER 22:44 → 1 SOUTH 03-26 00:42
PROVIDERS: ADMIT Internal Medicine; ATTEND Internal Medicine
DX: I11.0 Hypertensive heart disease with heart failure (principal); J96.21 Acute and chronic respiratory failure with hypoxia; J96.22 Acute and chronic respiratory failure with hypercapnia; E87.2 Acidosis; I50.33 Acute on chronic diastolic (congestive) heart failure; D72.829 Elevated white blood cell count, unspecified; E03.9 Hypothyroidism, unspecified; E78.5 Hyperlipidemia, unspecified; F41.0 Panic disorder [episodic paroxysmal anxiety]; I25.10 Atherosclerotic heart disease of native coronary artery without angina pectoris; I25.2 Old myocardial infarction; J43.9 Emphysema, unspecified; M15.9 Polyosteoarthritis, unspecified; M81.0 Age-related osteoporosis without current pathological fracture; Z87.891 Personal history of nicotine dependence; Z95.5 Presence of coronary angioplasty implant and graft; Z90.49 Acquired absence of other specified parts of digestive tract; Z88.8 Allergy status to other drugs, medicaments and biological substances
CPT/HCPCS: 36415; 71275; 80053; 82553; 82803; 83605; 83735; 83880; 84484; 85007; 85025; 85027; 87040; 93005; 94640; 96360; J0456; J2930; J7512; Q9967; 99285-25; J7030; J7613